=== PATIENT | male | born 1940 | race Caucasian/White ===

== ENCOUNTER 2022-12-20 05:35 | Inpatient (IN) | payer MEDICARE, BC, SELFPAY ==
[2022-12-20] VITALS (117 sets, daily range): BP systolic 78–130; BP diastolic 52–111; PULSE 66–155; RESP 12–35; TEMP 36.4–37.3; O2SAT 89–100; BMI 32.5
--- NOTE | ~2022-12-20 | XR_ITS ---
MODIFIED ESOPHAGRAM HISTORY: Dysphagia. TECHNIQUE: Modified barium esophagram was performed on 12/26/2022. I administered fluoroscopy and per formed the exam with speech pathologist. Patient was seated for lateral fluoroscopic imaging for ing estion of thin liquids, pudding, solids and quantified amounts, followed by thin liquids in uncontrol led amounts. This was recorded on tape. A single fluoroscopic spot image was also recorded. The DAP f or this procedure was 3.083 Gycm2. The amount of fluoroscopy time used during this procedure was 3.0 minutes. FINDINGS: Oral stage: Adequate function. Pharyngeal stage: Reduced laryngeal elevation and tongue base retraction. There is laryngeal penetrat ion with thin and nectar thick liquids without aspiration. This is improved with small sips and head flexion.. Cervical/esophageal stage: Adequate function. IMPRESSION: Pharyngeal dysphagia with laryngeal penetration without aspiration. Please correlate wit h speech pathologist findings and specific feeding recommendations. Reviewed, dictated and finalized at location A. IMPRESSION: Pharyngeal dysphagia with laryngeal penetration without aspiration. Please correlate with speech pathologist findings and specific feeding recomm endations.
--- NOTE | ~2022-12-20 | XR_ITS ---
EXAMINATION: XR barium swallow DATE: 12/25/2022 14:10 INDICATION: Dysphagia TECHNIQUE: The patient drank thick barium, gas-producing crystals, and thin barium. Fluoroscopic spot radiographs of the hypopharynx and esophagus were obtained. Fluoroscopy exposure time was 1.8 minut es. Total DAP was 22.114 Gycm^2 COMPARISON: CT dated 12/23/2022 FINDINGS: The pharynx is symmetric and without evidence of mass lesion or mucosal irregularity. There is small amount of laryngeal penetration without evident aspiration. The left atrium appears to exer t mass effect upon the distal esophagus which is deviated towards the left. There is an oblique band of extrinsic compression with the esophagus passes between the left atrium and the more posterior aor ta. There is a relatively abrupt change in course of the esophagus as it exits the thoracic hiatus. T he esophagus is otherwise normal without mass or stricture. There is interruption of the primary jing staltic wave at the junction of the mid to distal esophagus with subsequent tertiary contractions in the more proximal esophagus. There is no hiatal hernia. There was no gastroesophageal reflux with pro vocative maneuvers. IMPRESSION: 1. Mild likely age-related esophageal dysmotility as well as nonobstructing extrinsic compression of the esophagus were passed from medial collateral between the left atrium and the descending aorta. No evident strictures, mucosal irregularities or abnormal masses. 2. Small amount of laryngeal penetration without evident aspiration. Consider further formal evaluati on with modified swallow study performed in conjunction with the department of speech pathology. Reviewed, dictated and finalized at location A. IMPRESSION: 1. Mild likely age-related esophageal dysmotility as well as nonobstructing ext rinsic compression of the esophagus were passed from medial collateral between the left atrium and the descending aorta. No evident strictures, mucosal irregu larities or abnormal masses. 2. Small amount of laryngeal penetration without evident aspiration. Consider f urther formal evaluation with modified swallow study performed in conjunction w [facility] the department of speech pathology.
--- NOTE | ~2022-12-20 | XR_ITS ---
XR chest 1V portable 12/21/2022 17:41 Indication: Decreased level consciousness. Shortness of breath. Procedure: AP portable chest Comparison: Comparison to multiple prior studies sequentially, with oldest reviewed study dated 05/30. Findings: Heart size normal. Pacemaker leads are stable. Left basilar airspace disease. Small left pl eural effusion. No pneumothorax. No acute osseous abnormality. Impression: 1: Left basilar airspace disease may represent atelectasis or developing pneumonia. Reviewed, dictated and finalized at location A. Impression: 1: Left basilar airspace disease may represent atelectasis or developing pneumo zelalem.
--- NOTE | ~2022-12-20 | XR_ITS ---
Portable chest x-ray Comparison: 05/30/2006 Clinical History: Shortness of breath Findings: Questionable minimal interstitial prominence, nonspecific. No consolidation or definite pl eural effusion. Cardiomediastinal silhouette is stable, with pacemaker device. Bones and soft tissue s are unremarkable. Impression: Questionable minimal interstitial prominence. Correlate for minimal interstitial edema or chronic int erstitial disease. Pacemaker device. Reviewed, dictated and finalized at location . Impression: Questionable minimal interstitial prominence. Correlate for minimal interstitia l edema or chronic interstitial disease. Pacemaker device.
--- NOTE | ~2022-12-20 | CT_ITS ---
EXAMINATION: CT soft tissue neck chest wo DATE: 12/23/2022 16:34 INDICATION: Dysphagia TECHNIQUE: Computed tomography (CT) of the neck and chest was performed with 75 mL Omnipaque-350 intr avenous contrast. Sagittal and coronal reconstructions were performed. Automated exposure control and iterative reconstruction technique were employed. The dose-length product was 1114.91 mGy-cm. COMPARISON: None FINDINGS: NECK: Changes of bilateral intraocular lens replacement. Orbits are otherwise normal. Minimal dependently layering fluid in the left sphenoid sinus. Mastoid air cells are clear. Submandibular and parotid gla nds are symmetric. Thyroid gland is unremarkable. There are scattered normal-sized lymph nodes in the neck, no lymphadenopathy. No masses identified. Atherosclerotic calcification is at the bilateral c arotid bulbs. Airway is unremarkable. Severe cervical spondylosis with anterior and posterior fusion at C3-C5. CHEST: Small to moderate-sized bilateral posterior layering pleural effusions with dependent compressive ate lectasis in the bilateral upper and lower lobes. Aerated portions the lungs appear clear with no pulm onary edema. Heart size is normal. Atherosclerotic coronary artery calcifications. Aortic valve and m itral annular calcifications. Dual-lead cardiac pacemaker with lead tips at the right atrium and righ t ventricle. Thoracic aorta is normal in caliber. No pathologically enlarged thoracic lymphadenopathy . Multiple hepatic cysts the largest measuring 7 cm the left hepatic lobe. Severe thoracic spondylos is with minimal to mild anterior wedging at a few levels in the mid and lower thoracic spine. IMPRESSION: 1. Small to moderate-sized bilateral posterior layering pleural effusions with dependent compressive atelectasis. 2. No etiology for reported dysphagia. No abnormal masses or pathologically enlarged lymphadenopathy identified in the and neck or chest. Reviewed, dictated and finalized at location A. IMPRESSION: 1. Small to moderate-sized bilateral posterior layering pleural effusions with dependent compressive atelectasis. 2. No etiology for reported dysphagia. No abnormal masses or pathologically enl arged lymphadenopathy identified in the and neck or chest.
--- NOTE | ~2022-12-20 | XR_ITS ---
EXAMINATION: XR chest PICC line DATE: 12/23/2022 12:26 INDICATION: Central line placement. TECHNIQUE: A single frontal view of the chest was obtained. COMPARISON: Chest single view 12/21/2022 FINDINGS: There are mild airspace opacities in right mid and lower lung zones and left lower lung zon e. No pleural effusion or pneumothorax. The heart size is normal. There is a left chest wall pacer wi th leads in the right atrium and right ventricle. A right upper extremity peripherally inserted centr al venous catheter (PICC) is seen with tip in the superior vena cava. IMPRESSION: 1. PICC tip in the superior vena cava. 2. Mild airspace opacities in right mid and lower lung zones and left lower lung zone with worsening on the right, consistent with atelectasis versus pneumonia. Reviewed, dictated and finalized at location A. IMPRESSION: 1. PICC tip in the superior vena cava. 2. Mild airspace opacities in right mid and lower lung zones and left lower hattie g zone with worsening on the right, consistent with atelectasis versus pneumoni a.
--- NOTE | 2022-12-20 05:37 | ECG_ITS ---
Measurements Intervals [place] Rate: 142 P: [place]: 0 QRS: -26 QRSD: 134 T: 140 QT: 312 QTc: 481 Interpretive Statements ATRIAL FIBRILLATION WITH RAPID VENTRICULAR RESPONSE LEFT BUNDLE BRANCH BLOCK [120+ ms QRS DURATION, 80+ ms Q/S IN V1/V2, 85+ ms R IN I/aVL/V5/V6] ABNORMAL ECG NO PREVIOUS ECG AVAILABLE FOR COMPARISON Electronically Signed On 12-20-2022 10:32:48 CDT by Stanley Caldwell M.D.
--- NOTE | 2022-12-20 05:47 | ED.ARRPALP ---
HPI - Arrhythmia/Palpitations General Chief Complaint: Arrhythmia/Palpitations <Elizabeth Ellis MD - Last Filed: 12/20/22 05:58> Stated Complaint: SOB, TACHYCARDIC <Elizabeth Ellis MD - Last Filed: 12/20/22 05:58> Time Seen by Provider: 12/20/22 05:43 <Elizabeth Ellis MD - Last Filed: 12/20/22 05:58> Source: patient, family, EMS and RN notes reviewed <Moon Pa MD - Last Filed: 12/20/22 17:52> Mode of arrival: EMS <Moon Pa MD - Last Filed: 12/20/22 17:52> Limitations: no limitations <Moon Pa MD - Last Filed: 12/20/22 17:52> History of Present Illness HPI narrative: Pt presents to the ER with shortness of breath and a sensation of something popping in his neck. He has a history of afib and his HR is 140s. EMS gave him metoprolol en route. He denies chest pain <Elizabeth Ellis MD - Last Filed: 12/20/22 05:58> Pt presents to the ER with shortness of breath and a cough. His family states patient has been cough for 2 days. He has cough with clear phlegm. His family states he has coughing spells that make his face turn red. Patient reports he feels short of breath with severe coughing. He took tessalon perles prior to arrival . He denies fever, chills, leg swelling. His family states patient was in hospital in september for afib. They reporte he was discharged still in afib. EMS gave him metoprolol en route. He denies chest pain <Moon Pa MD - Last Filed: 12/20/22 17:52> Related Data Home Medications: Home Medications Medication Instructions Recorded Confirmed diltiazem HCl 120 mg 120 mg PO DAILY 12/20/22 12/20/22 capsule,extended release 24 hr rosuvastatin 5 mg tablet 5 mg PO HS 12/20/22 12/20/22 tamsulosin 0.4 mg capsule 0.4 mg PO HS 12/20/22 12/20/22 warfarin 5 mg tablet mg 12/20/22 <Elizabeth Ellis MD - Last Filed: 12/20/22 05:58> Allergies/Adverse Reactions: Allergies Allergy/AdvReac Type Severity Reaction Status Date / Time codeine Allergy Unknown Verified 06/24/08 15:37 milk Allergy Unknown LACTOSE Verified 06/24/08 15:37 INTOLERANT <Elizabeth Ellis MD - Last Filed: 12/20/22 05:58> Review of Systems Review of Systems: ros negative except for what is documented in the hpi <Elizabeth Ellis MD - Last Filed: 12/20/22 05:58> Constitutional: Constitutional: Denies weakness <Moon Pa MD - Last Filed: 12/20/22 17:52> ENT: Reports sore throat <Moon Pa MD - Last Filed: 12/20/22 17:52> Cardiovascular: Cardiovascular: Denies syncope, Denies rapid heart rate, Reports irregular heart rhythm, Denies leg edema and Reports dyspnea <Moon Pa MD - Last Filed: 12/20/22 17:52> Respiratory: Respiratory: Reports chest congestion, Reports cough, Denies hemoptysis, Denies excessive phlegm production and Reports dyspnea <Moon Pa MD - Last Filed: 12/20/22 17:52> Gastrointestinal: Gastrointestinal: Denies abdominal pain, Denies hematochezia, Denies diarrhea and Denies vomiting <Moon Pa MD - Last Filed: 12/20/22 17:52> Genitourinary: Genitourinary: Denies hematuria, Denies dysuria, Denies penile discharge and Denies testicular pain <Moon Pa MD - Last Filed: 12/20/22 17:52> Musculoskeletal: Musculoskeletal: Denies joint swelling, Denies loss of height and Denies muscle weakness <Moon Pa MD - Last Filed: 12/20/22 17:52> Neurologic: Denies syncope, Denies focal weakness and Denies weakness <Moon Pa MD - Last Filed: 12/20/22 17:52> [facility] Past Medical History Medical History: Medical History (Updated 12/20/22 @ 17:52 by Moon Pa MD) Atrial fibrillation BPH (benign prostatic hyperplasia) HLD (hyperlipidemia) [place] (hard of hearing) IRIS on CPAP <Elizabeth Ellis MD - Last Filed: 12/20/22 05:58> Surgical History Surgical History: Surgical History (Updated 12/20/22 @ 14:18 by Ute
[2022-12-20 06:04] LABS: Basophils Percent Auto 0.5 % (0.2-1.2); Eosinophils Absolute Auto 0.1 K/mm3 (0-0.3); Eosinophils Percent Auto 0.9 % (0-4.4); Hematocrit 38.3 % (42.0-52.0); Hemoglobin 12.7 g/dL (14.0-18.0); Immature Granulocyte Absolute 0.07 K/mm3 (0.00-0.031); Immature Granulocyte Percent A 0.9 % (0-0.5); Lymphocytes Absolute Auto 0.88 K/mm3 (0.9-3.2); Lymphocytes Percent Auto 11.1 % (18.3-44.2); Mean Corpuscular HGB Conc 33.2 g/dl (32-36); Mean Corpuscular Hemoglobin 31.7 pg (26-34); Mean Corpuscular Volume 95.5 fl (80-100); Mean Platelet Volume 10.9 fl (7.4-10.4); Monocytes Absolute Auto 0.5 K/mm3 (0.1-0.6); Monocytes Percent Auto 5.9 % (2.6-8.5); Neutrophils Absolute Auto 6.4 K/mm3 (1.3-6.7); Neutrophils Percent Auto 80.7 % (45.5-73.1); Platelet Count Result 150 k/mm3 (150-375); Red Blood Count 4.01 M/mm3 (4.6-6.20); Red Cell Distribution Width 13.7 % (11.5-14.5); White Blood Count 7.9 K/mm3 (4.5-10.0)
[2022-12-20 06:15] LABS: INR 2.4; Prothrombin Time 27.7 Seconds (11.1-14.7)
[2022-12-20 06:16] LABS: Partial Thromboplastin Time 41.9 SECONDS (22.3-36.8)
[2022-12-20 06:17] LABS: Alanine Aminotransferase 23 U/L (6-50); Albumin Level 3.7 g/dL (3.5-5.1); Alkaline Phosphatase 75 U/L (38-126); Anion Gap 6 mmol/L (8-16); Aspartate Amino Transferase 27 U/L (17-59); Bilirubin,Total 1.6 mg/dL (0.2-1.3); Blood Urea Nitrogen 25 mg/dL (9-20); Carbon Dioxide 23 mmol/L (22-30); Chloride 105 mmol/L (98-107); Estimated CRCL calculation 48 ml/min; Estimated Glomerular Filt Rate 58; Glucose 113 mg/dL (65-110); Lipase 82 U/L (23-300); Potassium 3.8 mmol/L (3.4-5.0); Sodium 134 mmol/L (137-145)
[2022-12-20 06:28] LABS: Troponin I < 0.012 ng/mL (0.000-0.034)
[2022-12-20] MEDS: dilTIAZem HCl INJ 25 MG/5 ML VIAL 10 MG IV PUSH (06:31)
[2022-12-20 06:41] LABS: D Dimer 0.66 ug/mL (<0.48)
[2022-12-20 06:45] LABS: Influenza A QL RT-PCR Negative (Negative); Influenza B QL RT-PCR Negative (Negative); RSV RNA, RT-PCR Negative (Negative); SARS-CoV-2 RNA PCR Negative (Negative)
[2022-12-20] MEDS: dilTIAZem 100 MG/100 ML 100 MG/100 ML BAG IV CONT (06:52)
[2022-12-20] MEDS: BENZONATATE 100 MG CAPSULE PO (07:25)
--- NOTE | 2022-12-20 09:09 | PC.NURSE ---
0858 IV that Cardizem was administering through assessed to be infiltrated. IV insertion site assessed to have hematoma and redness. IV removed intact and Cardizem is now administering through the L forearm. Pts dosage rate dropped to 5mL/hr due to IV infiltration. aware.
[2022-12-20 09:36] LABS: Troponin I < 0.012 ng/mL (0.000-0.034)
[2022-12-20 12:19] LABS: Troponin I < 0.012 ng/mL (0.000-0.034)
--- NOTE | 2022-12-20 14:11 | PM.IMHP ---
H&P: HPI History of Present Illness Date/Time: 12/20/22 14:11 Chief Complaint: Cough, SOB Narrative: 82-year-old male presents here with worsening shortness of breath for the last 3 days, dry cough, tachycardia with past medical history of atrial fibrillation on Warfarin, pacemaker, [place], HLD, BPH, and IRIS. Patient reports that he has had increasing shortness of breath with activity over the last few months, used to be able to walk approximately a block and is now winded with activity. Over the last 3 days his shortness of breath has worsened. Shortness of breath is accompanied by a dry cough. Patient has spells of coughing where he is unable to catch his breath and experiences facial flushing. Endorses occasional acid reflux symptoms and belching. Also noticed a popping sensation to his left lateral neck whenever he leans forward for the past few months. He denies any current fever, nausea, vomiting, diarrhea. Reports baseline rhinorrhea. Denies any current chest pain. Recent increase in stress due to being on hospice care and not doing well. Review of Systems Review of Systems: All systems reviewed & are unremarkable except as noted in HPI and below PMFSH Past Medical History Medical History (Updated 12/20/22 @ 17:52 by Moon Pa MD) Atrial fibrillation BPH (benign prostatic hyperplasia) HLD (hyperlipidemia) [place] (hard of hearing) IRIS on CPAP Surgical History Surgical History (Updated 12/20/22 @ 14:18 by Keara Stiles APRN) History of pacemaker Social History Social History (Updated 12/21/22 @ 00:23 by Keara Stiles APRN) Social History: Currently lives at home alone. being cared for at a facility. 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 Surrogate decision maker: Ronnie Durand, son. DNR. Smoking status: Never smoker Alcohol intake: never Substance use: never Lack of Transportation: No Lack of Food: Never True Current Housing: I Have Housing Concerned About Future Housing: No Difficulty Paying Gas/Electric Bills: No Difficulty Paying for Meds: No Currently Unemployed: No Education: Don't Know Difficulty w/ Childcare or Family Care: No Spiritual care concerns: No Meds Home Medications and Allergies Home Medications Medication Instructions Recorded Confirmed Type calcium citrate 315 mg-vitamin D3 315 tablet PO BID 12/20/22 12/20/22 History 5 mcg (200 unit) tablet (Calcium Citrate + D) cholecalciferol (vitamin D3) 25 25 mcg PO BID 12/20/22 12/20/22 History mcg (1,000 unit) tablet (Vitamin D3) diltiazem HCl 120 mg 120 mg PO DAILY 12/20/22 12/20/22 History capsule,extended release 24 hr glucosamine sulf dipot 550 cap PO BID 12/20/22 12/20/22 History chlr,msm,chond 550 mg-C 30 mg-jaleel 1 mg capsule (Glucosamine Chondroitin) rosuvastatin 5 mg tablet 5 mg PO HS 12/20/22 12/20/22 History tamsulosin 0.4 mg capsule 0.4 mg PO HS 12/20/22 12/20/22 History warfarin 5 mg tablet See Rx Instructions .Route .COMPLEX 12/20/22 12/20/22 History Allergies Allergy/AdvReac Type Severity Reaction Status Date / Time carvedilol Allergy Unknown Unknown Verified 12/20/22 19:09 codeine Allergy Unknown Hallucinati Verified 12/20/22 19:09 ng milk Allergy Unknown LACTOSE Verified 06/24/08 15:37 INTOLERANT Vital Signs Vital Signs - 24 hr 12/20/22 05:33 12/20/22 05:50 12/20/22 05:53 Temperature 99.1 F Pulse Rate 152 H 136 H 152 H Respiratory Rate 19 15 Blood Pressure 101/90 102/81 Pulse Oximetry 93 93 Oxygen Delivery Room Air 12/20/22 06:49 12/20/22 06:52 12/20/22 07:29 Temperature Pulse Rate 118 H 123 H 137 H Respiratory Rate 15 Blood Pressure 101/74 101/74 102/89 Pulse Oximetry 95 Oxygen Delivery 12/20/22 05:53 12/20/22 06:00 12/20/22 06:01 Temperature Pulse Rate 155 H 150 H 134 H Respiratory Rate 15 21 H 19 Blood Pressure 102/81 109/98 H Pulse Oximetry 92 92 92 Oxyge
[2022-12-20 14:18] LABS: NT Pro B Type Natriuretic Pept 5070 pg/mL (19.9-100)
[2022-12-20] MEDS: DEXTROMETHORPHAN POLISTIREX 60 MG/10 ML SYRINGE PO (14:23)
[2022-12-20] MEDS: BELLADONNA ALK/PHENOB ELIX 10 ML, MAG HYDROX/ALUMINUM HYD/SIMETH 30 ML, LIDOCAINE HCL 2... PO (14:59)
[2022-12-20] MEDS: dilTIAZem 100 MG/100 ML 100 MG/100 ML BAG 15 MG (16:53)
--- NOTE | 2022-12-20 17:05 | ADMGEN ---
This patient, Socrates Durand, was admitted to IMU Room 212-01. Patient/family oriented to hospital policies and general routines including ID bracelet, bed and alarms, visiting hours, pain management, procedures, bathroom and other care routines, personal items, smoking policy, room service/diet, and visiting hours. Information on how to activate the Rapid Response Team has been discussed. Patient/Family are encouraged to report perceived risks to care and to ask questions if they do not understand what they are told or what they should do.
[2022-12-20] MEDS: dilTIAZem 100 MG/100 ML 100 MG/100 ML BAG 15 MG IV CONT (18:49)
[2022-12-20 20:45] LABS: Troponin I < 0.012 ng/mL (0.000-0.034)
[2022-12-20] MEDS: DIGOXIN INJ 250 MCG/ML 2 ML AMP (*BKC) IV PUSH (20:56)
[2022-12-21] VITALS (21 sets, daily range): BP systolic 97–111; BP diastolic 67–82; PULSE 66–130; RESP 16–22; TEMP 36.2–36.5; O2SAT 92–97
--- NOTE | 2022-12-21 | ECG_ITS ---
Measurements Intervals [place] Rate: 73 P: [place]: 0 QRS: -11 QRSD: 131 T: 120 QT: 384 QTc: 424 Interpretive Statements ELECTRONIC VENTRICULAR PACEMAKER Electronically Signed On 12-23-2022 17:05:54 CDT by Bradly Rashid M.D.
--- NOTE | 2022-12-21 | ECHO_ITS ---
Patient Info Name: Socrates Durand Age: 82 years : 1940 Gender: Male Ht: 69 in Wt: 223 lbs BSA: 2.25 m2 HR: 112 bpm BP: 105 / 74 mmHg Heart Rhythm: Tachycardia, Atrial Fibrillation Technical Quality: Poor Exam Date: 12/21/2022 1:01 PM Exam Location: [facility] Pulmonary Exam Room: [facility] Patient Status: Inpatient Admit Date: 12/21/2022 Staff Ordering Physician: Keara Stiles APRN Freezer Worker: Amanda Mccoy RDCS Attending Provider: Lela Robledo MD Referring Physician: Go IVEY; Exam Type: CA echo dop color flow w con Study Info Indications - ELEVATED BNP SOB Complete two-dimensional, color flow and Doppler transthoracic echocardiogram is performed with contrast to opacify the left ventricle and to improve the deliniation of the left ventricle endocardial borders. Contrast/Agitated Saline Contrast/Ag. Saline: Definity Amount: 2.00 ml Administered By: Amanda Mccoy [facility] Existing IV Access: Yes IV Access Condition: patent with no signs of infiltration Reason for Poor Study: patient body habitus Summary 1. Technically difficult study. 2. Left ventricular chamber dimension is normal. 3. Left ventricular systolic function is moderately reduced, estimated at 30-35%. Of note, patient is tachycardic at the time of this study. 4. Left atrial chamber dimension is moderately enlarged. 5. Right atrial chamber dimension is moderately enlarged. 6. There is severe aortic valve calcification. The aortic valve mean gradient on this study is 5mmHg with a normal JAMAR. However, the aortic valve was not well assessed on this study, and given the severe calcifications, recommend a follow-up study or consider WENDY for better assessment of the aortic valve if concern for significant aortic stenosis. 7. There is moderate mitral valve regurgitation. 8. There is moderate to severe tricuspid valve regurgitation. 9. Pulmonary hyperetension. Estimated pulmonary arterial systolic pressure is 50 mmHg. 10. There is trivial pericardial effusion. Left Ventricle Left ventricular chamber dimension is normal. Left ventricular systolic function is moderately reduced, estimated at 30-35%. Of note, patient is tachycardic at the time of this study. There is no increased left ventricular wall thickness. Left ventricular septal wall motion is abnormal with septal motion related to bundle branch block. The left ventricular diastolic function is indeterminate. Right Ventricle Linear artifact in right ventricle suggestive of catheter(s), pacemaker lead(s), or ICD lead(s). Right ventricular chamber dimension is normal. Left Atria Left atrial chamber dimension is moderately enlarged. Right Atria Linear artifact in the right atrium suggestive of catheter(s), pacemaker lead(s), or ICD lead(s). Right atrial chamber dimension is moderately enlarged. Atrial Septum Intact interatrial septum visualized by color flow imaging. Aortic Valve The aortic valve is probable trileaflet. There is no aortic valve regurgitation. There is severe aortic valve calcification. The aortic valve mean gradient on this study is 5mmHg with a normal JAMAR. However, the aortic valve was not well assessed on this study, and given the severe calcifications, recommend a follow-up study or consider WENDY for better assessment of the aortic valve if concern for significant aortic stenosis. Pulmonic Valve The pulmonic valve is not well visualized. Mitral Valve There is moderate mitral valve regurgitation. The mitral valve annulus is severely calcified. Tricuspid Valve
[2022-12-21] MEDS: dilTIAZem 100 MG/100 ML 100 MG/100 ML BAG 15 MG IV CONT ×3 (05:10→12:39)
[2022-12-21 05:22] LABS: Basophils Percent Auto 0.1 % (0.2-1.2); Eosinophils Percent Auto 0.4 % (0-4.4); Hematocrit 36.7 % (42.0-52.0); Hemoglobin 12.4 g/dL (14.0-18.0); Immature Granulocyte Absolute 0.04 K/mm3 (0.00-0.031); Immature Granulocyte Percent A 0.5 % (0-0.5); Immature Platelet Fraction Pct 5.6 % (0.9-11.2); Lymphocytes Absolute Auto 1.05 K/mm3 (0.9-3.2); Lymphocytes Percent Auto 13.3 % (18.3-44.2); Mean Corpuscular HGB Conc 33.8 g/dl (32-36); Mean Corpuscular Volume 94.6 fl (80-100); Mean Platelet Volume 11.1 fl (7.4-10.4); Monocytes Absolute Auto 0.6 K/mm3 (0.1-0.6); Monocytes Percent Auto 7.4 % (2.6-8.5); Neutrophils Absolute Auto 6.2 K/mm3 (1.3-6.7); Neutrophils Percent Auto 78.3 % (45.5-73.1); Platelet Count Result 146 k/mm3 (150-375); Red Blood Count 3.88 M/mm3 (4.6-6.20); Red Cell Distribution Width 13.6 % (11.5-14.5); White Blood Count 7.9 K/mm3 (4.5-10.0)
[2022-12-21 05:34] LABS: Alanine Aminotransferase 21 U/L (6-50); Albumin Level 3.2 g/dL (3.5-5.1); Alkaline Phosphatase 61 U/L (38-126); Anion Gap 7 mmol/L (8-16); Aspartate Amino Transferase 26 U/L (17-59); Bilirubin,Total 1.9 mg/dL (0.2-1.3); Blood Urea Nitrogen 23 mg/dL (9-20); Calcium 8.3 mg/dL (8.4-10.2); Carbon Dioxide 20 mmol/L (22-30); Chloride 105 mmol/L (98-107); Estimated CRCL calculation 48 ml/min; Estimated Glomerular Filt Rate 58; Glucose 94 mg/dL (65-110); Sodium 132 mmol/L (137-145)
[2022-12-21] MEDS: CHOLECALCIFEROL 1,000 UNITS TABLET 1000 UNITS PO (09:43)
--- NOTE | 2022-12-21 10:53 | PM.CNCAR ---
Assessment and Plan Assessment and plan (1) Atrial fibrillation with rapid ventricular response: Code(s): I48.91 - Unspecified atrial fibrillation Status: Acute Assessment and Plan: Continue diltiazem drip for now. Will give him a dose of IV amiodarone to see if this will help in slowing his heart rate. Blood pressure is a bit low but will ideally use of beta-jan. If blood pressure remains stable, will add metoprolol. Continue warfarin for anticoagulation. 2D echocardiogram Doppler will be ordered and reviewed. (2) Chronic anticoagulation: Code(s): Z79.01 - [facility] (current) use of anticoagulants Status: Acute Assessment and Plan: Continue warfarin (3) Nonproductive cough: Code(s): R05.8 - Other specified cough Status: Acute (4) CHF (congestive heart failure): Code(s): I50.9 - Heart failure, unspecified Status: Acute Assessment and Plan: Probably related atrial fibrillation rapid ventricular response and systolic/diastolic heart failure. We will start furosemide 40 mg IV x1 now and daily. Low-salt diet. Intake and output and daily weights. (5) Left bundle branch block: Code(s): I44.7 - Left bundle-branch block, unspecified Status: Acute Assessment and Plan: Echo pending (6) Pacemaker: Code(s): Z95.0 - Presence of cardiac pacemaker Status: Acute Assessment and Plan: Biotronik device. Like to have a download to see how long he has been in atrial fibrillation what his average ventricular response rate has been History of Present Illness History of Present Illness Consult date/time: 12/21/22 10:53 Requesting physician: Moon Pa MD Consult reason: atrial fibrillation Reason For Visit: afib with rvr,chf Narrative: Reason consultation AFib, CHF Date of service 12/21/2022 Requesting provider: Dr. Pa History: Patient 82-year-old male patient Dr. Rain who has a history of a pacemaker, atrial fibrillation on warfarin, hyperlipidemia sleep apnea who presented hospital because of coughing and shortness of breath. Patient feels like he has been more short of breath over the past several weeks. He has also had some swelling. Biggest complaint more worrisome complaints does coughing spells in which she nearly passes out. He will cough so hard his face will turn red. He denies any chest pain except due to coughing. No syncope, presyncope. Does have lower extremity swelling over the past couple of weeks also. He does not feel his palpitations. He usually feels weak whenever he is in AFib in has felt so over the past few weeks. He denies any bleeding issues. Came to the hospital and was found to be in atrial fibrillation with rapid ventricular response. Started on diltiazem drip for which he remains. Heart rate is still mildly elevated. He also had some pulmonary edema. Review of Systems Review of Systems: All systems reviewed & are unremarkable except as noted in HPI and below Constitutional: Constitutional: Denies body ache(s) and Reports weakness Eyes: Eyes: Denies blurry vision ENT: Reports Normal hearing present Cardiovascular: Cardiovascular: Denies chest pain and Reports leg edema Respiratory: Respiratory: Reports dyspnea Gastrointestinal: Gastrointestinal: Denies abdominal pain Genitourinary: Genitourinary: Denies hematuria Musculoskeletal: Musculoskeletal: Denies back pain Integumentary/Breasts: Skin/Breast: Denies dry skin Neurologic: Denies Abnormal speech present Psychiatric: Psychiatric: Denies anxiety Endocrine: Endocrine: Denies excessive sweating Hematologic/Lymphatic: Hematologic/Lymphatic: Denies easy bleeding Allergic/Immunologic: Allergic/Immunologic: Denies GI upset with certain foods PMFSH Past Medical History Medical History Atrial fibrillation BPH (benign prostatic hyperplasia) HLD (hyperli
[2022-12-21] MEDS: FUROSEMIDE INJ 40 MG/4 ML VIAL IV PUSH (12:13)
[2022-12-21] MEDS: PERFLUTREN LIPID MICROSPHERES 1.5 ML VIAL DILUTED TO 10 ML TOTAL VOLUME IV PUSH (13:40)
[2022-12-21] MEDS: METOPROLOL TARTRATE 25 MG TABLET PO (14:03)
--- NOTE | 2022-12-21 14:24 | PM.IMPN ---
Progress Note: A&P Assessment and Plan (1) CHF (congestive heart failure): Code(s): I50.9 - Heart failure, unspecified Status: Acute (2) Chronic anticoagulation: Code(s): Z79.01 - [facility] (current) use of anticoagulants Status: Acute (3) Atrial fibrillation with rapid ventricular response: Code(s): I48.91 - Unspecified atrial fibrillation Status: Acute (4) Pacemaker: Code(s): Z95.0 - Presence of cardiac pacemaker Status: Acute Plan 82M w/ PMH IRIS on CPAP, HLD, BPH, a fib, PPM, on coumadin presents with progressive SOB 1) a fib w/ RVR - on diltiazem. cardiology consulted. they are giving lasix and metoprolol PO. continue to monitor. pt reports some kind of reaction when given amiodarone. we are avoiding that for now - echo pending 2) HF - pending echo - s/p lasix x1 - cont cardiac diet, I/O's daily weights and fluid restrition - cardiology to manage Diet:? Heart healthy, saline lock IV GI Prophylaxis:? Not currently indicated DVT Prophylaxis:? On warfarin, SCDs Lines: pIV Code Status: DNR Subjective Date/time seen: 12/21/22 14:24 Interval history: NAOE. pt feels same as yesterday, no cp no shortness of breath. Review of Systems Cardiovascular: Cardiovascular: Denies chest pain and Denies dyspnea Respiratory: Respiratory: Denies cough and Denies dyspnea Gastrointestinal: Gastrointestinal: Denies abdominal pain and Denies vomiting Exam Const: General: no acute distress, alert and Physically active Resp: Effort & Inspection: normal respiratory effort Auscultation: crackles (mild bibasilar crackles) Cardio: Rate: regular rate Rhythm: regular rhythm Heart sounds: S1 normal heart sound present and S2 normal heart sound present GI: Inspection: non-distended GI Palp: No abdominal tenderness Auscultation: normal bowel sounds Extrem: Right upper extremity: no edema Objective Data Vital Signs Vital Signs: Vital Signs - 24 hr 12/20/22 14:30 12/20/22 14:32 12/20/22 14:45 Temperature Pulse Rate 149 H 130 H Respiratory Rate 27 H 23 H Blood Pressure 126/62 Pulse Oximetry Oxygen Delivery 12/20/22 14:47 12/20/22 15:00 12/20/22 15:01 Temperature Pulse Rate 136 H 140 H 137 H Respiratory Rate 16 27 H 16 Blood Pressure 101/74 93/80 L Pulse Oximetry Oxygen Delivery 12/20/22 15:15 12/20/22 15:16 12/20/22 15:30 Temperature Pulse Rate 124 H 122 H 130 H Respiratory Rate 23 H 23 H 22 H Blood Pressure 106/79 Pulse Oximetry 93 92 Oxygen Delivery 12/20/22 15:31 12/20/22 15:32 12/20/22 15:45 Temperature Pulse Rate 126 H 112 H 133 H Respiratory Rate 24 H 22 H 20 Blood Pressure 100/85 Pulse Oximetry Oxygen Delivery 12/20/22 15:47 12/20/22 16:00 12/20/22 16:01 Temperature Pulse Rate 111 H 131 H 118 H Respiratory Rate 35 H 20 27 H Blood Pressure 116/94 H 126/99 H Pulse Oximetry Oxygen Delivery 12/20/22 16:19 12/20/22 16:53 12/20/22 16:32 Temperature Pulse Rate 139 H 145 H 114 H Respiratory Rate 18 Blood Pressure 110/96 H 102/88 111/74 Pulse Oximetry 98 Oxygen Delivery 12/20/22 17:55 12/20/22 18:49 12/20/22 18:00 Temperature 98.3 F Pulse Rate 66 115 H 94 Respiratory Rate 18 Blood Pressure 130/53 L 130/53 L Pulse Oximetry 97 Oxygen Delivery 12/20/22 17:38 12/20/22 20:00 12/20/22 20:00 Temperature 97.5 F L Pulse Rate 129 H Respiratory Rate 22 H Blood Pressure 130/111 H Pulse Oximetry 97 92 92 Oxygen Delivery Room Air Room Air 12/20/22 20:00 12/21/22 00:00 12/21/22 00:00 Temperature 97.5 F L Pulse Rate 103 H 107 H Respiratory Rate 22 H Blood Pressure 97/71 L Pulse Oximetry 97 97 Oxygen Delivery Room Air 12/21/22 00:00 12/21/22 00:00 12/21/22 00:00 Temperature Pulse Rate 114 H 114 H 114 H Respiratory Rate Blood Pressure Pulse Oximetry Oxygen Delivery 12/21/22 01:40 12/21/22 03:54 10
--- NOTE | 2022-12-21 15:44 | PC.NURSE ---
BP 102/67. HR 120s sustained. Detailed message left with Dr. Caldwell.
[2022-12-21] MEDS: IPRATROPIUM BR 0.02% INH SOLN 0.5 MG/2.5 ML VIAL INHALATION (17:33)
[2022-12-21] MEDS: ALBUTEROL SULFATE NEB 2.5 MG/3 ML INH INHALATION (17:33)
--- NOTE | 2022-12-21 17:36 | PC.NURSE ---
Pt hit call light. Upon entering room pt was sitting in bed stating I don't feel well, I feel like I'm going to pass out. BP 103/57, HR 85, O2 87% RA. Afib on tele. Reports nausea. SOB. Charge nurse JEANNIE Matos and Dr. Robledo made aware. Dr. Caldwell consulted via [employer]. EKG completed. Paced Afib. Diltiazem gtt paused. Placed on 2L via NC.
--- NOTE | 2022-12-21 17:52 | PC.NURSE ---
Sitting up in bed. Alert and oriented x 4. Mild SOB at rest. States I'm feeling better but I don't think I want to eat. Reports feeling fatigued and weak. HR 82. BP 100/53. O293% ON 1L.
[2022-12-21] MEDS: WARFARIN (*PBKC) 2.5 MG TABLET PO (18:04)
[2022-12-21 18:13] LABS: Hemoglobin 13.2 g/dL (14.0-18.0); Mean Corpuscular Hemoglobin 31.9 pg (26-34); Mean Corpuscular Volume 96.6 fl (80-100); Mean Platelet Volume 10.6 fl (7.4-10.4); Platelet Count Result 157 k/mm3 (150-375); Red Blood Count 4.14 M/mm3 (4.6-6.20); Red Cell Distribution Width 14.3 % (11.5-14.5); White Blood Count 8.6 K/mm3 (4.5-10.0)
[2022-12-21 18:23] LABS: Lactic Acid Reflex 1.7 mmol/L (0.7-2.0)
[2022-12-21 18:24] LABS: Alanine Aminotransferase 22 U/L (6-50); Albumin Level 3.5 g/dL (3.5-5.1); Alkaline Phosphatase 70 U/L (38-126); Anion Gap 8 mmol/L (8-16); Aspartate Amino Transferase 29 U/L (17-59); Bilirubin,Total 1.6 mg/dL (0.2-1.3); Blood Urea Nitrogen 28 mg/dL (9-20); Calcium 8.4 mg/dL (8.4-10.2); Carbon Dioxide 21 mmol/L (22-30); Chloride 104 mmol/L (98-107); Estimated CRCL calculation 41 ml/min; Estimated Glomerular Filt Rate 48; Glucose 128 mg/dL (65-110); Potassium 4.3 mmol/L (3.4-5.0); Sodium 133 mmol/L (137-145)
[2022-12-21 18:25] LABS: Phosphorus 3.8 mg/dL (2.5-4.5)
[2022-12-21 18:36] LABS: Troponin I < 0.012 ng/mL (0.000-0.034)
--- NOTE | 2022-12-21 19:21 | PC.NURSE ---
Attempting to collect respiratory pathogen panel. Spoke with main lab, respiratory, and phlebotomy. Unable to locate collection information regarding way to obtain specimen and send for testing. Report given to oncoming shift. Will continue to follow up.
--- NOTE | 2022-12-21 19:57 | PC.NURSE ---
Daughter in law Judy reports patient was seen at [facility] in September where he was prescribed po Amiodarone. Pt began feeling strange 2 days after starting medication. Approximately 4 days after taking medication patient was found in room by Judy lethargic and incoherent. It was decided with pack press operator, Dr. Aguirre with [facility], that patient would stop taking medication as it may have been the culprit. Judy reports that the symptoms pt experienced tonight were similar to the symptoms he had with previous episode.
[2022-12-21] MEDS: DEXTROMETHORPHAN POLISTIREX 60 MG/10 ML SYRINGE PO (20:53)
[2022-12-21] MEDS: ROSUVASTATIN 5 MG TABLET PO (20:53)
[2022-12-21] MEDS: TAMSULOSIN HCL 0.4 MG CAPSULE PO (20:54)
[2022-12-22] VITALS (25 sets, daily range): BP systolic 103–115; BP diastolic 69–94; PULSE 61–141; RESP 16–22; TEMP 36.1–36.6; O2SAT 92–98
[2022-12-22] MEDS: dilTIAZem HCl INJ 25 MG/5 ML VIAL 5 MG IV PUSH (04:01)
[2022-12-22 04:38] LABS: INR 2.9; Prothrombin Time 32.4 Seconds (11.1-14.7)
[2022-12-22 04:54] LABS: Anion Gap 7 mmol/L (8-16); Blood Urea Nitrogen 29 mg/dL (9-20); Calcium 8.2 mg/dL (8.4-10.2); Carbon Dioxide 22 mmol/L (22-30); Chloride 105 mmol/L (98-107); Estimated CRCL calculation 41 ml/min; Estimated Glomerular Filt Rate 48; Glucose 93 mg/dL (65-110); Potassium 3.9 mmol/L (3.4-5.0); Sodium 134 mmol/L (137-145)
--- NOTE | 2022-12-22 09:34 | PM.PNCARD ---
Progress Note: A&P Assessment and Plan (1) Atrial fibrillation with rapid ventricular response: Code(s): I48.91 - Unspecified atrial fibrillation Status: Acute Assessment and Plan: Diltiazem discontinued yesterday by hospitalist because of vasovagal episode with significant coughing. His EF was 30-35% by echo yesterday, so diltiazem not the best choice for him anyhow. I had a very lengthy discussion with the patient and family members at the bedside regarding limited choices of medications for him because of his cardiomyopathy and reported history of allergies to amiodarone and carvedilol. Patient states that he became ?jittery? with amiodarone and also experienced weakness and was instructed by his primary care doctor to discontinue amiodarone. He adamantly denies any significant, life-threatening side effects of amiodarone including difficulty breathing, mouth or facial swelling. Discussed that at this point amiodarone would probably be the best choice to trying control his heart rate. Patient and family agree that side effects experienced with amiodarone very minimal and may be 90 minutes related to amiodarone therefore, benefit of amiodarone outweighs risk. Will start amiodarone bolus and drip per protocol. In terms of documented allergy to carvedilol, patient also denies any type of serious life-threatening reaction to this but does not specifically remember the reaction. Therefore, if need be could probably use metoprolol for rate control as well. He has been on warfarin for anticoagulation for many years but I discussed shifting to Eliquis. He is agreeable to this. Will discontinue warfarin and shift him to Eliquis. 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 Probably related atrial fibrillation rapid ventricular response and systolic/diastolic heart failure. We will start furosemide 40 mg IV x1 now and daily. Low-salt diet. Intake and output and daily weights. Summary 1. Technically difficult study. 2. Left ventricular chamber dimension is normal. 3. Left ventricular systolic function is moderately reduced, estimated at 30-35%. Of note, patient is tachycardic at the time of this study. 4. Left atrial chamber dimension is moderately enlarged. 5. Right atrial chamber dimension is moderately enlarged. 6. There is severe aortic valve calcification. The aortic valve mean gradient on this study is 5mmHg with a normal JAMAR. However, the aortic valve was not well assessed on this study, and given the severe calcifications, recommend a follow-up study or consider WENDY for better assessment of the aortic valve if concern for significant aortic stenosis. 7. There is moderate mitral valve regurgitation. 8. There is moderate to severe tricuspid valve regurgitation. 9. Pulmonary hypertension. Estimated pulmonary arterial systolic pressure is 50 mmHg. 10. There is trivial pericardial effusion. (5) Left bundle branch block: Code(s): I44.7 - Left bundle-branch block, unspecified Status: Acute (6) Pacemaker: Code(s): Z95.0 - Presence of cardiac pacemaker Status: Acute Assessment and Plan: Biotronik device. Interrogation ordered Subjective Date/time seen: 12/22/22 09:34 Interval history: Cardiology follow-up for atrial fibrillation, cardiomyopathy Date of service 12/22/2022: Feeling okay today but complaining of a persistent cough. He denies any chest pain, palpitations, shortness of breath. On telemetry, heart rate remains persistently elevated ge
[2022-12-22] MEDS: FUROSEMIDE INJ 40 MG/4 ML VIAL IV PUSH (09:36)
[2022-12-22] MEDS: CHOLECALCIFEROL 1,000 UNITS TABLET 1000 UNITS PO ×2 (09:37→16:54)
[2022-12-22] MEDS: DIGOXIN TAB 125 MCG TABLET PO (09:37)
[2022-12-22] MEDS: AMIODARONE 150 MG/D5W 100 ML 150 MG/100 ML BAG 600 MG IV CONT ×2 (11:52→18:01)
[2022-12-22] MEDS: AMIODARONE 360 MG/D5W 200 ML 360 MG/200 ML BAG 33.33 MG IV CONT (12:08)
--- NOTE | 2022-12-22 12:50 | PM.IMPN ---
Progress Note: A&P Assessment and Plan (1) CHF (congestive heart failure): Code(s): I50.9 - Heart failure, unspecified Status: Acute (2) Chronic anticoagulation: Code(s): Z79.01 - [facility] (current) use of anticoagulants Status: Acute (3) Atrial fibrillation with rapid ventricular response: Code(s): I48.91 - Unspecified atrial fibrillation Status: Acute (4) Pacemaker: Code(s): Z95.0 - Presence of cardiac pacemaker Status: Acute Plan 82M w/ PMH IRIS on CPAP, HLD, BPH, a fib, PPM, on coumadin presents with progressive SOB 1) a fib w/ RVR - failed diltiazem. cardiology consulted. currently being trialed on amiodarone, was also given digoxin - cont monitoring lytes - cont coumadin 2) HF - pending echo - s/p lasix x1 - cont cardiac diet, I/O's daily weights and fluid restrition - cardiology to manage 3) acute hypoxic respiratory failure - flash pulmonary edema. treat a fib Diet:? Heart healthy, saline lock IV GI Prophylaxis:? Not currently indicated DVT Prophylaxis:? On warfarin, SCDs Lines: pIV Code Status: DNR Subjective Date/time seen: 12/22/22 12:50 Interval history: NAOE. pt feels same as yesterday, no cp no shortness of breath. Review of Systems Cardiovascular: Cardiovascular: Denies chest pain Respiratory: Respiratory: Denies cough Gastrointestinal: Gastrointestinal: Denies abdominal pain and Denies vomiting Exam HENMT: Mouth: Yes moist mucous membranes Cardio: Rate: tachycardic Rhythm: abnormal rhythm GI: Inspection: non-distended Auscultation: normal bowel sounds Extrem: Right upper extremity: no edema Objective Data Vital Signs Vital Signs: Vital Signs - 24 hr 12/21/22 14:03 12/21/22 16:00 12/21/22 17:33 Temperature Pulse Rate 92 84 72 Respiratory Rate 20 20 Blood Pressure 102/67 Pulse Oximetry 92 Oxygen Delivery Oxygen Flow Rate Fraction of Inspired Oxygen 12/21/22 17:48 12/21/22 14:00 12/21/22 16:00 Temperature Pulse Rate 88 128 H 130 H Respiratory Rate 20 Blood Pressure Pulse Oximetry Oxygen Delivery Oxygen Flow Rate Fraction of Inspired Oxygen 12/21/22 18:00 12/21/22 16:00 12/21/22 20:00 Temperature 97.2 F L Pulse Rate 90 124 H Respiratory Rate 20 Blood Pressure 103/82 Pulse Oximetry 92 95 Oxygen Delivery Nasal Cannula Oxygen Flow Rate 1 Fraction of Inspired Oxygen 92 12/21/22 21:27 12/21/22 20:00 12/21/22 20:00 Temperature Pulse Rate 98 117 H Respiratory Rate Blood Pressure Pulse Oximetry 93 94 Oxygen Delivery Nasal Cannula Nasal Cannula Oxygen Flow Rate 1 2 Fraction of Inspired Oxygen 24 12/21/22 22:00 12/21/22 23:44 12/21/22 23:49 Temperature 97.7 F Pulse Rate 96 109 H 94 Respiratory Rate 22 H Blood Pressure 98/78 L Pulse Oximetry 95 94 Oxygen Delivery Nasal Cannula Oxygen Flow Rate 2 Fraction of Inspired Oxygen 12/22/22 00:00 12/22/22 01:47 12/22/22 03:13 Temperature 97.6 F Pulse Rate 101 H 128 H 61 Respiratory Rate 22 H Blood Pressure 106/73 Pulse Oximetry 94 Oxygen Delivery Oxygen Flow Rate Fraction of Inspired Oxygen 12/22/22 03:39 12/22/22 04:00 12/22/22 05:50 Temperature Pulse Rate 122 H 122 H 119 H Respiratory Rate Blood Pressure Pulse Oximetry 94 Oxygen Delivery Nasal Cannula Oxygen Flow Rate 2 Fraction of Inspired Oxygen 12/22/22 08:00 12/22/22 09:37 12/22/22 10:16 Temperature 97.3 F L Pulse Rate 80 124 H Respiratory Rate 16 Blood Pressure 114/94 H Pulse Oximetry 95 95 Oxygen Delivery Nasal Cannula Oxygen Flow Rate 2 Fraction of Inspired Oxygen 12/22/22 11:52 12/22/22 12:08 12/22/22 12:00 Temperature 97.6 F Pulse Rate 141 H 128 H 88 Respiratory Rate 20 Blood Pressure 112/78 109/81 112/78 Pulse Oximetry 97 Oxygen Delivery Oxygen Flow Rate Fraction of Inspired Oxygen Intake/Output In
[2022-12-22] MEDS: IPRATROPIUM BR 0.02% INH SOLN 0.5 MG/2.5 ML VIAL INHALATION ×2 (15:07→19:58)
[2022-12-22] MEDS: WARFARIN (*PBKC) 5 MG TABLET PO (16:54)
[2022-12-22] MEDS: AMIODARONE 360 MG/D5W 200 ML 360 MG/200 ML BAG 16.67 MG IV CONT (18:15)
[2022-12-22] MEDS: TAMSULOSIN HCL 0.4 MG CAPSULE PO (20:25)
[2022-12-22] MEDS: ROSUVASTATIN 5 MG TABLET PO (20:25)
[2022-12-23] VITALS (32 sets, daily range): BP systolic 96–123; BP diastolic 64–97; PULSE 70–141; RESP 14–24; TEMP 36.4–36.7; O2SAT 92–99
[2022-12-23] MEDS: IPRATROPIUM BR 0.02% INH SOLN 0.5 MG/2.5 ML VIAL INHALATION (01:42)
[2022-12-23 05:10] LABS: Basophils Percent Auto 0.5 % (0.2-1.2); Eosinophils Absolute Auto 0.1 K/mm3 (0-0.3); Hemoglobin 12.2 g/dL (14.0-18.0); Immature Granulocyte Absolute 0.03 K/mm3 (0.00-0.031); Immature Granulocyte Percent A 0.5 % (0-0.5); Immature Platelet Fraction Pct 5.1 % (0.9-11.2); Lymphocytes Absolute Auto 0.96 K/mm3 (0.9-3.2); Mean Corpuscular HGB Conc 32.1 g/dl (32-36); Mean Corpuscular Hemoglobin 31.4 pg (26-34); Mean Corpuscular Volume 97.9 fl (80-100); Mean Platelet Volume 10.7 fl (7.4-10.4); Monocytes Absolute Auto 0.6 K/mm3 (0.1-0.6); Monocytes Percent Auto 9.2 % (2.6-8.5); Neutrophils Absolute Auto 4.7 K/mm3 (1.3-6.7); Neutrophils Percent Auto 72.8 % (45.5-73.1); Platelet Count Result 140 k/mm3 (150-375); Red Blood Count 3.88 M/mm3 (4.6-6.20); Red Cell Distribution Width 14.1 % (11.5-14.5); White Blood Count 6.4 K/mm3 (4.5-10.0)
[2022-12-23 05:15] LABS: Anion Gap 3 mmol/L (8-16); Blood Urea Nitrogen 28 mg/dL (9-20); Calcium 7.8 mg/dL (8.4-10.2); Carbon Dioxide 27 mmol/L (22-30); Chloride 104 mmol/L (98-107); Estimated CRCL calculation 39 ml/min; Estimated Glomerular Filt Rate 45; Glucose 92 mg/dL (65-110); Magnesium 1.9 mg/dL (1.6-2.3); Potassium 3.5 mmol/L (3.4-5.0); Sodium 134 mmol/L (137-145)
[2022-12-23 05:18] LABS: INR 2.9; Prothrombin Time 32.9 Seconds (11.1-14.7)
[2022-12-23] MEDS: AMIODARONE 360 MG/D5W 200 ML 360 MG/200 ML BAG 16.67 MG IV CONT ×2 (05:21→14:41)
--- NOTE | 2022-12-23 09:59 | WPDCARDVER ---
Cardioversion Cardioversion Date of procedure: 12/23/22 Description of procedure: DATE OF PROCEDURE: 12/23/2022 INDICATION FOR PROCEDURE: Atrial fibrillation with RVR, difficult to control heart rate, hypotension with rate-controlling agents. Benefits, risks and alternatives discussed with the patient. His family including his son and [id number] were present in the room at the time of consent. Patient has previously been on anticoagulation with warfarin. As per patient, his INR has been therapeutic range and he has taken warfarin on consistent basis for at least last 1 month. In light of this, nenita was not deemed to be necessary prior to cardioversion. PROCEDURES PERFORMED: 1. Synchronized DC cardioversion x3 with failure to restore sinus rhythm 2. Moderate sedation -CPT 35041 SEDATION: Propofol 60 mg IV in 3 divided doses; start time 0935 am, stop time 0953 am; total [id number] time 18 minutes; Lawson RN was trained observer for the moderate sedation. PROCEDURE: Informed consent was taken prior to the procedure. DC cardioversion was performed with conscious sedation with IV propofol. Transcutaneous pads were placed in the right parasternal and axillary positions. DC cardioversion x2 restored sinus rhythm briefly, then patient went back into AFib with RVR. After this, pad position was changed with new pads to right parasternal and left paravertebral positions. DC cardioversion was again performed. Patient went into sinus rhythm briefly, then reverted back to atrial fibrillation with RVR. Patient tolerated procedure well without any immediate procedure related complications. Conclusions: Synchronized DC cardioversionx 3 with failure to restore sinus rhythm. RECOMMENDATIONS: Continue iV amiodarone. Patient will be initiated on esmolol to help control heart rate with close monitoring of blood pressure and heart rate. The patient's heart rates difficult to control, then would recommend electrophysiology evaluation as an outpatient for consideration for AV paige ablation. Patient's warfarin is being switched to apixaban once his INR is less than 2. Continue to monitor on telemetry. The patient's family updated.
--- NOTE | 2022-12-23 10:02 | PC.NURSE ---
Elective cardioversion in ICU-1. See Dr. Dey note for details. Shock x3 all [address] Rashid consulted Dr. Mayer for transfer to ICU for Esmolol gtt.
[2022-12-23] MEDS: PROPOFOL IV EMULSION 200 MG/20 ML VIAL 60 MG IV PUSH (10:04)
--- NOTE | 2022-12-23 10:16 | WPDCNINT ---
Assessment and Plan Assessment and plan (1) Atrial fibrillation with rapid ventricular response: Code(s): I48.91 - Unspecified atrial fibrillation Status: Acute Assessment and Plan: Symptomatic AFib with RVR S/P failed DC cardioversion x 3 Currently on amiodarone infusion. Changed to 1 milligram/minute. Will give additional 150 mg bolus Cardiology is planning to start esmolol infusion Tc-Synephrine drip in case patient's blood pressure drops although currently stable (2) CHF (congestive heart failure): Code(s): I50.9 - Heart failure, unspecified Status: Acute Assessment and Plan: Does not appear to be in significant volume overload Hold Lasix for now and will see how patient tolerates esmolol infusion (3) Chronic anticoagulation: Code(s): Z79.01 - [facility] (current) use of anticoagulants Status: Acute Assessment and Plan: Patient currently on warfarin. Cardiology plans to switch to Eliquis once INR is 2 (4) Dysphagia: Code(s): R13.10 - Dysphagia, unspecified Status: Acute Assessment and Plan: Will check CT neck once patient is hemodynamically stable Plan DVT prophylaxis -warfarin Nutrition -heart healthy diet Code Status - Full Code Case discussed with Cardiology Total Critical Care Time - 30 minutes Due to a high probability of clinically significant, life threatening deterioration, the patient required my highest level of preparedness to intervene emergently and I personally spent this critical care time directly and personally managing the patient. This critical care time included obtaining a history; examining the patient; pulse oximetry; ordering and review of studies; arranging urgent treatment with development of a management plan; evaluation of patient's response to treatment; frequent reassessment; and discussions with other providers. It was exclusive of separately billable procedures and treating other patients and teaching time. Please see Assessment and Plan section and the rest of the note for further information on patient assessment and treatment Autocad Operator Consult Note Consult date: 12/23/22 Reason for consult: AFib with RVR HPI: Socrates Durand is a 82 year old male with past medical history of AFib on anticoagulation, hyperlipidemia BPH IRIS was admitted on 12/20 with chief complaint of shortness of breath worsening over last few months. Patient was found to be in AFib with RVR and was started on diltiazem infusion. Cardiology was consulted. While PCR was negative. His BNP was 5070. In the hospital echocardiogram was done and his EF was 30-35% with severe aortic valve calcification. Patient also had moderate MR and moderate to severe TR pulmonary hypertension. Part it was poorly controlled has patient was started on amiodarone infusion. He was also given digoxin. Today patient was transferred to ICU for DC cardioversion attempt which was unsuccessful. Patient was DC cardioverted x3 without any success. Patient now awake after conscious sedation and denies any complaints. He states that he came to the hospital because atrial fibrillation which makes him weak but not in control. Denies any or shortness of breath at this time. Review of system was positive for intermittent cough is dry. He also states that he feels difficulty with swallowing whenever he turns his head towards left. He denies any trouble swallowing food feels abnormal and feels that there is something in his throat that is making it difficult for him to swallow. All other systems were reviewed and were negative Review of Systems Review of Systems: All systems reviewed & are unremarkable except as noted in HPI and below (HPI) [facility] Past Medical History Medical History Atrial fibrillation BPH (benign prostatic hyperplasia) HLD (hyperlipidemia) [place] (hard of hearing) IRIS on CPAP Surgical History Surg
[2022-12-23] MEDS: AMIODARONE 150 MG/D5W 100 ML 150 MG/100 ML BAG 600 MG IV CONT (11:20)
[2022-12-23] MEDS: LIDOCAINE HCL 1% PF INJ 5 ML VIAL INFILTRATE (11:45)
[2022-12-23] MEDS: ESMOLOL HCL 2,500 MG/250 ML 2,500 MG/250 ML BAG 31.11 MG IV CONT ×2 (13:08→21:05)
[2022-12-23] MEDS: CHOLECALCIFEROL 1,000 UNITS TABLET 1000 UNITS PO ×2 (13:10→16:46)
[2022-12-23] MEDS: CENTRAL LINE FLUSH 10 ML IV PUSH ×2 (13:11→21:05)
--- NOTE | 2022-12-23 13:28 | PM.IMPN ---
Progress Note: A&P Assessment and Plan (1) Dysphagia: Code(s): R13.10 - Dysphagia, unspecified Status: Acute (2) Pacemaker: Code(s): Z95.0 - Presence of cardiac pacemaker Status: Acute (3) CHF (congestive heart failure): Code(s): I50.9 - Heart failure, unspecified Status: Acute (4) Chronic anticoagulation: Code(s): Z79.01 - [facility] (current) use of anticoagulants Status: Acute (5) Atrial fibrillation with rapid ventricular response: Code(s): I48.91 - Unspecified atrial fibrillation Status: Acute Plan 82M w/ PMH IRIS on CPAP, HLD, BPH, a fib, PPM, on coumadin presents with progressive SOB 1) a fib w/ RVR - failed diltiazem w/ metoprolol. 12/23 failed dc cardioversion x3. now on amiodarone and esmolol. will follow with cardiology and critical care - cont monitoring lytes - coumadin dc'ed. to start eliquis when INR below 2 2) HF, unspecified - 12/23 lasix stopped. pt not significantly volue overloaded - cont cardiac diet, I/O's daily weights and fluid restriction - cardiology to manage 3) acute hypoxic respiratory failure - cont weaning o2 as tolerated to go for ct neck for complaints of dysphagia Diet:? Heart healthy, saline lock IV GI Prophylaxis:? Not currently indicated DVT Prophylaxis:? SCDs Lines: pIV Code Status: DNR More than 25 minutes spent on chart review, patient interaction and assessment and plan. Subjective Date/time seen: 12/23/22 13:28 Interval history: pt transferred to ICU this AM with cardiology and critical care for refractory a fib. s/p DC cardioversion x 3 w/o success. pt feels same as usual Review of Systems Review of Systems: All systems reviewed & are unremarkable except as noted in HPI and below (HPI) Cardiovascular: Cardiovascular: Denies chest pain and Denies dyspnea Respiratory: Respiratory: Denies cough and Denies dyspnea Gastrointestinal: Gastrointestinal: Denies abdominal pain and Denies vomiting Exam Narrative: General: Pt is alert awake and in NAD Lungs/Chest: Trachea central Clear BS B/L, No crackles or wheezing. Cardiac: RRR. Normal S1 S2. No murmurs Circulation: Pedal pulses are intact and symmetrical. Abdomen: Normal bowel sounds.. Soft. NT. ND. Extremities: No clubbing, cyanosis Warm. Minimal bilateral pitting edema : Gtz in place Neurologic: Follows commands. Moves all 4 extremities PERRL Skin: No Rash HEENT: No abnormality seen oral exam Const: General: comfortable, no acute distress, alert and Physically active Other: Mild distress with coughing, intermittent. HENMT: Mouth: Yes moist mucous membranes Eyes: General: appearance normal, both eyes and all related structures Sclera: sclerae normal Pupils: Equal, round and reactive pupils present Resp: Effort & Inspection: normal respiratory effort Auscultation: crackles (mild bibasilar crackles) Other: Left lower lung base. No wheezing. Cardio: Rate: regular rate and tachycardic Rhythm: regular rhythm and abnormal rhythm Heart sounds: S1 normal heart sound present and S2 normal heart sound present Other: Irregular rate and rhythm. Difficult to assess S1 and S2 due to tachycardia. GI: Inspection: non-distended Auscultation: normal bowel sounds Other: No hepatomegaly or splenomegaly Skin: General skin exam: normal color and no rashes or lesions noted Wounds: no wounds Neuro: Cranial nerves: Yes Equal, round and reactive pupils present Speech: normal speech Sensory Exam: normal sensation Other: A/Ox4 Extrem: Right upper extremity: no edema Other: Compression stockings in place, no gross peripheral edema Psych: Mental Status: mental status grossly normal Affect: Anxious affect present Other: Good insight and judgment, expressed frustration with cough. Objective Data Vital Signs Vital Signs: Vital Signs - 24 hr 12/22/22 15:07 12/22/22 15:15 12/22/22 16:00 Temper
--- NOTE | 2022-12-23 13:44 | PC.NURSE ---
This patient, Socrates Durand, was transferred to ICU 1 on 12/23/22 at 0915. Personal belongings sent with patient. Report given to Shawna Oquendo RN. Appropriate documentation sent with patient.
--- NOTE | 2022-12-23 14:49 | ECG_ITS ---
Measurements Intervals [place] Rate: 126 P: DE: 0 QRS: -8 QRSD: 145 T: 154 QT: 352 QTc: 511 Interpretive Statements ATRIAL FIBRILLATION WITH RAPID VENTRICULAR RESPONSE LEFT BUNDLE BRANCH BLOCK Electronically Signed On 12-24-2022 12:52:40 CDT by Bradly Rashid M.D.
[2022-12-23] MEDS: TAMSULOSIN HCL 0.4 MG CAPSULE PO (20:30)
[2022-12-23] MEDS: ROSUVASTATIN 5 MG TABLET PO (20:30)
[2022-12-23] MEDS: AMIODARONE 360 MG/D5W 200 ML 360 MG/200 ML BAG 33.33 MG IV CONT (23:30)
[2022-12-24] VITALS (25 sets, daily range): BP systolic 102–126; BP diastolic 67–93; PULSE 63–87; RESP 10–23; TEMP 35.6–36.7; O2SAT 93–100
[2022-12-24] MEDS: ESMOLOL HCL 2,500 MG/250 ML 2,500 MG/250 ML BAG 31.11 MG IV CONT ×3 (04:49→21:08)
[2022-12-24] MEDS: CENTRAL LINE FLUSH 10 ML IV PUSH ×3 (04:49→21:10)
[2022-12-24 04:53] LABS: Hematocrit 36.5 % (42.0-52.0); Hemoglobin 12.3 g/dL (14.0-18.0); Mean Corpuscular HGB Conc 33.7 g/dl (32-36); Mean Corpuscular Hemoglobin 32.2 pg (26-34); Mean Corpuscular Volume 95.5 fl (80-100); Mean Platelet Volume 10.2 fl (7.4-10.4); Platelet Count Result 145 k/mm3 (150-375); Red Blood Count 3.82 M/mm3 (4.6-6.20); Red Cell Distribution Width 13.9 % (11.5-14.5); White Blood Count 7.3 K/mm3 (4.5-10.0)
[2022-12-24 05:04] LABS: INR 3.2
[2022-12-24 05:17] LABS: Alanine Aminotransferase 23 U/L (6-50); Alkaline Phosphatase 64 U/L (38-126); Anion Gap 5 mmol/L (8-16); Aspartate Amino Transferase 31 U/L (17-59); Bilirubin,Total 0.8 mg/dL (0.2-1.3); Blood Urea Nitrogen 21 mg/dL (9-20); Carbon Dioxide 27 mmol/L (22-30); Chloride 105 mmol/L (98-107); Estimated CRCL calculation 49 ml/min; Estimated Glomerular Filt Rate 58; Glucose 91 mg/dL (65-110); Potassium 3.8 mmol/L (3.4-5.0); Sodium 137 mmol/L (137-145)
[2022-12-24] MEDS: AMIODARONE 360 MG/D5W 200 ML 360 MG/200 ML BAG 33.33 MG IV CONT (05:21)
[2022-12-24] MEDS: CHOLECALCIFEROL 1,000 UNITS TABLET 1000 UNITS PO ×2 (08:31→16:56)
[2022-12-24] MEDS: POTASSIUM CHLORIDE 20 MEQ ER TABLET 40 MEQ PO (08:31)
--- NOTE | 2022-12-24 10:40 | PM.PNCARD ---
Progress Note: A&P Assessment and Plan (1) Atrial fibrillation with rapid ventricular response: Code(s): I48.91 - Unspecified atrial fibrillation Status: Acute Assessment and Plan: Patient was transferred to the ICU yesterday due to difficulty to control heart rate and shortness of breath. He underwent DC cardioversion x3 with transient yazidi of sinus rhythm followed by recurrent atrial fibrillation with RVR. He was continued on amiodarone drip and esmolol was added. Overnight, patient converted to sinus rhythm. Today, he reports cough with congestion. Denies chest pain or shortness of breath at rest. No palpitations. On telemetry, he is in sinus rhythm. - continue esmolol at low dose Of 50 micrograms/kg per minute for now. -May decrease amiodarone dose to 0.5 milligrams/minute, staff informed. May switch to p.o. amiodarone tomorrow. - warfarin on hold, apixaban to be initiated when INR less than 2.0. Check INR. 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 Probably related atrial fibrillation rapid ventricular response and systolic/diastolic heart failure. Diuresis as needed. Low-salt diet. Intake and output and daily weights. (5) Left bundle branch block: Code(s): I44.7 - Left bundle-branch block, unspecified Status: Acute (6) Pacemaker: Code(s): Z95.0 - Presence of cardiac pacemaker Status: Acute Assessment and Plan: Biotronik device. Interrogation ordered Subjective Date/time seen: 12/24/22 10:40 Interval history: Date of service: 12/24/2022 Interval history: Patient was transferred to the ICU yesterday due to difficulty to control heart rate and shortness of breath. He underwent DC cardioversion x3 with transient yazidi of sinus rhythm followed by recurrent atrial fibrillation with RVR. He was continued on amiodarone drip and esmolol was added. Overnight, patient converted to sinus rhythm. Today, he reports cough with congestion. Denies chest pain or shortness of breath at rest. No palpitations. On telemetry, he is in sinus rhythm. Exam Narrative: PHYSICAL EXAMINATION: GENERAL: Obese, Alert, oriented, no acute distress MENTAL STATUS: anxious EYES: Extraocular movements intact, no pallor EARS: External ears appear normal, hearing grossly normal NOSE: Normal and patent, no discharge MOUTH: Mucous membranes moist, tongue normal NECK: Supple CHEST: coarse breath sounds HEART: Normal rate, regular rhythm at present ABDOMEN: Soft, nontender NEUROLOGICAL: Alert, oriented, normal speech, no gross motor deficits MUSCULOSKELETAL: No major deformity, no amputation EXTREMITIES: pedal edema, no clubbing, no cyanosis SKIN: no rash on the exposed area, no cyanosis PSYCHIATRIC: anxious Objective Data Vital Signs Vital Signs: Vital Signs - 24 hr 12/23/22 11:00 12/23/22 11:20 12/23/22 12:00 Temperature 36.6 C 36.6 C Pulse Rate 134 H 109 H Pulse Rate [Monitor] 137 H Respiratory Rate 18 19 Blood Pressure 107/82 104/86 Blood Pressure [Right Arm] 101/79 Pulse Oximetry 97 97 Oxygen Delivery Nasal Cannula Oxygen Flow Rate 5 12/23/22 13:08 12/23/22 14:41 12/23/22 12:00 Temperature Pulse Rate 100 81 94 Pulse Rate [Monitor] Respiratory Rate Blood Pressure 118/97 H 120/86 Blood Pressure [Right Arm] Pulse Oximetry Oxygen Delivery Oxygen Flow Rate 12/23/22 14:00 12/23/22 12:00 12/23/22 16:05 Temperature Pulse Rate 84 94 78 Pulse Rate [Monitor] Respiratory Rate 17 Blood Pressure
--- NOTE | 2022-12-24 11:28 | WPDINTPN ---
Progress Note: A&P Assessment and Plan (1) Atrial fibrillation with rapid ventricular response: Code(s): I48.91 - Unspecified atrial fibrillation Status: Acute Assessment and Plan: Symptomatic AFib with RVR, difficult to control. Rate could not be controlled with rate limiting medications, amiodarone. -12/23: S/P failed DC cardioversion x 3 -12/23: Started on esmolol infusion, patient converted to sinus rhythm at 2:00 a.m. on 12/24 -continue amiodarone infusion, Changed to 0.5 mg/min this morning with Cardiology -discussed with Cardiology, will continue esmolol infusion for today. 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 Cardiology plans to switch to Eliquis once INR is < 2.0 (4) Dysphagia: Code(s): R13.10 - Dysphagia, unspecified Status: Acute Assessment and Plan: Patient does complain a cough, states he has bouts of cough. He also complaining of some dysphagia/swallowing difficulty/hears a snap when he turns his head to the left. 12/23 CT soft tissue neck and chest without contrast: IMPRESSION: 1. Small to moderate-sized bilateral posterior layering pleural effusions with dependent compressive atelectasis. 2. No etiology for reported dysphagia. No abnormal masses or pathologically enlarged lymphadenopathy identified in the and neck or chest. -will have GI evaluate the patient on 12/25/2022 Plan DVT prophylaxis -warfarin on hold, INR is therapeutic Nutrition -heart healthy diet Code Status - Full Code Case discussed with Cardiology Total Critical Care Time - 34 minutes Due to a high probability of clinically significant, life threatening deterioration, the patient required my highest level of preparedness to intervene emergently and I personally spent this critical care time directly and personally managing the patient. This critical care time included obtaining a history; examining the patient; pulse oximetry; ordering and review of studies; arranging urgent treatment with development of a management plan; evaluation of patient's response to treatment; frequent reassessment; and discussions with other providers. It was exclusive of separately billable procedures and treating other patients and teaching time. Please see Assessment and Plan section and the rest of the note for further information on patient assessment and treatment Subjective Date/time seen: 12/24/22 11:28 Interval history: Reason for consult: Difficult control AFib RVR with amiodarone, rate controlling medications, failed DC cardioversion x3 on 12/23, 12/24/2022: Patient seen examined the ICU, is awake, alert, oriented, answers to questions appropriately and follows simple commands in all extremities. Was started on esmolol infusion yesterday, converted to sinus rhythm overnight around 2:00 a.m.. Blood pressures have been stable, urine output has been adequate, afebrile. Denies any chest pain, shortness on breath, abdominal pain, nausea vomiting. Patient does complain a cough, states he has bouts of cough. He also complaining of some dysphagia/swallowing difficulty/hears a snap when he turns his head to the left. Review of Systems Review of Systems: All systems reviewed & are unremarkable except as noted in HPI and below (HPI) Exam Narrative: General: Pt is alert awake and in NAD Lungs/Chest: Trachea central Clear BS B/L, No crackles or wheezing. Cardiac: Rate and rhythm, S1-S2 normal, with intermittently paced rhythm. No murmurs Circulation: Pedal pulses are intact and symmetrical. Abdomen: Normal bowel sounds.. Soft. NT. ND. Extremitie
[2022-12-24 11:57] LABS: INR 3.2; Prothrombin Time 35.4 Seconds (11.1-14.7)
[2022-12-24] MEDS: AMIODARONE 360 MG/D5W 200 ML 360 MG/200 ML BAG 16.67 MG IV CONT (13:03)
--- NOTE | 2022-12-24 13:04 | PM.IMPN ---
Progress Note: A&P Assessment and Plan (1) Dysphagia: Code(s): R13.10 - Dysphagia, unspecified Status: Acute (2) Pacemaker: Code(s): Z95.0 - Presence of cardiac pacemaker Status: Acute (3) CHF (congestive heart failure): Code(s): I50.9 - Heart failure, unspecified Status: Acute (4) Atrial fibrillation with rapid ventricular response: Code(s): I48.91 - Unspecified atrial fibrillation Status: Acute Plan Plan 82M w/ PMH IRIS on CPAP, HLD, BPH, a fib, PPM, on coumadin presents with progressive SOB 1) a fib w/ RVR - failed diltiazem w/ metoprolol. 12/23 failed dc cardioversion x3. now on amiodarone and esmolol IV. will follow with cardiology and critical care, plan to transition to PO tomorrow. - cont monitoring lytes - coumadin dc'ed. to start eliquis when INR below 2. INR on 12/24 3.2 2) HFrEF - acute decompensation, now resolved. lasix stopped 12/23, EF 30-35% + flash pulmonary edema likely related to a fib w/ RVR - cont cardiac diet, I/O's daily weights and fluid restriction 3) acute hypoxic respiratory failure - resolved. 2/2 to a fib w/ RVR and flash pulmonary edema 4) dysphagia - complains of snapping sound when he turns his head to the left and swallows. CT neck w/ contrast unrevealing. GI consulted. Diet:? Heart healthy, saline lock IV GI Prophylaxis:? Not currently indicated DVT Prophylaxis:? SCDs, start eliquis when INR below 3.2 Lines: pIV Code Status: DNR Mr. Durand is a pleasant and reasonable man. His on hospice while he was admitted, on 12/21. The is on 12/28. He hopes to be out of the hospital by 12/27 to get ready for the . Seeing his a fib is now controlled, I let him know we would more than likely facilitate that, and I expressed my condolences. Subjective Date/time seen: 12/24/22 13:04 Interval history: NAOE. pt feels better because he wore his CPAP two nights in a row. he denies chest pain or SOB, just that persistent snapping noise when he turns his head to the left and swallow. he is sitting up eating in bed, no n/v/d. Review of Systems Review of Systems: All systems reviewed & are unremarkable except as noted in HPI and below Exam Const: General: comfortable Resp: Effort & Inspection: normal respiratory effort Cardio: Rate: regular rate Rhythm: regular rhythm GI: GI Palp: Yes Soft to palpation Extrem: General: no edema Objective Data Vital Signs Vital Signs: Vital Signs - 24 hr 12/23/22 13:08 12/23/22 14:41 12/23/22 14:00 Temperature Pulse Rate 100 81 84 Respiratory Rate Blood Pressure 118/97 H 120/86 Pulse Oximetry Oxygen Delivery 12/23/22 16:05 12/23/22 16:05 12/23/22 16:00 Temperature 97.8 F Pulse Rate 78 78 71 Respiratory Rate 19 21 H Blood Pressure 123/89 Pulse Oximetry 98 97 Oxygen Delivery Room Air 12/23/22 18:00 12/23/22 18:00 12/23/22 17:00 Temperature Pulse Rate 85 85 81 Respiratory Rate 22 H Blood Pressure 96/66 L 111/80 Pulse Oximetry 93 Oxygen Delivery 12/23/22 19:00 12/23/22 14:00 12/23/22 21:05 Temperature Pulse Rate 77 101 H 74 Respiratory Rate 20 Blood Pressure 99/68 L 123/83 109/75 Pulse Oximetry 99 Oxygen Delivery 12/23/22 20:00 12/23/22 20:00 12/23/22 20:00 Temperature 97.7 F Pulse Rate 75 75 Respiratory Rate 15 Blood Pressure 100/64 Pulse Oximetry 94 Oxygen Delivery Room Air 12/23/22 22:00 12/23/22 22:00 12/23/22 22:17 Temperature Pulse Rate 71 71 71 Respiratory Rate 16 Blood Pressure 114/73 114/73 Pulse Oximetry 95 Oxygen Delivery 12/23/22 19:15 12/23/22 22:19 12/23/22 22:58 Temperature Pulse Rate 77 71 70 Respiratory Rate Blood Pressure 100/73 114/73 112/74 Pulse Oximetry Oxygen Delivery 12/23/22 23:30 12/24/22 00:00 12/24/22 00:00 Temperature Pulse Rate 70 69 Respiratory Rate Blood Pressure 112/74 Pulse Oximetry
[2022-12-24] MEDS: TAMSULOSIN HCL 0.4 MG CAPSULE PO (20:16)
[2022-12-24] MEDS: ROSUVASTATIN 5 MG TABLET PO (20:16)
[2022-12-25] VITALS (19 sets, daily range): BP systolic 109–150; BP diastolic 70–102; PULSE 60–117; RESP 12–97; TEMP 36.4–36.7; O2SAT 93–100
--- NOTE | 2022-12-25 | ECHO_ITS ---
Patient Info Name: Socrates Durand Age: 82 years : 1940 Gender: Male Ht: 69 in Wt: 222 lbs BSA: 2.25 m2 HR: 87 bpm BP: 150 / 76 mmHg Heart Rhythm: Sinus Rhythm Technical Quality: Fair Exam Date: 12/25/2022 2:54 PM Exam Location: [facility] Pulmonary Exam Room: ICU1 Patient Status: Inpatient Admit Date: 12/21/2022 Staff Ordering Physician: Sangita Mistry Balloon Pilot: Amanda Mccoy RDCS Attending Provider: Lela Robledo MD Referring Physician: Fidelia VICTORIA; Exam Type: CA echo limited w contrast Study Info Indications - CHF RHYTHM CHANGE EVAL LV FXN Complete two-dimensional, color flow and Doppler transthoracic echocardiogram is performed with contrast to opacify the left ventricle and to improve the deliniation of the left ventricle endocardial borders. Contrast/Agitated Saline Contrast/Ag. Saline: Definity Amount: 2.00 ml Administered By: Amanda Mccoy [facility] Existing IV Access: Yes IV Access Condition: patent with no signs of infiltration Summary 1. Technically difficult study with limited views. Definity contrast administered. 2. Left ventricular chamber dimension is normal. 3. Left ventricular systolic function is lower limits of normal, estimated at 50-55%. 4. There is mildly increased left ventricular wall thickness. 5. Left ventricular septal wall motion is abnormal. 6. The anterior mitral valve leaflet is severely calcified. 7. There is mild mitral valve regurgitation. 8. Mitral valve is not well visualized. 9. There is no aortic valve stenosis. 10. There is trace aortic valve regurgitation. 11. There is mild aortic valve calcification. Left Ventricle Left ventricular chamber dimension is normal. Left ventricular systolic function is lower limits of normal, estimated at 50-55%. There is mildly increased left ventricular wall thickness. Left ventricular septal wall motion is abnormal. Technically difficult study with limited views. Definity contrast administered. Right Ventricle Right ventricular chamber dimension is not well visualized. Left Atria Left atrial chamber dimension is not well visualized. Right Atria Right atrial chamber dimension is not well visualized. Aortic Valve The aortic valve is probable trileaflet. There is no aortic valve stenosis. There is trace aortic valve regurgitation. There is mild aortic valve calcification. Pulmonic Valve The pulmonic valve is not well visualized. Mitral Valve The anterior mitral valve leaflet is severely calcified. There is mild mitral valve regurgitation. Mitral valve is not well visualized. Tricuspid Valve The tricuspid valve leaflets are not well visualized. Pericardium/Pleural The pericardium appears not well visualized. Aorta The aortic root size at the sinus of Valsalva is normal. There is moderate-severe aortic atherosclerosis. Left Ventricular Outflow Tract Name Value Normal LVOT 2D LVOT Diameter 2.1 cm LVOT Doppler LVOT Peak Gradient 7 mmHg LVOT Mean Gradient 4 mmHg LVOT VTI 27 cm LVOT VTI/AV VTI Ratio 1.0
[2022-12-25] MEDS: AMIODARONE 360 MG/D5W 200 ML 360 MG/200 ML BAG 16.67 MG IV CONT (00:59)
[2022-12-25 04:41] LABS: Basophils Percent Auto 0.3 % (0.2-1.2); Eosinophils Absolute Auto 0.2 K/mm3 (0-0.3); Hemoglobin 12.1 g/dL (14.0-18.0); Immature Granulocyte Absolute 0.03 K/mm3 (0.00-0.031); Immature Granulocyte Percent A 0.4 % (0-0.5); Immature Platelet Fraction Pct 4.4 % (0.9-11.2); Lymphocytes Absolute Auto 0.88 K/mm3 (0.9-3.2); Lymphocytes Percent Auto 13.2 % (18.3-44.2); Mean Corpuscular HGB Conc 33.6 g/dl (32-36); Mean Corpuscular Hemoglobin 32.3 pg (26-34); Mean Platelet Volume 10.3 fl (7.4-10.4); Monocytes Absolute Auto 0.6 K/mm3 (0.1-0.6); Neutrophils Percent Auto 74.1 % (45.5-73.1); Platelet Count Result 136 k/mm3 (150-375); Red Blood Count 3.75 M/mm3 (4.6-6.20); Red Cell Distribution Width 13.9 % (11.5-14.5); White Blood Count 6.7 K/mm3 (4.5-10.0)
[2022-12-25 04:52] LABS: Alanine Aminotransferase 20 U/L (6-50); Albumin Level 2.8 g/dL (3.5-5.1); Alkaline Phosphatase 68 U/L (38-126); Anion Gap 3 mmol/L (8-16); Aspartate Amino Transferase 26 U/L (17-59); Bilirubin,Total 0.9 mg/dL (0.2-1.3); Blood Urea Nitrogen 20 mg/dL (9-20); Calcium 7.8 mg/dL (8.4-10.2); Carbon Dioxide 27 mmol/L (22-30); Chloride 106 mmol/L (98-107); Estimated CRCL calculation 52 ml/min; Estimated Glomerular Filt Rate > 60; Glucose 87 mg/dL (65-110); Magnesium 1.9 mg/dL (1.6-2.3); Phosphorus 3.4 mg/dL (2.5-4.5); Potassium 3.9 mmol/L (3.4-5.0); Sodium 136 mmol/L (137-145)
[2022-12-25 04:59] LABS: Prothrombin Time 33.5 Seconds (11.1-14.7)
[2022-12-25] MEDS: ESMOLOL HCL 2,500 MG/250 ML 2,500 MG/250 ML BAG 31.11 MG IV CONT (05:28)
[2022-12-25] MEDS: CENTRAL LINE FLUSH 10 ML IV PUSH ×3 (05:29→20:28)
--- NOTE | 2022-12-25 08:16 | PM.IMPN ---
Progress Note: A&P Assessment and Plan (1) Dysphagia: Code(s): R13.10 - Dysphagia, unspecified Status: Acute (2) Left bundle branch block: Code(s): I44.7 - Left bundle-branch block, unspecified Status: Acute (3) Pacemaker: Code(s): Z95.0 - Presence of cardiac pacemaker Status: Acute (4) CHF (congestive heart failure): Code(s): I50.9 - Heart failure, unspecified Status: Acute (5) Chronic anticoagulation: Code(s): Z79.01 - [facility] (current) use of anticoagulants Status: Acute (6) Nonproductive cough: Code(s): R05.8 - Other specified cough Status: Acute (7) Shortness of breath: Code(s): R06.02 - Shortness of breath Status: Acute (8) Atrial fibrillation with rapid ventricular response: Code(s): I48.91 - Unspecified atrial fibrillation Status: Acute Plan 82M w/ PMH IRIS on CPAP, HLD, BPH, a fib, PPM, on coumadin presents with progressive SOB 1) a fib w/ RVR - failed diltiazem w/ metoprolol. 12/23 failed dc cardioversion x3. now on amiodarone and esmolol IV. will follow with cardiology and critical care, plan to transition to PO tomorrow. - cont monitoring lytes - coumadin dc'ed. to start eliquis when INR below 2. INR on 12/24 3.2 - can be switched to oral BB and oral amio when appropriate with cardiology - needs aggressive Ca repletion. did 1 g of ca gluconate. follow on a daily basis. 2) HFrEF - acute decompensation, now resolved. lasix stopped 12/23, EF 30-35% + flash pulmonary edema likely related to a fib w/ RVR - cont cardiac diet, I/O's daily weights and fluid restriction - defer to cardiology consultation but recommend starting pt on oral BB and KOKO/ARB for systolic CHF. he does not need to be on esmolol drip anymore. - of note, pt also has severe pulmonary htn, likely from S-CHF - pt needs to be on lasix atc, recommend taking it off hold. this is both for systolic chf and to prevent impending R heart failure if his systolic chf is not optimally controlled 3) acute hypoxic respiratory failure - resolved. 2/2 to a fib w/ RVR and flash pulmonary edema 4) dysphagia/dry cough - complains of snapping sound when he turns his head to the left and swallows. CT neck w/ contrast unrevealing. GI consulted. - likely cardiac asthma combined with dependent atelectasis from pleural effusions--> added IS and asked RN to show pt how to use it Diet:? Heart healthy, saline lock IV GI Prophylaxis:? Not currently indicated DVT Prophylaxis:? SCDs, start eliquis when INR below 3.2 Lines: pIV Code Status: DNR Mr. Durand is a pleasant and reasonable man. His on hospice while he was admitted, on 12/21. The is on 12/28. He hopes to be out of the hospital by 12/27 to get ready for the . Seeing his a fib is now controlled, I let him know we would more than likely facilitate that, and I expressed my condolences. Subjective Date/time seen: 12/25/22 08:16 Interval history: pt complaining of a dry cough. Review of Systems Review of Systems: n/a reports yes to feeling dehydrated with a dry tongue and not eating or drinking much. however he was eating breakfast when I entered the room. Exam Narrative: Const:?? General: comfortab le Resp:?? Effort & Inspectio n: normal respirat ory effort Cardio:?? Rate: regular rate ? Rhythm: regular rhythm GI:?? GI Palp: Yes Soft to palpation Extrem:?? General: no edema Objective Data Vital Signs Vital Signs: Vital Signs - 24 hr 12/24/22 08:48 12/24/22 10:00 12/24/22 08:30 Temperature Pulse Rate 71 68 65 Respiratory Rate 18 Blood Pressure 124/86 108/72 124/86 Pulse Oximetry 93 Oxygen Delivery Fraction of Inspired Oxygen 12/24/22 10:00 12/24/22 10:00 10
[2022-12-25] MEDS: CHOLECALCIFEROL 1,000 UNITS TABLET 1000 UNITS PO ×2 (09:07→16:28)
[2022-12-25] MEDS: CALCIUM GLUC 1,000 MG/NS 50 ML 1,000 MG/50 ML BAG 100 MG IVPB (09:07)
--- NOTE | 2022-12-25 09:33 | PM.PNCARD ---
Progress Note: A&P Assessment and Plan (1) Atrial fibrillation with rapid ventricular response: Code(s): I48.91 - Unspecified atrial fibrillation <HENRY Paz - Last Filed: 12/25/22 12:27> Status: Acute <HENRY Paz - Last Filed: 12/25/22 12:27> Assessment and Plan: He underwent DC cardioversion x3 over the weekend with transient temple of sinus rhythm followed by recurrent atrial fibrillation with RVR. He was continued on amiodarone drip and esmolol was added. He converted to sinus rhythm and remains in sinusrhythm this morning. -Discontinue esmolol gtt -Discontinue amiodarone gtt and start p.o. amiodarone today 200mg daily. -warfarin on hold, apixaban to be initiated when INR less than 2.0. Check INR. 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 Probably related atrial fibrillation rapid ventricular response and systolic/diastolic heart failure. Diuresis as needed. Low-salt diet. Intake and output and daily weights. Will order a limited echo to be done now that patient is back in sinus rhythm. Need for KOKO/ARB/ARNI and other standard GDMT to be determined after the results of that study are available. <HENRY Paz - Last Filed: 12/25/22 12:27> (5) Left bundle branch block: Code(s): I44.7 - Left bundle-branch block, unspecified <HENRY Paz - Last Filed: 12/25/22 12:27> Status: Acute <HENRY Paz - Last Filed: 12/25/22 12:27> (6) Pacemaker: Code(s): Z95.0 - Presence of cardiac pacemaker <HENRY Paz - Last Filed: 12/25/22 12:27> Status: Acute <HENRY Paz - Last Filed: 12/25/22 12:27> Assessment and Plan: Biotronik device. Interrogated 12/22. <HENRY Paz - Last Filed: 12/25/22 12:27> Assessment and Plan: ATTENDING ADDENDUM: I agree with the above documentation and plan of care as outlined. <Eric Shepard MD - Last Filed: 12/25/22 15:38> Subjective Date/time seen: 12/25/22 09:33 <HENRY Paz - Last Filed: 12/25/22 12:27> Interval history: Cardiology follow up for atrial fibrillation Remains in sinus rhythm this morning. Feeling well and had no complaints aside from persistent cough. <HENRY Paz - Last Filed: 12/25/22 12:27> Review of Systems Review of Systems: All systems reviewed & are unremarkable except as noted in HPI and below <HENRY Paz - Last Filed: 12/25/22 12:27> Constitutional: Constitutional: Denies body ache(s), Denies excessive sweating and Reports weakness <HENRY Paz - Last Filed: 12/25/22 12:27> Eyes: Eyes: Denies blurry vision <HENRY Paz - Last Filed: 12/25/22 12:27> ENT: Reports Normal hearing present <HENRY Paz - Last Filed: 12/25/22 12:27> Cardiovascular: Cardiovascular: Denies chest pain, Reports leg edema and Reports dyspnea <HENRY Paz - Last Filed: 12/25/22 12:27> Respiratory: Respiratory: Reports dyspnea <HENRY Paz - Last Filed: 12/25/22 12:27> Gastrointesti
[2022-12-25] MEDS: AMIODARONE HCL 200 MG TABLET PO (11:11)
--- NOTE | 2022-12-25 11:36 | WPDINTPN ---
Progress Note: A&P Assessment and Plan (1) Atrial fibrillation with rapid ventricular response: Code(s): I48.91 - Unspecified atrial fibrillation Status: Acute Assessment and Plan: Symptomatic AFib with RVR, difficult to control. Rate could not be controlled with rate limiting medications, amiodarone. -12/23: S/P failed DC cardioversion x 3 -12/23: Started on esmolol infusion, patient converted to sinus rhythm at 2:00 a.m. on 12/24 -12/23: on amiodarone infusion -discuss with Cardiology, amiodarone infusion be switched to p.o. amiodarone, -esmolol infusion will be discontinued -hold Coumadin, apixaban will be initiated when INR is < 2.0 (2) CHF (congestive heart failure): Code(s): I50.9 - Heart failure, unspecified Status: Acute Assessment and Plan: Does not appear to be in significant volume overload Will diurese as needed, currently on room air, (3) Chronic anticoagulation: Code(s): Z79.01 - assisted (current) use of anticoagulants Status: Acute Assessment and Plan: Patient currently on warfarin. Cardiology plans to switch to Eliquis once INR is < 2.0 (4) Dysphagia: Code(s): R13.10 - Dysphagia, unspecified Status: Acute Assessment and Plan: Patient does complain a cough, states he has bouts of cough. He also complaining of some dysphagia/swallowing difficulty/hears a snap when he turns his head to the left. 12/23 CT soft tissue neck and chest without contrast: IMPRESSION: 1. Small to moderate-sized bilateral posterior layering pleural effusions with dependent compressive atelectasis. 2. No etiology for reported dysphagia. No abnormal masses or pathologically enlarged lymphadenopathy identified in the and neck or chest. -GI has been consulted this morning Plan DVT prophylaxis -warfarin on hold, INR is therapeutic Nutrition -heart healthy diet Code Status - Full Code Case discussed with Cardiology, okay to move to intermediate Unit Total Critical Care Time - 31 minutes Due to a high probability of clinically significant, life threatening deterioration, the patient required my highest level of preparedness to intervene emergently and I personally spent this critical care time directly and personally managing the patient. This critical care time included obtaining a history; examining the patient; pulse oximetry; ordering and review of studies; arranging urgent treatment with development of a management plan; evaluation of patient's response to treatment; frequent reassessment; and discussions with other providers. It was exclusive of separately billable procedures and treating other patients and teaching time. Please see Assessment and Plan section and the rest of the note for further information on patient assessment and treatment Subjective Date/time seen: 12/25/22 11:36 Interval history: Reason for consult: Difficult control AFib RVR with amiodarone, rate controlling medications, failed DC cardioversion x3 on 12/23, 12/25/2022: Patient seen and examined the ICU. Patient is awake, alert, oriented, answers to questions and follows simple commands. No issues overnight -patient remains on amiodarone infusion and esmolol infusion, in sinus rhythm, rate controlled -denies any chest pain, shortness of breath abdominal pain, nausea, vomiting. He still complains of bouts of cough. Stable complaining of some dysphagia/swallowing difficulty/hears a snap when he turns his head to the left. Review of Systems Review of Systems: All systems reviewed & are unremarkable except as noted in HPI and below (HPI) Exam Narrative: General: Pt is alert awake and in NAD Lungs/Chest: Trachea central Clear BS B/L, No crackles or wheezing. Cardiac: Rate and rhythm, S1-S2 normal, with intermittently paced rhythm. No murmurs Circulation: Pedal pulses are intact and symmetrical. Abdomen: Normal bowel sounds.. Soft. NT. ND. Extremities: No clubbing, cyanosis
--- NOTE | 2022-12-25 13:13 | PCOTNOTE ---
Attempted to see pt twice today. Pt eating lunch the first attempt and second attempt, pt was being taken for a barium swallow study. Will continue to follow.
[2022-12-25] MEDS: PERFLUTREN LIPID MICROSPHERES 1.5 ML VIAL DILUTED TO 10 ML TOTAL VOLUME IV PUSH (15:00)
--- NOTE | 2022-12-25 15:35 | WPDGICN ---
Assessment and Plan Assessment and plan (1) Dysphagia: Code(s): R13.10 - Dysphagia, unspecified Status: Acute Assessment and Plan: Patient denies difficulty swallowing however he does note a clicking sound when he turns his head to the left and swallows. This sounds as though there may be some abnormality in the throat. I will order a barium swallow study. Endoscopy cannot be performed while he is anticoagulated. He may benefit from ENT evaluation to further clarify this if it persists. 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 Patient admitted the hospital with atrial fibrillation with a rapid ventricular response. He is on chronic anticoagulation for this. Patient admitted to the intensive care unit for control of his rapid heart rate. Patient has underlying congestive heart failure. Patient reports that for many years when he turns his head to the left and swallows he will for year a clicking type sound. He denies any coughing. He denies any difficulty swallowing. He wishes to have this investigated. Patient denies any difficulty with oral intake. In fact on visiting the patient today he completed regular diet including chicken, green beans, and mashed potatoes without difficulty. Review of Systems Review of Systems: Review of systems noncontributory. [facility] Past Medical History Medical History Atrial fibrillation BPH (benign prostatic hyperplasia) HLD (hyperlipidemia) STEBBINS (hard of hearing) IRIS on CPAP Surgical History Surgical History History of pacemaker Family History Family History Father Abdominal aneurysm Social History Social History Social History: Currently lives at home alone. being cared for at a facility. 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 Surrogate decision maker: Ronnie Durand, son. DNR. Smoking status: Never smoker Alcohol intake: never Substance use: never Lack of Transportation: No Lack of Food: Never True Current Housing: I Have Housing Concerned About Future Housing: No Difficulty Paying Gas/Electric Bills: No Difficulty Paying for Meds: No Currently Unemployed: No Education: Don't Know Difficulty w/ Childcare or Family Care: No Spiritual care concerns: No Meds Home Medications and Allergies Home Medications Medication Instructions Recorded Confirmed Type calcium citrate 315 mg-vitamin D3 315 tablet PO BID 12/20/22 12/20/22 History 5 mcg (200 unit) tablet (Calcium Citrate + D) cholecalciferol (vitamin D3) 25 25 mcg PO BID 12/20/22 12/20/22 History mcg (1,000 unit) tablet (Vitamin D3) diltiazem HCl 120 mg 120 mg PO DAILY 12/20/22 12/20/22 History capsule,extended release 24 hr glucosamine sulf dipot 550 cap PO BID 12/20/22 12/20/22 History chlr,msm,chond 550 mg-C 30 mg-jaleel 1 mg capsule (Glucosamine Chondroitin) rosuvastatin 5 mg tablet 5 mg PO HS 12/20/22 12/20/22 History tamsulosin 0.4 mg capsule 0.4 mg PO HS 12/20/22 12/20/22 History warfarin 5 mg tablet See Rx Instructions .Route .COMPLEX 12/20/22 12/20/22 History Allergies Allergy/AdvReac Type Severity Reaction Status Date / Time carvedilol Allergy Unknown Unknown Verified 12/20/22 19:09 codeine Allergy Unk
[2022-12-25] MEDS: METOPROLOL TARTRATE INJ 5 MG/5 ML VIAL IV PUSH (16:31)
--- NOTE | 2022-12-25 16:40 | IVDEFINITY ---
Prior to administration of IV Definity the patient was educated on the risks and benefits of the imaging enhancing agent including potential adverse side effects. The patient verbalized understanding. Allergies were verified. No exclusion criteria were identified and at least one of the following inclusion criteria were met: 1) physician request, 2) patient technically difficult to image (per the [place] [employer] guidelines of two or more segments not discernable within the apical view), or 3) questionable left ventricular function. ?
[2022-12-25 19:26] LABS: Adenovirus DNA Not Detected (Not Detected); Chlamydophila pneumoniae Not Detected (Not Detected); Coronavirus 229E Not Detected (Not Detected); Coronavirus HKU1 Not Detected (Not Detected); Coronavirus NL63 Not Detected (Not Detected); Coronavirus OC43 Not Detected (Not Detected); Human Metapneumovirus Not Detected (Not Detected); Human Parainfluenza Virus 1 Not Detected (Not Detected); Human Parainfluenza Virus 2 Not Detected (Not Detected); Human Parainfluenza Virus 3 Not Detected (Not Detected); Human Parainfluenza Virus 4 Not Detected (Not Detected); Human RSV B Not Detected (Not Detected); Influenza A Not Detected (Not Detected); Influenza B Not Detected (Not Detected); Mycoplasma pneumoniae Not Detected (Not Detected); Rhinovirus/Enterovirus Not Detected (Not Detected)
[2022-12-25] MEDS: METOPROLOL TARTRATE 25 MG TABLET PO (20:27)
[2022-12-25] MEDS: ROSUVASTATIN 5 MG TABLET PO (20:27)
[2022-12-25] MEDS: TAMSULOSIN HCL 0.4 MG CAPSULE PO (20:28)
[2022-12-26] VITALS (16 sets, daily range): BP systolic 107–136; BP diastolic 65–89; PULSE 60–86; RESP 13–20; TEMP 36–36.7; O2SAT 94–98
[2022-12-26 04:54] LABS: Hematocrit 38.7 % (42.0-52.0); Hemoglobin 12.8 g/dL (14.0-18.0); Mean Corpuscular HGB Conc 33.1 g/dl (32-36); Mean Corpuscular Volume 96.8 fl (80-100); Mean Platelet Volume 10.8 fl (7.4-10.4); Platelet Count Result 147 k/mm3 (150-375); Red Cell Distribution Width 14.1 % (11.5-14.5); White Blood Count 7.8 K/mm3 (4.5-10.0)
[2022-12-26 05:05] LABS: Alanine Aminotransferase 21 U/L (6-50); Alkaline Phosphatase 71 U/L (38-126); Anion Gap 6 mmol/L (8-16); Aspartate Amino Transferase 27 U/L (17-59); Bilirubin,Total 1.7 mg/dL (0.2-1.3); Blood Urea Nitrogen 18 mg/dL (9-20); Calcium 8.2 mg/dL (8.4-10.2); Carbon Dioxide 26 mmol/L (22-30); Chloride 105 mmol/L (98-107); Estimated CRCL calculation 48 ml/min; Estimated Glomerular Filt Rate 58; Glucose 77 mg/dL (65-110); INR 2.2; Potassium 3.9 mmol/L (3.4-5.0); Prothrombin Time 25.9 Seconds (11.1-14.7); Sodium 137 mmol/L (137-145)
[2022-12-26] MEDS: CENTRAL LINE FLUSH 10 ML IV PUSH ×3 (05:23→21:09)
--- NOTE | 2022-12-26 07:45 | PM.IMPN ---
Progress Note: A&P Assessment and Plan (1) Dysphagia: Code(s): R13.10 - Dysphagia, unspecified Status: Acute (2) Pacemaker: Code(s): Z95.0 - Presence of cardiac pacemaker Status: Acute (3) Left bundle branch block: Code(s): I44.7 - Left bundle-branch block, unspecified Status: Acute (4) CHF (congestive heart failure): Code(s): I50.9 - Heart failure, unspecified Status: Acute (5) Chronic anticoagulation: Code(s): Z79.01 - [facility] (current) use of anticoagulants Status: Acute (6) Nonproductive cough: Code(s): R05.8 - Other specified cough Status: Acute (7) Shortness of breath: Code(s): R06.02 - Shortness of breath Status: Acute (8) Atrial fibrillation with rapid ventricular response: Code(s): I48.91 - Unspecified atrial fibrillation Status: Acute Plan 82M w/ PMH IRIS on CPAP, HLD, BPH, a fib, PPM, on coumadin presents with progressive SOB 1) a fib w/ RVR - failed diltiazem w/ metoprolol. 12/23 failed dc cardioversion x3. now on amiodarone and esmolol IV. will follow with cardiology and critical care, plan to transition to PO tomorrow. - cont monitoring lytes - coumadin dc'ed. to start eliquis when INR below 2. INR on 12/24 3.2 - can be switched to oral BB and oral amio when appropriate with cardiology- started 25 mg metop tartrate and increased amiodarone to 200 mg bid. he still occasionally goes to the 90's in afib. - needs aggressive Ca repletion. did another 1 g of ca gluconate. follow on a daily basis. 2) HFrEF - acute decompensation, now resolved. lasix stopped 12/23, EF 30-35% + flash pulmonary edema likely related to a fib w/ RVR - cont cardiac diet, I/O's daily weights and fluid restriction - defer to cardiology consultation but recommend starting pt on oral BB and KOKO/ARB for systolic CHF. he does not need to be on esmolol drip anymore. - improved echo. now just ef 50-55% with mild LV wall thickness. RV not visualized. - pt needs to be on lasix atc, recommend taking it off hold. this is both for systolic chf and to prevent impending R heart failure if his systolic chf is not optimally controlled. Recommend 40 mg po daily as his last echo was greatly improved. 3) acute hypoxic respiratory failure - resolved. 2/2 to a fib w/ RVR and flash pulmonary edema 4) dysphagia/dry cough - complains of snapping sound when he turns his head to the left and swallows. CT neck w/ contrast unrevealing. GI consulted. - likely cardiac asthma combined with dependent atelectasis from pleural effusions--> added IS and asked RN to show pt how to use it From Barium swallow 12/25 There is small amount of laryngeal penetration without evident aspiration. The left atrium appears to exert mass effect upon the distal esophagus which is deviated towards the left. There is an oblique band of extrinsic compression with the esophagus passes between the left atrium and the more posterior aorta. There is a relatively abrupt change in course of the esophagus as it exits the thoracic hiatus. ENT consult placed. Most likely ok for dc after barium swallow and or Diet:? Heart healthy, saline lock IV GI Prophylaxis:? Not currently indicated DVT Prophylaxis:? SCDs, start eliquis when INR below 2.0 Lines: pIV Code Status: DNR Subjective Date/time seen: 12/26/22 07:45 Interval history: still has neck complaints. Review of Systems Review of Systems: n/a Exam Narrative: Const:? General: comfortab ? le Resp:? Effort & Inspectio ? n: normal respirat ? ory effort Cardio:? irregular rhythm, regular rate GI:? GI Palp: Yes Soft ? to palpation Extrem:? General: no edema Objective Data Vital Signs Vital Signs: Vital Signs - 24 hr 12/25/22 08:00 12/25/22 08:00 12/25/22 10:00 Temperature Pulse Rate 72 72 68 R
--- NOTE | 2022-12-26 07:53 | P.CDI_ITS ---
CDI Query Clarification Request Elevated BNP on 12/20/22 lab work, CHF noted in the assessment and plan. Patient receiving Lasix. Please specify type and acuity of heart failure if known. * Acute * Chronic * Acute on Chronic * Unknown * Systolic * Diastolic * Combined Systolic and Diastolic * Unknown
--- NOTE | 2022-12-26 07:53 | WPDCDIQUERY2 ---
CDI Query Clarification Request Elevated BNP on 12/20/22 lab work, CHF noted in the assessment and plan. Patient receiving Lasix. Please specify type and acuity of heart failure if known. Acute Chronic Acute on Chronic Unknown Systolic Diastolic Combined Systolic and Diastolic Unknown
[2022-12-26] MEDS: CHOLECALCIFEROL 1,000 UNITS TABLET 1000 UNITS PO ×2 (08:41→17:10)
[2022-12-26] MEDS: AMIODARONE HCL 200 MG TABLET PO ×2 (08:41→17:10)
[2022-12-26] MEDS: METOPROLOL TARTRATE 25 MG TABLET PO ×2 (08:41→21:09)
[2022-12-26] MEDS: CALCIUM GLUC 1,000 MG/NS 50 ML 1,000 MG/50 ML BAG 100 MG IVPB (08:42)
--- NOTE | 2022-12-26 13:19 | WPDGIPROGNO ---
Progress Note: A&P Assessment and Plan (1) Dysphagia: Code(s): R13.10 - Dysphagia, unspecified Status: Acute Assessment and Plan: Barium swallow today reveals distortion of the esophagus. It appears there is extrinsic compression in the area of the aorta and heart. Laryngeal penetration noted but no aspiration. Modified barium swallow was suggested in will be ordered. These abnormalities are of unclear origin but may be related to enlargement of the heart. 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 Had barium swallow today which reveals some distortion of the esophagus appears to be impinged upon by the heart shadow. Laryngeal penetration noted. No distinct aspiration identified. Review of Systems Review of Systems: Review of systems noncontributory. Exam Narrative: Physical exam reveals patient comfortable sitting at rest. Denies any pain on swallowing. Lungs reveal a few rhonchi. Heart without murmur. Abdomen bowel sounds present soft nontender. Objective Data Vital Signs Vital Signs: Vital Signs - 24 hr 12/25/22 14:00 12/25/22 14:00 12/25/22 16:00 Temperature Pulse Rate 81 74 Respiratory Rate 20 Blood Pressure 150/76 H Pulse Oximetry 94 98 Oxygen Delivery Room Air Fraction of Inspired Oxygen 12/25/22 16:31 12/25/22 16:00 12/25/22 16:00 Temperature 98.1 F Pulse Rate 117 H 78 78 Respiratory Rate 97 H Blood Pressure 130/101 H Pulse Oximetry 97 Oxygen Delivery Fraction of Inspired Oxygen 12/25/22 16:28 12/25/22 18:00 12/25/22 20:00 Temperature 98 F Pulse Rate 113 H 82 77 Respiratory Rate 20 19 Blood Pressure 131/102 H 136/95 H Pulse Oximetry 96 98 Oxygen Delivery Fraction of Inspired Oxygen 12/25/22 20:27 12/25/22 20:00 12/25/22 20:00 Temperature Pulse Rate 79 85 Respiratory Rate Blood Pressure Pulse Oximetry 98 Oxygen Delivery Room Air Fraction of Inspired Oxygen 12/25/22 22:00 12/26/22 00:00 12/26/22 00:00 Temperature 96.8 F L Pulse Rate 61 60 60 Respiratory Rate 15 Blood Pressure 107/73 Pulse Oximetry 97 Oxygen Delivery Fraction of Inspired Oxygen 12/26/22 00:00 12/26/22 02:00 12/26/22 01:30 Temperature Pulse Rate 66 60 Respiratory Rate 13 Blood Pressure Pulse Oximetry 98 94 Oxygen Delivery CPAP Autopap Fraction of Inspired Oxygen 12/26/22 04:00 12/26/22 04:00 12/26/22 04:00 Temperature 97.5 F L Pulse Rate 79 80 Respiratory Rate 20 Blood Pressure 136/86 Pulse Oximetry 98 97 Oxygen Delivery CPAP Fraction of Inspired Oxygen 12/26/22 06:00 12/26/22 08:00 12/26/22 08:00 Temperature 97.4 F L Pulse Rate 64 86 86 Respiratory Rate 16 Blood Pressure 115/71 Pulse Oximetry 98 Oxygen Delivery Fraction of Inspired Oxygen 12/26/22 08:00 12/26/22 09:34 12/26/22 10:00 Temperature Pulse Rate 86 70 Respiratory Rate 16 Blood Pressure Pulse Oximetry 98 Oxygen Delivery CPAP Room Air Fraction of Inspired Oxygen 21 12/26/22 12:00 12/26/22 12:00 Temperature 97.9 F Pulse Rate 75 75 Respiratory Rate 20 Blood Pressure 112/65 Pulse Oximetry 94 Oxygen Delivery Fraction of Inspired Oxygen Intake/Output Intake/Output: Intake & Output 12/23/22 12/24/22 12/25/22 12/26/22 23:59 23:59 23:59 23:59 Intake Total 1560 2346 1344 600 Output Total 6130 456 8067 1000 Balance 485 1471 44 -400 Meds/Results Medications: Active Medicat
--- NOTE | 2022-12-26 13:21 | PM.PNCARD ---
Progress Note: A&P Assessment and Plan (1) Atrial fibrillation with rapid ventricular response: Code(s): I48.91 - Unspecified atrial fibrillation Status: Acute Assessment and Plan: He underwent DC cardioversion x3 over the weekend with transient mandaeism of sinus rhythm followed by recurrent atrial fibrillation with RVR. He was continued on amiodarone drip and esmolol was added. He converted to sinus rhythm and remains in sinus rhythm this morning. -Continue maintenance dose of amiodarone 200mg daily -warfarin on hold, apixaban to be initiated when INR less than 2.0. Check INR daily. 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 Probably related atrial fibrillation rapid ventricular response and systolic/diastolic heart failure. Repeat echo shows LV function improved, EF 50-55%. -Diuresis as needed. He looks essentially euvolemic at this point. (5) Left bundle branch block: Code(s): I44.7 - Left bundle-branch block, unspecified Status: Acute (6) Pacemaker: Code(s): Z95.0 - Presence of cardiac pacemaker Status: Acute Assessment and Plan: Biotronik device. Interrogated 12/22. Subjective Date/time seen: 12/26/22 13:21 Interval history: Cardiology follow up for atrial fibrillation Remains in sinus rhythm this morning. Feeling well and had no complaints aside from persistent cough. Date of service 12/26/2022: Feeling better today. Sitting up in the chair and feels good being out of bed. He remains in sinus rhythm. Review of Systems Review of Systems: All systems reviewed & are unremarkable except as noted in HPI and below Constitutional: Constitutional: Denies body ache(s), Denies excessive sweating and Reports weakness Eyes: Eyes: Denies blurry vision ENT: Reports Normal hearing present Cardiovascular: Cardiovascular: Denies chest pain, Reports leg edema and Reports dyspnea Respiratory: Respiratory: Reports dyspnea Gastrointestinal: Gastrointestinal: Denies abdominal pain Genitourinary: Genitourinary: Denies hematuria Musculoskeletal: Musculoskeletal: Denies back pain Integumentary/Breasts: Skin/Breast: Denies dry skin Neurologic: Reports Normal hearing present, Denies Abnormal speech present and Reports weakness Psychiatric: Psychiatric: Denies anxiety Endocrine: Endocrine: Denies excessive sweating Hematologic/Lymphatic: Hematologic/Lymphatic: Denies easy bleeding Allergic/Immunologic: Allergic/Immunologic: Denies GI upset with certain foods Exam Const: General: comfortable and no acute distress HENMT: Face/Nose/Sinus: Normal nares present Mouth: Yes moist mucous membranes Eyes: General: appearance normal, both eyes and all related structures Sclera: sclerae normal Neck: Neck: supple and no JVD Carotids: no bruits Chest: Other: No reproducible chest wall pain to palpation Resp: Effort & Inspection: normal respiratory effort Auscultation: clear to auscultation bilaterally Cardio: Rate: regular rate Rhythm: regular rhythm Heart sounds: Murmur heart sound present GI: Inspection: non-distended Auscultation: normal bowel sounds Skin: General skin exam: normal color Neuro: Cranial nerves: Yes Normal hearing present Speech: normal speech and No Abnormal speech present Sensory Exam: normal sensation Extrem: General: edema Other: mild bilateral lower extremity edema Psych: Mental Status: mental status grossly normal Objective Data Vital Signs Vital Signs: Vital Signs - 24 hr 12/25/22 14:00 12/25/22 14:00
--- NOTE | 2022-12-26 14:57 | IVDEFINITY ---
Prior to administration of IV Definity the patient was educated on the risks and benefits of the imaging enhancing agent including potential adverse side effects. The patient verbalized understanding. Allergies were verified. No exclusion criteria were identified and at least one of the following inclusion criteria were met: 1) physician request, 2) patient technically difficult to image (per the [place] [employer] guidelines of two or more segments not discernable within the apical view), or 3) questionable left ventricular function. ?
--- NOTE | 2022-12-26 15:14 | PCSTNOTE ---
Please refer to the Modified Barium Swallow Evaluation in the EMR.
--- NOTE | 2022-12-26 16:02 | PCSTNOTE ---
Therapist called Dr. Clark to request Moderately Thick Liquids however physician was gone for the day. Therapist contacted JEANNIE Jewell, concerning requesting ICU physician/hospitalist ordering liquid consistency change. Therapist will follow-up tomorrow.
--- NOTE | 2022-12-26 17:40 | WPDCN ---
Assessment and Plan Assessment and plan (1) Paresis of left vocal cord: Code(s): J38.01 - Paralysis of vocal cords and larynx, unilateral Status: Acute Assessment and Plan: Endoscopy demonstrates a slightly paretic left vocal cord and bilateral paradoxical movements. The vocal cords are not acting normally. For the time being and have the patient see speech therapy at rehab and follow their instructions closely. He should be very careful with swallowing. He should see me when he leaves rehab I would like to repeat endoscopy in with any persistent issues we can refer him to a dedicated java user interface developer. (2) Vocal cord dysfunction: Code(s): J38.3 - Other diseases of vocal cords Status: Acute HPI Data of Consult Date/Time: 12/26/22 17:40 Requesting Physician: Lela Robledo MD Primary Care Provider: Joseph Martin, Consult Narrative Narrative: Socrates Durand is a 82 year old male with some dysphagia and a worsening cough patient points to left-sided neck consists of feels like something is in there. CT personally reviewed I agree with the read I do not see any head or neck pathology which would correspond to the endoscopy that I will describe later. Review of Systems Review of Systems: All systems reviewed & are unremarkable except as noted in HPI and below PMFSH Past Medical History Medical History Atrial fibrillation BPH (benign prostatic hyperplasia) HLD (hyperlipidemia) [place] (hard of hearing) IRIS on CPAP Surgical History Surgical History History of pacemaker Family History Family History Father Abdominal aneurysm Social History Social History Social History: Currently lives at home alone. being cared for at a facility. 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 Surrogate decision maker: Ronnie Durand, son. DNR. Smoking status: Never smoker Alcohol intake: never Substance use: never Lack of Transportation: No Lack of Food: Never True Current Housing: I Have Housing Concerned About Future Housing: No Difficulty Paying Gas/Electric Bills: No Difficulty Paying for Meds: No Currently Unemployed: No Education: Don't Know Difficulty w/ Childcare or Family Care: No Spiritual care concerns: No Meds Home Medications and Allergies Home Medications Medication Instructions Recorded Confirmed Type calcium citrate 315 mg-vitamin D3 315 tablet PO BID 12/20/22 12/20/22 History 5 mcg (200 unit) tablet (Calcium Citrate + D) cholecalciferol (vitamin D3) 25 25 mcg PO BID 12/20/22 12/20/22 History mcg (1,000 unit) tablet (Vitamin D3) diltiazem HCl 120 mg 120 mg PO DAILY 12/20/22 12/20/22 History capsule,extended release 24 hr glucosamine sulf dipot 550 cap PO BID 12/20/22 12/20/22 History chlr,msm,chond 550 mg-C 30 mg-jaleel 1 mg capsule (Glucosamine Chondroitin) rosuvastatin 5 mg tablet 5 mg PO HS 12/20/22 12/20/22 History tamsulosin 0.4 mg capsule 0.4 mg PO HS 12/20/22 12/20/22 History warfarin 5 mg tablet See Rx Instructions .Route .COMPLEX 12/20/22 12/20/22 History Allergies Allergy/AdvReac Type Severity Reaction Status Date / Time carvedilol Allergy Unknown Unknown Verified 12/20/22 19:09 codeine Allergy Unknown Hallucinati Verified 12/20/22 19:09 ng Vital Signs Vital Signs - 24 hr 12/25/22 18:00 12/25/22 20:00 12/25/22 20:27 Temperature 36.6 C Pulse Rate 82 77 79 Respiratory Rate 19 Blood Pressure 136/95 H Pulse Oximetry 98 Oxygen Delivery 12/25/22 20:00 12/25/22 20:00 12/25/22 22:00 Temperature Pulse Rate 85 61 Respiratory Rate Blood Pressure Pulse Oximetry 98 Oxygen Delivery Room Air 12/26/22 00:00 12/26/22 00:00 12/26/22 00
--- NOTE | 2022-12-26 17:43 | WPDPROCEDUR ---
Procedures Laryngoscopy Laryngoscopy Comments: Consents obtained verbally. Nose anesthetized with 4% lidocaine mixed with Afrin. Scope placed on the right-sided nasal mucosa is very boggy. Nasopharynx slightly erythematous. Pharynx is normal all the anatomic side sites were visualized no masses no lesions no ulcerations. The larynx was very very interesting. The left cord moves but not fully more posteriorly slightly paretic. The right cord seems to move fully it is slightly atrophied in the vocal process over compensate. Almost like a vocal cord dysfunction type picture. Patient tolerated the procedure well.
[2022-12-26] MEDS: ROSUVASTATIN 5 MG TABLET PO (21:09)
[2022-12-26] MEDS: TAMSULOSIN HCL 0.4 MG CAPSULE PO (21:09)
[2022-12-27] VITALS (12 sets, daily range): BP systolic 98–129; BP diastolic 57–72; PULSE 52–82; RESP 18–22; TEMP 36.2–37.1; O2SAT 95–98
[2022-12-27] MEDS: CENTRAL LINE FLUSH 10 ML IV PUSH (04:42)
[2022-12-27 05:01] LABS: Hematocrit 38.6 % (42.0-52.0); Hemoglobin 12.8 g/dL (14.0-18.0); Immature Platelet Fraction Pct 6.1 % (0.9-11.2); Mean Corpuscular HGB Conc 33.2 g/dl (32-36); Mean Corpuscular Hemoglobin 31.8 pg (26-34); Mean Platelet Volume 10.5 fl (7.4-10.4); Platelet Count Result 137 k/mm3 (150-375); Red Blood Count 4.02 M/mm3 (4.6-6.20); Red Cell Distribution Width 13.9 % (11.5-14.5); White Blood Count 8.1 K/mm3 (4.5-10.0)
[2022-12-27 05:09] LABS: INR 1.7; Prothrombin Time 21.4 Seconds (11.1-14.7)
[2022-12-27 05:11] LABS: Alanine Aminotransferase 25 U/L (6-50); Alkaline Phosphatase 67 U/L (38-126); Anion Gap 2 mmol/L (8-16); Aspartate Amino Transferase 34 U/L (17-59); Bilirubin,Total 2.1 mg/dL (0.2-1.3); Blood Urea Nitrogen 19 mg/dL (9-20); Calcium 8.1 mg/dL (8.4-10.2); Carbon Dioxide 27 mmol/L (22-30); Chloride 105 mmol/L (98-107); Estimated CRCL calculation 52 ml/min; Estimated Glomerular Filt Rate > 60; Glucose 79 mg/dL (65-110); Magnesium 1.9 mg/dL (1.6-2.3); Potassium 3.8 mmol/L (3.4-5.0); Sodium 134 mmol/L (137-145)
--- NOTE | 2022-12-27 08:10 | WPDGIPROGNO ---
Progress Note: A&P Assessment and Plan (1) Dysphagia: Code(s): R13.10 - Dysphagia, unspecified Status: Acute Assessment and Plan: Patient with dysphagia. ENT evaluation suggest paresis of 1 of the vocal cords. Speech therapy evaluation in progress. They may suggest some dietary modifications. Will defer to their evaluation. patient anxious to go home. His is soon. Outpatient follow-up with speech therapy in ENT may be of benefit. (2) Paresis of left vocal cord: Code(s): J38.01 - Paralysis of vocal cords and larynx, unilateral Status: Acute (3) Vocal cord dysfunction: Code(s): J38.3 - Other diseases of vocal cords Status: Acute (4) Pacemaker: Code(s): Z95.0 - Presence of cardiac pacemaker Status: Acute (5) Chronic anticoagulation: Code(s): Z79.01 - custodial (current) use of anticoagulants Status: Acute (6) Atrial fibrillation with rapid ventricular response: Code(s): I48.91 - Unspecified atrial fibrillation Status: Acute Subjective Date/time seen: 12/27/22 08:10 Interval history: Patient alert this morning. Anxious to go home. Appreciative of ENT and speech therapy evaluation. Patient denies significant difficulties at present. Review of Systems Review of Systems: Review of systems noncontributory. Exam Narrative: Physical exam reveals patient be alert comfortable at rest. Vital signs stable. Lungs are clear. Heart without murmur. Objective Data Vital Signs Vital Signs: Vital Signs - 24 hr 12/26/22 09:34 12/26/22 10:00 12/26/22 12:00 Temperature Pulse Rate 70 75 Respiratory Rate Blood Pressure Pulse Oximetry Oxygen Delivery Room Air Fraction of Inspired Oxygen 12/26/22 12:00 12/26/22 12:00 12/26/22 14:00 Temperature 97.9 F Pulse Rate 75 75 67 Respiratory Rate 20 20 Blood Pressure 112/65 Pulse Oximetry 94 94 Oxygen Delivery Room Air Fraction of Inspired Oxygen 12/26/22 16:00 12/26/22 16:00 12/26/22 16:00 Temperature 98.1 F Pulse Rate 84 71 71 Respiratory Rate 15 15 Blood Pressure 117/80 Pulse Oximetry 95 95 Oxygen Delivery Room Air Fraction of Inspired Oxygen 21 12/26/22 18:00 12/26/22 21:09 12/26/22 23:00 Temperature 97.7 F Pulse Rate 68 74 70 Respiratory Rate 18 Blood Pressure 132/89 Pulse Oximetry 98 Oxygen Delivery Fraction of Inspired Oxygen 12/26/22 20:00 12/26/22 20:00 12/26/22 22:00 Temperature Pulse Rate 71 71 64 Respiratory Rate 18 Blood Pressure Pulse Oximetry 98 Oxygen Delivery Room Air Fraction of Inspired Oxygen 21 12/26/22 22:30 12/27/22 02:03 12/27/22 00:00 Temperature Pulse Rate 68 62 60 Respiratory Rate 16 18 Blood Pressure Pulse Oximetry 97 98 Oxygen Delivery Autopap Autopap Fraction of Inspired Oxygen 12/27/22 00:00 12/27/22 02:00 12/27/22 03:22 Temperature 97.8 F Pulse Rate 60 66 62 Respiratory Rate 18 22 H Blood Pressure 129/72 Pulse Oximetry 98 98 Oxygen Delivery Autopap Fraction of Inspired Oxygen 21 12/27/22 03:32 12/27/22 03:32 12/27/22 05:30 Temperature Pulse Rate 64 64 68 Respiratory Rate 22 H Blood Pressure Pulse Oximetry 98 Oxygen Delivery Autopap Fraction of Inspired Oxygen 12/27/22 07:59 Temperature 98.7 F Pulse Rate 76 Respiratory Rate 18 Blood Pressure Pulse Oximetry 95 Oxygen Delivery Fraction of Inspired Oxygen Intake/Output Intake/Output: Intake & Output 12/24/22 12/25/22 12/26/22 12/27/22 23:59 23:59 23:59 23:59 Intake Total 2346 1344 1100 500 Output Total 875 1300 1775 1200 Balance 1470 71 -333 -283 Meds/Results Medications: Active Medications Generic Name Dose Route Start Last Admin Trade Name Freq PRN Reason Stop Dose Admin Acetaminophen 650 mg 12/20/22 14:07 Acetaminophen 325 Mg Tablet PO Q4H PRN Mild Pain (1-3) or Fever
[2022-12-27] MEDS: METOPROLOL TARTRATE 25 MG TABLET PO (08:15)
[2022-12-27] MEDS: AMIODARONE HCL 200 MG TABLET PO (08:16)
[2022-12-27] MEDS: CHOLECALCIFEROL 1,000 UNITS TABLET 1000 UNITS PO (08:16)
--- NOTE | 2022-12-27 11:41 | PM.DS ---
DS: Admitting Diagnosis Discharge Date December 27, 2022 Admitting Diagnosis AFib RVR DS: Discharge Diagnosis Discharge Diagnosis (1) Dysphagia: Code(s): R13.10 - Dysphagia, unspecified Status: Acute (2) Pacemaker: Code(s): Z95.0 - Presence of cardiac pacemaker Status: Acute (3) Left bundle branch block: Code(s): I44.7 - Left bundle-branch block, unspecified Status: Acute (4) CHF (congestive heart failure): Code(s): I50.9 - Heart failure, unspecified Status: Acute (5) Chronic anticoagulation: Code(s): Z79.01 - clinic director (current) use of anticoagulants Status: Acute (6) Nonproductive cough: Code(s): R05.8 - Other specified cough Status: Acute (7) Shortness of breath: Code(s): R06.02 - Shortness of breath Status: Acute (8) Atrial fibrillation with rapid ventricular response: Code(s): I48.91 - Unspecified atrial fibrillation Status: Acute Plan 82M w/ PMH IRIS on CPAP, HLD, BPH, a fib, PPM, on coumadin presents with progressive SOB 1) a fib w/ RVR - failed diltiazem w/ metoprolol. 12/23 failed dc cardioversion x3. now on amiodarone and esmolol IV. will follow with cardiology and critical care, plan to transition to PO tomorrow. - cont monitoring lytes - coumadin dc'ed. to start eliquis when INR below 2. INR on 12/24 3.2 - can be switched to oral BB and oral amio when appropriate with cardiology- started 25 mg metop tartrate and increased amiodarone to 200 mg bid. he still occasionally goes to the 90's in afib. - needs aggressive Ca repletion. did another 1 g of ca gluconate. follow on a daily basis. 2) HFrEF - acute decompensation, now resolved. lasix stopped 12/23, EF 30-35% + flash pulmonary edema likely related to a fib w/ RVR - cont cardiac diet, I/O's daily weights and fluid restriction - defer to cardiology consultation but recommend starting pt on oral BB and KOKO/ARB for systolic CHF. he does not need to be on esmolol drip anymore. - improved echo. now just ef 50-55% with mild LV wall thickness. RV not visualized. - pt needs to be on lasix atc, recommend taking it off hold. this is both for systolic chf and to prevent impending R heart failure if his systolic chf is not optimally controlled. Recommend 40 mg po daily as his last echo was greatly improved. 3) acute hypoxic respiratory failure - resolved. 2/2 to a fib w/ RVR and flash pulmonary edema 4) dysphagia/dry cough - complains of snapping sound when he turns his head to the left and swallows. CT neck w/ contrast unrevealing. GI consulted. - likely cardiac asthma combined with dependent atelectasis from pleural effusions--> added IS and asked RN to show pt how to use it From Barium swallow 12/25 There is small amount of laryngeal penetration without evident aspiration. The left atrium appears to exert mass effect upon the distal esophagus which is deviated towards the left. There is an oblique band of extrinsic compression with the esophagus passes between the left atrium and the more posterior aorta. There is a relatively abrupt change in course of the esophagus as it exits the thoracic hiatus. ENT consult placed. Most likely ok for dc after barium swallow and or Diet:? Heart healthy, saline lock IV GI Prophylaxis:? Not currently indicated DVT Prophylaxis:? SCDs, start eliquis when INR below 2.0 Lines: pIV Code Status: DNR DS: Summary Hospital Course Hospital Course: Patient is an elderly gentleman who is 82 years old came in numerous complaints. He was found to be in AFib with RVR. Cardiology was consulted medications were adjusted. He will be discharged on a new cardiac regimen for rate control on also on anticoagulation. Otherwise his rate is currently controlled. He also has some underlying heart failure and was on diuretics in hospital he will be discharged on Lasix 20mg which being new medication. Otherwise he recently lost his and is going to be discha
[2022-12-27 14:13] LABS: EDCOVIDSCREEN Negative (Negative)
--- NOTE | 2022-12-27 14:54 | PC.NURSE ---
home- discharged to [facility] for rehab- family transporting pt via private vehicle
== END 2022-12-27 14:49 | DRG 308 ==
LOC: ANHED 07:50 → ANHIMU 11:01 → ANHICU 12-28 08:58 → ANHIMU 12-28 08:58
PROVIDERS: Emergency Medicine; Internal Medicine; Internal Medicine Cardiovascular Disease; Student in an Organized Health Care Education/Training Program; Admitting Provider General Practice; Emergency Provider General Practice; PCP Internal Medicine Geriatric Medicine; Visit Provider Chiropractor
DX: I48.20 Chronic atrial fibrillation, unspecified (principal); I50.41 Acute combined systolic (congestive) and diastolic (congestive) heart failure; J96.00 Acute respiratory failure, unspecified whether with hypoxia or hypercapnia; I42.9 Cardiomyopathy, unspecified; I44.7 Left bundle-branch block, unspecified; I27.20 Pulmonary hypertension, unspecified; J38.01 Paralysis of vocal cords and larynx, unilateral; J38.3 Other diseases of vocal cords; E78.5 Hyperlipidemia, unspecified; N40.0 Benign prostatic hyperplasia without lower urinary tract symptoms; R55 Syncope and collapse; R13.10 Dysphagia, unspecified; G47.33 Obstructive sleep apnea (adult) (pediatric); Z20.822 Contact with and (suspected) exposure to COVID-19; Z79.01 Long term (current) use of anticoagulants; Z95.0 Presence of cardiac pacemaker
CPT/HCPCS: 36415; 36569; 70490; 71045; 71250; 74220; 80048; 80053; 83605; 83690; 83735; 83880; 84100; 84443; 84484; 85025; 85027; 85055; 85380; 85610; 85730; 87426; 87633; 87637; 92526; 92611; 93005; 93306; 93308; 94640; 96365; 96366; 97110; 97161; 97165; 97530; 99285; A9270; C8924; C8929; C9803; G0378; J0282; J0612; J1160; J1940; J2704; Q9957

== ENCOUNTER 2023-01-10 21:08 | Inpatient (IN) | payer MEDICARE, BC, SELFPAY ==
[2023-01-10] VITALS (17 sets, daily range): BP systolic 90–129; BP diastolic 60–74; PULSE 60–76; RESP 8–27; TEMP 36.7; O2SAT 92–98
--- NOTE | 2023-01-10 | ECG_ITS ---
Measurements Intervals [place] Rate: 59 P: 94 DE: 194 QRS: -6 QRSD: 136 T: 69 QT: 442 QTc: 441 Interpretive Statements ELECTRONIC ATRIAL PACEMAKER LEFT BUNDLE BRANCH BLOCK BASELINE ARTIFACT- I, II, III, AVR, AVL, AVF, V1-V6 ABNORMAL ECG COMPARED TO ECG 12/23/2022 14:57:32 ATRIAL PACEMAKER NOW PRESENT Electronically Signed On 01-11-2023 8:18:50 CDT by Henry Jerez D.O.
--- NOTE | ~2023-01-10 | CT_ITS ---
EXAMINATION: CT abdomen pelvis wo con DATE: 01/11/2023 01:46 INDICATION: Urinary tract infection in male. Acute kidney injury. TECHNIQUE: Computed tomography (CT) of the abdomen and pelvis was performed without intravenous contr ast. Automated exposure control and iterative reconstruction technique were employed. The dose-length product was 966.29 mGy-cm. COMPARISON: None. FINDINGS: The visualized portions of the lung bases demonstrate mild atelectasis and mild chronic hattie g disease. There is mild bronchiectasis bilaterally. No pleural effusion. The heart size is normal. T here are coronary artery calcifications. No pericardial effusion. There are pacer wires in right atri um and right ventricle. There are cysts in the liver measuring up to 7.2 cm. There are changes of cho lecystectomy. The spleen, pancreas, and adrenal glands are normal. There are cysts in the kidneys isabel suring up to 4.4 cm on the right. There is no urolithiasis. The prostate is mildly enlarged. There is a left inguinal hernia containing fat. There is diverticulosis of the colon without evidence of dive rticulitis. There are no dilated loops of bowel. The appendix is normal. Aortic atherosclerosis is no teto. There are no pathologically enlarged lymph nodes. There is no free intraperitoneal fluid. There is severe thoracic and lumbar spondylosis. IMPRESSION: 1. No urolithiasis. Reviewed, dictated and finalized at location E. IMPRESSION: 1. No urolithiasis.
--- NOTE | ~2023-01-10 | XR_ITS ---
EXAM: XR elbow RT 2V DATE: 01/10/2023 22:58 HISTORY: right elbow injury, skin tear . COMPARISON: None available. FINDINGS: Normal mineralization. No fracture or dislocation. No lytic or blastic lesion. Mild degene rative change at the elbow joint. No erosion or periosteal change. Soft tissues within normal limits. IMPRESSION: No acute osseous finding in the right elbow. Reviewed, dictated and finalized at location K.
--- NOTE | ~2023-01-10 | XR_ITS ---
EXAMINATION: XR chest 2V Exam Date/Time: 01/10/2023 21:33 CDT HISTORY: generalized weakness; Afib, non smoker Comparison: 12/23/2022. RESULT: Lines, tubes, and devices: Left chest pacer with intact leads. Lungs and pleura: Mild senescent change. Streaky bibasilar scar/atelectasis, otherwise clear. Cardiomediastinal silhouette: Stable. Other: No acute osseous or upper abdominal finding. IMPRESSION: No acute cardiopulmonary process. Reviewed, dictated and finalized at location K.
[2023-01-10 21:42] LABS: Basophils Absolute Auto 0.1 K/mm3 (0.0-0.1); Basophils Percent Auto 0.6 % (0.2-1.2); Eosinophils Absolute Auto 0.1 K/mm3 (0-0.3); Eosinophils Percent Auto 1.1 % (0-4.4); Hematocrit 38.5 % (42.0-52.0); Hemoglobin 12.9 g/dL (14.0-18.0); Immature Granulocyte Absolute 0.14 K/mm3 (0.00-0.031); Immature Granulocyte Percent A 1.6 % (0-0.5); Lymphocytes Absolute Auto 1.36 K/mm3 (0.9-3.2); Lymphocytes Percent Auto 15.1 % (18.3-44.2); Mean Corpuscular HGB Conc 33.5 g/dl (32-36); Mean Corpuscular Hemoglobin 31.3 pg (26-34); Mean Corpuscular Volume 93.4 fl (80-100); Mean Platelet Volume 10.1 fl (7.4-10.4); Monocytes Absolute Auto 0.7 K/mm3 (0.1-0.6); Monocytes Percent Auto 8.2 % (2.6-8.5); Neutrophils Absolute Auto 6.6 K/mm3 (1.3-6.7); Neutrophils Percent Auto 73.4 % (45.5-73.1); Platelet Count Result 220 k/mm3 (150-375); Red Blood Count 4.12 M/mm3 (4.6-6.20); Red Cell Distribution Width 13.2 % (11.5-14.5)
[2023-01-10 21:54] LABS: Alanine Aminotransferase 25 U/L (6-50); Albumin Level 3.7 g/dL (3.5-5.1); Alkaline Phosphatase 88 U/L (38-126); Anion Gap 9 mmol/L (8-16); Aspartate Amino Transferase 32 U/L (17-59); Blood Urea Nitrogen 24 mg/dL (9-20); Calcium 8.7 mg/dL (8.4-10.2); Carbon Dioxide 25 mmol/L (22-30); Chloride 100 mmol/L (98-107); Estimated CRCL calculation 35 ml/min; Estimated Glomerular Filt Rate 48; Glucose 101 mg/dL (65-110); Potassium 3.9 mmol/L (3.4-5.0); Sodium 134 mmol/L (137-145)
--- NOTE | 2023-01-10 22:07 | ED.GENADULT ---
HPI - General Adult General Chief complaint: Weakness <Be Melchor PA-C - Last Filed: 01/11/23 02:30> Stated complaint: gen. weak, glf <Be Melchor PA-C - Last Filed: 01/11/23 02:30> Time Seen by Provider: 01/10/23 21:32 <Be Melchor PA-C - Last Filed: 01/11/23 02:30> Source: patient <CODY Duckworth Last Filed: 01/11/23 02:30> Mode of arrival: ambulatory <CODY Duckworth Last Filed: 01/11/23 02:30> Limitations: no limitations <CODY Duckworth Last Filed: 01/11/23 02:30> History of Present Illness HPI narrative: This is a 82-year-old male who presents to the ED via EMS from home with complaint of generalized weakness starting approximately 1900 tonight. Patient's family is here. Patient reports that every night before bed he starts to feel a little weak. He feels generalized weakness in the legs whenever he is standing up. He states sometimes it is hard to get his balance and he cannot stop himself from stumbling backwards. He states this is what happened tonight and he hit his elbow on the door and fell backwards into a vacuum. He did not make it all the way to the ground. Denies head injury or LOC. Denies any preceding chest pain, shortness of breath. He has additional complaints of recent urinary burning but denies flank pain, abdominal pain, fevers, chills, nausea, vomiting or diarrhea. Per chart review patient was recently admitted to the hospital for acute A-fib with RVR and had to be admitted to the ICU after difficulty with achieving rate control. He was discharged recently to [facility] for rehab. He was cleared from a rehab perspective and has been home for the past week. He has been having urinary burning and was just started on Bactrim today by primary care. <Be Melchor PA-C - Last Filed: 01/11/23 02:30> Related Data Home medications: Home Medications Medication Instructions Recorded Confirmed calcium citrate 315 mg-vitamin D3 315 tablet PO BID 12/20/22 01/11/23 5 mcg (200 unit) tablet (Calcium Citrate + D) cholecalciferol (vitamin D3) 25 25 mcg PO BID 12/20/22 01/11/23 mcg (1,000 unit) tablet (Vitamin D3) glucosamine sulf dipot 550 cap PO BID 12/20/22 01/11/23 chlr,msm,chond 550 mg-C 30 mg-jaleel 1 mg capsule (Glucosamine Chondroitin) tamsulosin 0.4 mg capsule 0.4 mg PO HS 12/20/22 01/11/23 atorvastatin 20 mg tablet 20 mg PO HS 01/11/23 01/11/23 <Be Melchor PA-C - Last Filed: 01/11/23 02:30> Allergies/adverse reactions: Allergies Allergy/AdvReac Type Severity Reaction Status Date / Time carvedilol Allergy Unknown Unknown Verified 12/20/22 19:09 codeine AdvReac Unknown Hallucinati Verified 01/13/23 09:49 ng <Be Melchor PA-C - Last Filed: 01/11/23 02:30> [facility] Past Medical History Medical History: Medical History (Updated 01/13/23 @ 15:36 by Lela Robledo MD) Atrial fibrillation BPH (benign prostatic hyperplasia) CHF (congestive heart failure) CKD (chronic kidney disease) HLD (hyperlipidemia) [place] (hard of hearing) IRIS on CPAP Pacemaker Paresis of left vocal cord <Be Melchor PA-C - Last Filed: 01/11/23 02:30> Surgical History Surgical History: Surgical History History of pacemaker <Be Melchor PA-C - Last Filed: 01/11/23 02:30> Family History Family History: Family History (Updated 01/11/23 @ 03:19 by Keya Jimenez RN) Father Abdominal aneurysm Son Kidney carcinoma Mother Hypertension <Be Melchor PA-C - Last Filed: 01/11/23 02:30> Social History Social History: Social History Social History: Currently lives at home alone. being cared for at a facility. 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 Surrogate decision maker: Ronnie Durand, son. DNR. Smoking status: Never smoker Alcohol intake: never Subst
[2023-01-10 23:13] LABS: Appearance Urine Clear (Clear); Bacteria Urine None Seen /hpf; Bilirubin Urine Negative (Negative); Blood Urine Negative (Negative); Color Urine Yellow (Yellow); Glucose Urine UA Negative (Negative); Ketones Urine Negative (Negative); Leukocyte Esterase Ur 2+ LEU/UL (Negative); Nitrate Urine Negative (Negative); Non Pathogenic Casts 0-2; Protein Urine Negative (Negative); RBC Urine 0-2 /hpf (0-2); Specific Grav Ur 1.011 (1.001-1.035); Squamous Epithelial Cell Urine None seen /hpf (Few); Urobilinogen Urine 0.2 mg/dL (<2.0); WBC Urine 21-50 /hpf
[2023-01-10 23:15] LABS: INR 1.2; Magnesium 2.1 mg/dL (1.6-2.3); Phosphorus 2.7 mg/dL (2.5-4.5); Prothrombin Time 15.5 Seconds (11.1-14.7)
[2023-01-10 23:16] LABS: Add Urine Microscopic? YES
[2023-01-10 23:16] LABS: Partial Thromboplastin Time 34.3 SECONDS (22.3-36.8)
[2023-01-10 23:41] LABS: NT Pro B Type Natriuretic Pept 365 pg/mL (19.9-100)
[2023-01-11] VITALS (25 sets, daily range): BP systolic 108–128; BP diastolic 58–85; PULSE 60–114; RESP 12–21; TEMP 36.1–36.3; O2SAT 92–98; BMI 28.2
--- NOTE | 2023-01-11 00:37 | PM.IMHP ---
H&P: HPI History of Present Illness Date/Time: 01/11/23 00:37 Chief Complaint: Generalized weakness Narrative: 82-year-old male who presents to the ED via EMS from home with complaint of generalized weakness starting approximately 1900 tonight.? Patient reports that every night before bed he starts to feel a little weak.? He feels generalized weakness in the legs whenever he is standing up.? He states sometimes it is hard to get his balance and he cannot stop himself from stumbling backwards.? He states this is what happened tonight and he hit his elbow on the door and fell backwards into a vacuum.? He did not make it all the way to the ground.? Denies head injury or LOC.? Denies any preceding chest pain, shortness of breath.? He has additional complaints of recent urinary burning but denies flank pain, abdominal pain, fevers, chills, nausea, vomiting or diarrhea. he was recently discharged after being managed for AFIB, has been to short term rehab. Review of Systems Review of Systems: All systems reviewed & are unremarkable except as noted in HPI and below PMFSH Past Medical History Medical History Atrial fibrillation BPH (benign prostatic hyperplasia) HLD (hyperlipidemia) [place] (hard of hearing) IRIS on CPAP Surgical History Surgical History History of pacemaker Family History Family History Father Abdominal aneurysm Social History Social History Social History: Currently lives at home alone. being cared for at a facility. 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 Surrogate decision maker: Ronnie Durand, son. DNR. Smoking status: Never smoker Alcohol intake: never Substance use: never Lack of Transportation: No Lack of Food: Never True Current Housing: I Have Housing Concerned About Future Housing: No Difficulty Paying Gas/Electric Bills: No Difficulty Paying for Meds: No Currently Unemployed: No Education: Don't Know Difficulty w/ Childcare or Family Care: No Spiritual care concerns: No Meds Home Medications and Allergies Home Medications Medication Instructions Recorded Confirmed Type calcium citrate 315 mg-vitamin D3 315 tablet PO BID 12/20/22 12/20/22 History 5 mcg (200 unit) tablet (Calcium Citrate + D) cholecalciferol (vitamin D3) 25 25 mcg PO BID 12/20/22 12/20/22 History mcg (1,000 unit) tablet (Vitamin D3) glucosamine sulf dipot 550 cap PO BID 12/20/22 12/20/22 History chlr,msm,chond 550 mg-C 30 mg-jaleel 1 mg capsule (Glucosamine Chondroitin) rosuvastatin 5 mg tablet 5 mg PO HS 12/20/22 12/20/22 History tamsulosin 0.4 mg capsule 0.4 mg PO HS 12/20/22 12/20/22 History amiodarone 200 mg tablet (Pacerone) 200 mg PO BID 30 days #60 tabs 12/27/22 Rx apixaban 2.5 mg tablet (Eliquis) 2.5 mg PO BID #60 tabs 12/27/22 Rx metoprolol tartrate 25 mg tablet 25 mg PO Q12HR 30 days #60 tabs 12/27/22 Rx furosemide 20 mg tablet 20 mg PO DAILY #30 tabs 01/07/23 Rx Allergies Allergy/AdvReac Type Severity Reaction Status Date / Time carvedilol Allergy Unknown Unknown Verified 12/20/22 19:09 codeine Allergy Unknown Hallucinati Verified 12/20/22 19:09 ng Vital Signs Vital Signs - 24 hr 01/10/23 21:11 01/10/23 21:30 01/10/23 21:31 Temperature 98.0 F Pulse Rate 76 61 60 Respiratory Rate 22 H 21 H 25 H Blood Pressure 129/69 115/63 Pulse Oximetry 92 94 95 01/10/23 21:41 01/10/23 21:45 01/10/23 22:18 Temperature Pulse Rate 61 65 Respiratory Rate 27 H 20 Blood Pressure 127/74 Pulse Oximetry 95 98 98 01/10/23 22:30 01/10/23 22:45 01/10/23 23:11 Temperature Pulse Rate Respiratory Rate Blood Pressure Pulse Oximetry 95 96 97 01/10/23 23:13 Temperature Pulse Rate 61 Respiratory Rate 12 Blood Pr
[2023-01-11] MEDS: SODIUM CHLORIDE 0.9% IV 1,000 ML 75 ML IV CONT ×2 (02:56→16:10)
--- NOTE | 2023-01-11 03:14 | ADMGEN ---
This patient, Socrates Durand, was admitted to Medical Room 251-01. Patient/family oriented to hospital policies and general routines including ID bracelet, bed and alarms, visiting hours, pain management, procedures, bathroom and other care routines, personal items, smoking policy, room service/diet, and visiting hours. Information on how to activate the Rapid Response Team has been discussed. Patient/Family are encouraged to report perceived risks to care and to ask questions if they do not understand what they are told or what they should do.
[2023-01-11 03:52] LABS: Influenza A QL RT-PCR Negative (Negative); Influenza B QL RT-PCR Negative (Negative); SARS-CoV-2 RNA PCR Negative (Negative)
[2023-01-11 06:11] LABS: Basophils Absolute Auto 0.1 K/mm3 (0.0-0.1); Basophils Percent Auto 0.5 % (0.2-1.2); Eosinophils Absolute Auto 0.1 K/mm3 (0-0.3); Eosinophils Percent Auto 1.3 % (0-4.4); Hematocrit 39.4 % (42.0-52.0); Immature Granulocyte Absolute 0.14 K/mm3 (0.00-0.031); Immature Granulocyte Percent A 1.5 % (0-0.5); Lymphocytes Absolute Auto 1.55 K/mm3 (0.9-3.2); Lymphocytes Percent Auto 16.5 % (18.3-44.2); Mean Corpuscular Hemoglobin 31.2 pg (26-34); Mean Corpuscular Volume 94.5 fl (80-100); Mean Platelet Volume 10.1 fl (7.4-10.4); Monocytes Absolute Auto 0.8 K/mm3 (0.1-0.6); Monocytes Percent Auto 8.1 % (2.6-8.5); Neutrophils Absolute Auto 6.8 K/mm3 (1.3-6.7); Neutrophils Percent Auto 72.1 % (45.5-73.1); Platelet Count Result 211 k/mm3 (150-375); Red Blood Count 4.17 M/mm3 (4.6-6.20); White Blood Count 9.4 K/mm3 (4.5-10.0)
[2023-01-11 06:17] LABS: Anion Gap 6 mmol/L (8-16); Blood Urea Nitrogen 20 mg/dL (9-20); Calcium 8.4 mg/dL (8.4-10.2); Carbon Dioxide 25 mmol/L (22-30); Chloride 104 mmol/L (98-107); Estimated CRCL calculation 38 ml/min; Estimated Glomerular Filt Rate 53; Glucose 88 mg/dL (65-110); Potassium 3.9 mmol/L (3.4-5.0); Sodium 135 mmol/L (137-145)
[2023-01-11] MEDS: METOPROLOL TARTRATE 25 MG TABLET PO ×2 (08:28→21:33)
[2023-01-11] MEDS: AMIODARONE HCL 200 MG TABLET PO ×2 (08:30→17:22)
[2023-01-11] MEDS: CHOLECALCIFEROL 1,000 UNITS TABLET 1000 UNITS PO ×2 (08:30→17:22)
[2023-01-11] MEDS: APIXABAN 2.5 MG TABLET PO ×2 (08:31→21:32)
--- NOTE | 2023-01-11 10:33 | PC.NURSE ---
On 01/11/23, the student, [Betsy Mcmillan], provided care and completed [facility] documentation on this patient. I have reviewed the student's documentation and agree with the findings.
--- NOTE | 2023-01-11 18:22 | PM.IMPN ---
Progress Note: A&P Assessment and Plan (1) Generalized muscle weakness: Code(s): M62.81 - Muscle weakness (generalized) Status: Acute (2) Acute UTI: Code(s): N39.0 - Urinary tract infection, site not specified Status: Acute (3) Physical deconditioning: Code(s): R53.81 - Other malaise Status: Acute (4) Dehydration: Code(s): E86.0 - Dehydration Status: Acute (5) UTI (urinary tract infection): Code(s): N39.0 - Urinary tract infection, site not specified Status: Acute (6) KARLA (acute kidney injury): Code(s): N17.9 - Acute kidney failure, unspecified Status: Acute Plan improving KARLA, continue to trend. f/u urine cultures and continue ceftriaxone . PT OT evals being conducted for placement for rehab full code Subjective Date/time seen: 01/11/23 18:22 Interval history: NAOE. pt only complains of burning on urination. otherwise he feels ok Review of Systems Review of Systems: All systems reviewed & are unremarkable except as noted in HPI and below Exam Const: General: comfortable Eyes: Pupils: Equal, round and reactive pupils present Resp: Effort & Inspection: normal respiratory effort Auscultation: clear to auscultation bilaterally Cardio: Rate: regular rate Rhythm: regular rhythm Extrem: General: no edema Objective Data Vital Signs Vital Signs: Vital Signs - 24 hr 01/10/23 21:11 01/10/23 21:30 01/10/23 21:31 Temperature 98.0 F Pulse Rate 76 61 60 Respiratory Rate 22 H 21 H 25 H Blood Pressure 129/69 115/63 Pulse Oximetry 92 94 95 Oxygen Delivery 01/10/23 21:41 01/10/23 21:45 01/10/23 22:18 Temperature Pulse Rate 61 65 Respiratory Rate 27 H 20 Blood Pressure 127/74 Pulse Oximetry 95 98 98 Oxygen Delivery 01/10/23 22:30 01/10/23 22:45 01/10/23 23:11 Temperature Pulse Rate Respiratory Rate Blood Pressure Pulse Oximetry 95 96 97 Oxygen Delivery 01/10/23 23:13 01/10/23 23:14 01/10/23 23:15 Temperature Pulse Rate 61 61 60 Respiratory Rate 12 8 L 11 L Blood Pressure 109/65 107/67 Pulse Oximetry 94 96 95 Oxygen Delivery 01/10/23 23:16 01/10/23 23:30 01/10/23 23:31 Temperature Pulse Rate 60 60 60 Respiratory Rate 20 15 19 Blood Pressure 96/62 L Pulse Oximetry 96 95 95 Oxygen Delivery 01/10/23 23:45 01/10/23 23:46 01/11/23 00:00 Temperature Pulse Rate 61 60 62 Respiratory Rate 18 17 17 Blood Pressure 90/60 L 110/63 Pulse Oximetry 93 96 93 Oxygen Delivery 01/11/23 00:01 01/11/23 00:15 01/11/23 00:16 Temperature Pulse Rate 60 60 60 Respiratory Rate 17 14 16 Blood Pressure 108/63 Pulse Oximetry 94 93 92 Oxygen Delivery 01/11/23 00:30 01/11/23 00:31 01/11/23 00:45 Temperature Pulse Rate 61 62 63 Respiratory Rate 16 16 15 Blood Pressure 110/69 112/66 Pulse Oximetry 95 95 93 Oxygen Delivery 01/11/23 00:46 01/11/23 01:00 01/11/23 01:01 Temperature Pulse Rate 62 65 68 Respiratory Rate 12 16 21 H Blood Pressure 116/69 Pulse Oximetry 97 97 96 Oxygen Delivery 01/11/23 01:15 01/11/23 01:16 01/11/23 01:30 Temperature Pulse Rate 77 72 Respiratory Rate 20 16 Blood Pressure 119/85 122/63 Pulse Oximetry 95 Oxygen Delivery 01/11/23 01:31 01/11/23 02:54 01/11/23 03:46 Temperature 97.0 F L Pulse Rate 82 75 75 Respiratory Rate 12 20 20 Blood Pressure 128/78 Pulse Oximetry 96 96 Oxygen Delivery Room Air 01/11/23 05:23 01/11/23 08:28 01/11/23 08:30 Temperature 97.4 F L Pulse Rate 114 H 68 68 Respiratory Rate 20 Blood Pressure 116/65 Pulse Oximetry 98 Oxygen Delivery 01/11/23 08:00 01/11/23 08:00 01/11/23 14:10 Temperature 97.4 F L Pulse Rate 68 87 Respiratory Rate 16 Blood Pressure 119/74 109/60 Pulse Oximetry 96 Oxygen Delivery Room Air 01/11/23 17:22 Temperature Pulse Rate 61 Respiratory Rate Blood Pressure Pulse Oximet
[2023-01-11] MEDS: TAMSULOSIN HCL 0.4 MG CAPSULE PO (21:32)
[2023-01-11] MEDS: ATORVASTATIN 20 MG TABLET PO (21:33)
[2023-01-12] VITALS (12 sets, daily range): BP systolic 108–118; BP diastolic 61–68; PULSE 60–70; RESP 14–20; TEMP 36.4–36.9; O2SAT 96–99
[2023-01-12] MEDS: SODIUM CHLORIDE 0.9% IV 1,000 ML 75 ML IV CONT ×2 (06:40→19:26)
[2023-01-12] MEDS: APIXABAN 2.5 MG TABLET PO ×2 (08:31→21:13)
[2023-01-12] MEDS: AMIODARONE HCL 200 MG TABLET PO ×2 (08:31→16:44)
[2023-01-12] MEDS: CHOLECALCIFEROL 1,000 UNITS TABLET 1000 UNITS PO ×2 (08:31→16:44)
[2023-01-12] MEDS: METOPROLOL TARTRATE 25 MG TABLET PO ×2 (08:32→21:13)
[2023-01-12 08:56] LABS: Hematocrit 40.4 % (42.0-52.0); Hemoglobin 13.2 g/dL (14.0-18.0); Mean Corpuscular HGB Conc 32.7 g/dl (32-36); Mean Corpuscular Hemoglobin 31.4 pg (26-34); Mean Platelet Volume 10.1 fl (7.4-10.4); Platelet Count Result 201 k/mm3 (150-375); Red Blood Count 4.21 M/mm3 (4.6-6.20); Red Cell Distribution Width 13.5 % (11.5-14.5)
[2023-01-12 09:08] LABS: Anion Gap 4 mmol/L (8-16); Blood Urea Nitrogen 17 mg/dL (9-20); Calcium 8.5 mg/dL (8.4-10.2); Carbon Dioxide 24 mmol/L (22-30); Chloride 106 mmol/L (98-107); Estimated CRCL calculation 41 ml/min; Estimated Glomerular Filt Rate 58; Glucose 81 mg/dL (65-110); Potassium 4.2 mmol/L (3.4-5.0); Sodium 134 mmol/L (137-145)
--- NOTE | 2023-01-12 13:38 | PM.IMPN ---
Progress Note: A&P Assessment and Plan (1) Acute UTI: Code(s): N39.0 - Urinary tract infection, site not specified Status: Acute (2) Generalized muscle weakness: Code(s): M62.81 - Muscle weakness (generalized) Status: Acute (3) Physical deconditioning: Code(s): R53.81 - Other malaise Status: Acute Plan regarding UTI, he is improving, cont ceftraixone then de escalate tomorrow. f/u urine cultures. we are waiting on insurance auth for patient to be dc'ed to rehab. pt had recent admission with hard to treat a fib w/ RVR. he was finally sent home on an acceptable regimen. today he reports he thinks his meds are working too well and pushing his heart rate down causing his pacer to work too much. will place him on tele to assess whether this is the case and we can start to decrease the rate control meds. DNR Subjective Date/time seen: 01/12/23 13:38 Interval history: NAOE. pt is without complaints except he thinks his heart rate is too low . denies SOB or chest pain Review of Systems Review of Systems: All systems reviewed & are unremarkable except as noted in HPI and below Exam Const: General: comfortable and no acute distress Eyes: Pupils: Equal, round and reactive pupils present Neck: Neck: supple Resp: Effort & Inspection: normal respiratory effort Auscultation: clear to auscultation bilaterally Cardio: Rate: regular rate Rhythm: regular rhythm Heart sounds: no gallops, no murmurs and no rubs GI: Inspection: non-distended GI Palp: Yes Soft to palpation and No Tenderness to palpation present (GI) Auscultation: normal bowel sounds Extrem: General: no edema Objective Data Vital Signs Vital Signs: Vital Signs - 24 hr 01/11/23 14:10 01/11/23 17:22 01/11/23 20:03 Temperature 97.4 F L 97.3 F L Pulse Rate 87 61 60 Respiratory Rate 16 20 Blood Pressure 109/60 113/58 L Pulse Oximetry 96 95 Oxygen Delivery 01/11/23 21:33 01/11/23 20:00 01/12/23 05:31 Temperature 97.6 F Pulse Rate 60 60 63 Respiratory Rate 20 20 Blood Pressure 117/68 Pulse Oximetry 95 96 Oxygen Delivery Room Air 01/12/23 08:30 01/12/23 08:31 01/12/23 08:32 Temperature Pulse Rate 68 70 70 Respiratory Rate 17 Blood Pressure 118/62 Pulse Oximetry 96 Oxygen Delivery 01/12/23 08:44 01/12/23 10:07 01/12/23 08:30 Temperature Pulse Rate Respiratory Rate Blood Pressure Pulse Oximetry Oxygen Delivery Room Air Room Air Room Air Intake/Output Intake/Output: Intake & Output 01/09/23 01/10/23 01/11/23 01/12/23 23:59 23:59 23:59 23:59 Intake Total 1820 1610 Output Total 700 600 Balance 1120 1010 Meds/Results Medications: Active Medications Generic Name Dose Route Start Last Admin Trade Name Freq PRN Reason Stop Dose Admin Amiodarone HCl 200 mg 01/11/23 08:00 01/12/23 08:31 Amiodarone Hcl 200 Mg Tablet PO 200 mg BIDWM GRACE Administration Apixaban 2.5 mg 01/11/23 09:00 01/12/23 08:31 Apixaban 2.5 Mg Tablet PO 2.5 mg Q12HR GRACE Administration Atorvastatin Calcium 20 mg 01/11/23 21:00 01/11/23 21:33 Atorvastatin 20 Mg Tablet PO 20 mg HS GRACE Administration Calcium Citrate 1 tablet 01/11/23 09:00 01/12/23 08:32 Calcium Citrate 315 Mg/Vitamin D 250 Units Tab PO 1 tablet BID GRACE Administration Sodium Chloride 1,000 mls @ 75 mls/hr 01/11/23 00:15 01/12/23 06:40 Normal Saline Iv IV CONT 75 mls/hr .[id number] GRACE Administration Ceftriaxone Sodium 1 gm in 50 mls @ 100 mls/hr 01/11/23 22:00 01/11/23 22:02 Rocephin 1 Gm/Ns 50 Ml IVPB Infused Q24H GRACE Infusion Metoprolol Tartrate 25 mg 01/11/23 09:00 01/12/23 08:32 Metoprolol Tartrate 25 Mg Tablet PO 25 mg Q12HR GRACE Administration Glucos Sul 2kcl-Msm- 1 each 01/11/23 09:00 01/12/23 08:32 Chond-C-Mn [ XX 02/10/23 08:59 Not Given Glucosamine BID [facility] Chondroitin] 550-30- 1 Mg Ca Tamsulosin
[2023-01-12] MEDS: TAMSULOSIN HCL 0.4 MG CAPSULE PO (21:13)
[2023-01-12] MEDS: ATORVASTATIN 20 MG TABLET PO (21:13)
[2023-01-13] VITALS (16 sets, daily range): BP systolic 104–129; BP diastolic 55–66; PULSE 60–74; RESP 16–18; TEMP 36.4–36.7; O2SAT 95–99
[2023-01-13 04:58] LABS: Hematocrit 37.7 % (42.0-52.0); Hemoglobin 12.2 g/dL (14.0-18.0); Mean Corpuscular HGB Conc 32.4 g/dl (32-36); Mean Corpuscular Hemoglobin 31.3 pg (26-34); Mean Corpuscular Volume 96.7 fl (80-100); Mean Platelet Volume 10.5 fl (7.4-10.4); Platelet Count Result 202 k/mm3 (150-375); Red Cell Distribution Width 13.6 % (11.5-14.5); White Blood Count 6.7 K/mm3 (4.5-10.0)
[2023-01-13 05:09] LABS: Anion Gap 2 mmol/L (8-16); Blood Urea Nitrogen 22 mg/dL (9-20); Calcium 8.5 mg/dL (8.4-10.2); Carbon Dioxide 26 mmol/L (22-30); Chloride 106 mmol/L (98-107); Estimated CRCL calculation 33 ml/min; Estimated Glomerular Filt Rate 45; Glucose 97 mg/dL (65-110); Potassium 4.3 mmol/L (3.4-5.0); Sodium 134 mmol/L (137-145)
[2023-01-13] MEDS: SODIUM CHLORIDE 0.9% IV 1,000 ML 75 ML IV CONT (09:23)
[2023-01-13] MEDS: APIXABAN 2.5 MG TABLET PO ×2 (09:27→21:20)
[2023-01-13] MEDS: CHOLECALCIFEROL 1,000 UNITS TABLET 1000 UNITS PO ×2 (09:27→18:28)
[2023-01-13] MEDS: METOPROLOL TARTRATE 25 MG TABLET PO ×2 (09:33→21:20)
[2023-01-13] MEDS: AMIODARONE HCL 200 MG TABLET PO ×2 (09:33→18:28)
--- NOTE | 2023-01-13 15:34 | PM.IMPN ---
Progress Note: A&P Assessment and Plan (1) Acute UTI: Code(s): N39.0 - Urinary tract infection, site not specified Status: Acute (2) Generalized muscle weakness: Code(s): M62.81 - Muscle weakness (generalized) Status: Acute (3) Physical deconditioning: Code(s): R53.81 - Other malaise Status: Acute (4) KARLA (acute kidney injury): Code(s): N17.9 - Acute kidney failure, unspecified Status: Acute (5) CKD (chronic kidney disease): Code(s): N18.9 - Chronic kidney disease, unspecified Status: Acute (6) Paresis of left vocal cord: Code(s): J38.01 - Paralysis of vocal cords and larynx, unilateral Status: Acute (7) CHF (congestive heart failure): Code(s): I50.9 - Heart failure, unspecified Status: Acute (8) Pacemaker: Code(s): Z95.0 - Presence of cardiac pacemaker Status: Acute Plan 82M w/ PMH IRIS on CPAP, HLD, BPH, a fib on eliquis, PPM, obesity, paresis of left vocal cord, HFrEF, CKD stage 3a presented on 01/11 with wekaness and admitted for UTI and KARLA 1) weakness 2/2 UTI and KARLA - weakness improved. PT OT recommending rehab. pending clearance - UTI. urine culture no helpful. ceftriaxone stopped, treat with bactrim for another 3 days. 2) KARLA on CKD3a - sCR again elevated on 01/13. giving NS @ 100ml/hr but to stop early in AM, if he has any respiratory distress or no improvement in KARLA will have to forgo aggressive correction and accept a new baseline here. 3) IRIS - cont cpap 4) BPH - he will follow with urology outpatient 5) a fib - rate controlled. cont telemetry - cont eliquis, amiodarone and metoprolol 6) HFrEF - mild crackles at lungs. monitor closely while giving fluids. compensated otherwise. FEN: fluids, cardiac diet GI prophylaxis: not indicated DVT prophylaxis: eliquis Lines: pIV Code Status: DNR Dispo: stable. pending auth to rehab More than 35 minutes spent on chart review, patient interaction and assessment and plan. Subjective Date/time seen: 01/13/23 15:34 Interval history: NAOE. patient denies bladder issues, denies sob. no complaints Review of Systems Review of Systems: All systems reviewed & are unremarkable except as noted in HPI and below Exam Const: General: comfortable and no acute distress Eyes: Pupils: Equal, round and reactive pupils present Neck: Neck: supple Resp: Effort & Inspection: normal respiratory effort Auscultation: crackles (bibasilar) Cardio: Rate: regular rate Rhythm: regular rhythm Heart sounds: no gallops, no murmurs and no rubs GI: Inspection: non-distended GI Palp: Yes Soft to palpation Extrem: General: no edema Objective Data Vital Signs Vital Signs: Vital Signs - 24 hr 01/12/23 16:00 01/12/23 16:42 01/12/23 16:44 Temperature Pulse Rate 63 64 64 Respiratory Rate 18 Blood Pressure 118/64 Pulse Oximetry Oxygen Delivery 01/12/23 20:07 01/12/23 21:13 01/12/23 20:00 Temperature 98.5 F Pulse Rate 60 62 62 Respiratory Rate 14 Blood Pressure 108/61 Pulse Oximetry 99 Oxygen Delivery 01/13/23 00:00 01/13/23 04:00 01/13/23 04:55 Temperature 97.6 F Pulse Rate 60 60 61 Respiratory Rate 18 Blood Pressure 129/66 Pulse Oximetry 99 Oxygen Delivery 01/12/23 22:00 01/13/23 09:20 01/13/23 09:33 Temperature Pulse Rate 64 64 Respiratory Rate 16 Blood Pressure 104/64 Pulse Oximetry 97 Oxygen Delivery CPAP 01/13/23 09:33 01/13/23 08:00 01/13/23 09:30 Temperature Pulse Rate 64 60 Respiratory Rate Blood Pressure Pulse Oximetry 97 Oxygen Delivery Room Air 01/13/23 12:00 01/13/23 14:00 Temperature 98.0 F Pulse Rate 68 62 Respiratory Rate 16 Blood Pressure 106/55 L Pulse Oximetry 98 Oxygen Delivery Intake/Output Intake/Output: Intake & Output 01/10/23 01/11/23 01/12/23 01/13/23 23:59 23:59 23:59 23:59 Intake Total 1820 3420 1530 Output
[2023-01-13] MEDS: SODIUM CHLORIDE 0.9% IV 1,000 ML 100 ML IV CONT (18:28)
[2023-01-13] MEDS: ATORVASTATIN 20 MG TABLET PO (21:20)
[2023-01-13] MEDS: TAMSULOSIN HCL 0.4 MG CAPSULE PO (21:20)
[2023-01-13] MEDS: SULFAMETHOXAZOLE/TRIMETHOPRIM 800/160 MG DS TABLET 1 TAB PO (21:20)
[2023-01-14] VITALS (7 sets, daily range): BP systolic 112–126; BP diastolic 62–67; PULSE 60–67; RESP 16–18; TEMP 36.3–36.4; O2SAT 97–100
[2023-01-14] MEDS: SODIUM CHLORIDE 0.9% IV 1,000 ML 100 ML IV CONT (02:46)
[2023-01-14] MEDS: ACETAMINOPHEN 500 MG TABLET 1000 MG PO (05:24)
[2023-01-14 05:33] LABS: Hematocrit 38.2 % (42.0-52.0); Hemoglobin 12.5 g/dL (14.0-18.0); Mean Corpuscular HGB Conc 32.7 g/dl (32-36); Mean Corpuscular Hemoglobin 31.2 pg (26-34); Mean Corpuscular Volume 95.3 fl (80-100); Mean Platelet Volume 10.4 fl (7.4-10.4); Platelet Count Result 194 k/mm3 (150-375); Red Blood Count 4.01 M/mm3 (4.6-6.20); Red Cell Distribution Width 13.3 % (11.5-14.5); White Blood Count 9.7 K/mm3 (4.5-10.0)
[2023-01-14 05:46] LABS: Anion Gap 4 mmol/L (8-16); Blood Urea Nitrogen 17 mg/dL (9-20); Calcium 8.5 mg/dL (8.4-10.2); Carbon Dioxide 22 mmol/L (22-30); Chloride 107 mmol/L (98-107); Estimated CRCL calculation 49 ml/min; Estimated Glomerular Filt Rate > 60; Glucose 100 mg/dL (65-110); Potassium 4.3 mmol/L (3.4-5.0); Sodium 133 mmol/L (137-145)
[2023-01-14] MEDS: CHOLECALCIFEROL 1,000 UNITS TABLET 1000 UNITS PO (08:44)
[2023-01-14] MEDS: SULFAMETHOXAZOLE/TRIMETHOPRIM 800/160 MG DS TABLET 1 TAB PO (08:44)
[2023-01-14] MEDS: APIXABAN 2.5 MG TABLET PO (08:44)
[2023-01-14] MEDS: METOPROLOL TARTRATE 25 MG TABLET PO (08:44)
[2023-01-14] MEDS: AMIODARONE HCL 200 MG TABLET PO (08:44)
--- NOTE | 2023-01-14 12:48 | PC.NURSE ---
1200 telemetry, HR-60, [place]- 0.16, QRS- 0.10, Rhythm- Sinus Rhythm/ Paced- Implanted
--- NOTE | 2023-01-14 13:22 | PM.DS ---
DS: Admitting Diagnosis Discharge Date 01/14/23 Admitting Diagnosis UTi and weakness DS: Discharge Diagnosis Discharge Diagnosis (1) CHF (congestive heart failure): Code(s): I50.9 - Heart failure, unspecified Status: Acute (2) Pacemaker: Code(s): Z95.0 - Presence of cardiac pacemaker Status: Acute (3) Paresis of left vocal cord: Code(s): J38.01 - Paralysis of vocal cords and larynx, unilateral Status: Acute (4) CKD (chronic kidney disease): Code(s): N18.9 - Chronic kidney disease, unspecified Status: Acute (5) Generalized muscle weakness: Code(s): M62.81 - Muscle weakness (generalized) Status: Acute (6) Acute UTI: Code(s): N39.0 - Urinary tract infection, site not specified Status: Acute (7) Physical deconditioning: Code(s): R53.81 - Other malaise Status: Acute (8) Dehydration: Code(s): E86.0 - Dehydration Status: Acute DS: Summary Hospital Course Hospital Course: 82M w/ PMH IRIS on CPAP, HLD, BPH, a fib on eliquis, PPM, obesity, paresis of left vocal cord, HFrEF, CKD stage 3a presented on 01/11 with weakness and admitted for UTI and KARLA. weakness improved and he will be dc'ed today 01/14 to [facility] for rehab. he was treated with ceftriaxone for UTI and will be dc'ed on another 3 days of bactrim. His KARLA improved after fluid resuscitation. He will be discharged on his small home dosing lasix as he is tolerating PO intake now with the CHF recommendations of fluid restriction and low salt diet. he knows to report any symptoms of fluid overload to a nurse or doctor immediately. he is to track his daily weights and bring them to PCP or sample collector. no other issues while inpatient and he remained DNR while admitted. More than 30 minutes spent on discharge planning and documentation. Time Spent with Patient Time attestation: Total time spent providing and/or coordinating discharge services: Exam Const: General: cooperative and no acute distress Resp: Effort & Inspection: normal respiratory effort Auscultation: clear to auscultation bilaterally Cardio: Rate: regular rate Rhythm: regular rhythm Heart sounds: S1 normal heart sound present and S2 normal heart sound present GI: GI Palp: No abdominal tenderness Auscultation: normal bowel sounds DS: Data Data Completed and Pending Labs on day of discharge: Labs from last 24 hours 01/14/23 05:20 WBC 9.7 RBC 4.01 L Hgb 12.5 L Hct 38.2 L MCV 95.3 MCH 31.2 MCHC 32.7 RDW 13.3 Plt Count 194 MPV 10.4 Sodium 133 L Potassium 4.3 Chloride 107 Carbon Dioxide 22 Anion Gap 4 L BUN 17 Creatinine 1.00 Estim Creat Clear Calc 49 Estimated GFR > 60 Glucose 100 Calcium 8.5 Discharge Plan Discharge Attending physician on discharge: Lela Robledo Consulting providers: Be Melchor Discharging Clinician: Lela Robledo Patient Disposition: SNF Activity: july shower Diet: heart healthy Discharge Instructions: track daily weights, low sodium (2G) diet per day, 1800ml fluid restriction per day. report daily weights to primary care physician and sample collector Patient Instructions: Apixaban (By mouth) Stand Alone Forms: General Discharge Information Follow-up/Referrals: Mario,Joseph Campbell MD [Primary Care Provider] - 2 Weeks Discharge Medications: New sulfamethoxazole-trimethoprim 800-160 mg Tablet 1 tablet PO Q12HR 3 Days Qty: 6 0RF Continued tamsulosin 0.4 mg capsule 0.4 mg PO HS calcium citrate-vitamin D3 [Calcium Citrate + D] 315 mg-5 mcg (200 unit) Tablet 315 tablet PO BID cholecalciferol (vitamin D3) [Vitamin D3] 25 mcg (1,000 unit) Tablet 25 mcg PO BID Glucosamine Chondroitin 550-30-1 mg Capsule 550 cap PO BID amiodarone [Pacerone] 200 mg Tablet 200 mg PO BID 30 Days Qty: 60 0RF metoprolol tartrate 25 mg Tablet 25 mg PO Q12HR 30 Days Qty: 60 0RF E
[2023-01-14 15:30] LABS: SARS-CoV-2 RNA PCR Negative (Negative)
== END 2023-01-14 16:45 | DRG 683 ==
LOC: ANHED 21:41 → ANH2MED 01-11 02:30
PROVIDERS: Emergency Medicine; Admitting Provider Student in an Organized Health Care Education/Training Program; Emergency Provider Physician Assistant; PCP Internal Medicine Geriatric Medicine; Visit Provider General Practice
DX: N17.9 Acute kidney failure, unspecified (principal); N39.0 Urinary tract infection, site not specified; N18.31 Chronic kidney disease, stage 3a; E86.0 Dehydration; R53.81 Other malaise; N40.0 Benign prostatic hyperplasia without lower urinary tract symptoms; I48.91 Unspecified atrial fibrillation; Z66 Do not resuscitate; E78.5 Hyperlipidemia, unspecified; G47.33 Obstructive sleep apnea (adult) (pediatric); J38.01 Paralysis of vocal cords and larynx, unilateral; Z20.822 Contact with and (suspected) exposure to COVID-19; Z95.0 Presence of cardiac pacemaker; Z79.01 Long term (current) use of anticoagulants
CPT/HCPCS: 36415; 71046; 73070; 74176; 80048; 80053; 81001; 83735; 83880; 84100; 85025; 85027; 85610; 85730; 87086; 87635; 87636; 93005; 96365; 97161; 97165; 99285; A9270; G0378; J0696; J7030

== ENCOUNTER 2023-01-30 07:48 | Emergency (ER) | payer MEDICARE, BC, SELFPAY ==
[2023-01-30] VITALS (34 sets, daily range): BP systolic 109–153; BP diastolic 57–90; PULSE 60–75; RESP 12–22; TEMP 36.7; O2SAT 93–99
--- NOTE | ~2023-01-30 | CT_ITS ---
EXAMINATION: CT brain wo con DATE: 01/30/2023 08:46 INDICATION: Head injury. TECHNIQUE: Computed tomography (CT) of the head was performed without intravenous contrast. The mA wa s adjusted according to patient size. Iterative reconstruction technique was employed. The dose-lengt h product was 681.00 mGy-cm. COMPARISON: None FINDINGS: There are scattered areas of low attenuation in the cerebral white matter, which is within normal limits for the patient's age. There is no intracranial hemorrhage, acute infarction, or abnorm al intracranial mass lesion. The ventricles are normal in size. There is mucosal thickening in the pa ranasal sinuses. The mastoid air cells are normal. IMPRESSION: 1. Normal aging brain. Reviewed, dictated and finalized at location E. RHOUSE TENDER IMPRESSION: 1. Normal aging brain.
--- NOTE | ~2023-01-30 | XR_ITS ---
XR knee LT 3V 01/30/2023 08:55 Indication: Left knee pain after fall Procedure: 3 views left knee Comparison: No prior studies for comparison. 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 There is chondrocalcinosis. No significant joint effusion. There is an unfused tibial apophysis. There is atherosclerosis. No acute fracture or traumatic malalignment. No significant joint effusion. Impression: 1: No acute fracture. Reviewed, dictated and finalized at location L. THERAPIST Impression: 1: No acute fracture.
--- NOTE | 2023-01-30 07:53 | ECG_ITS ---
Measurements Intervals [place] Rate: 68 P: 55 [place]: 172 QRS: 15 QRSD: 154 T: 75 QT: 467 QTc: 498 Interpretive Statements SINUS RHYTHM LEFT BUNDLE BRANCH BLOCK BASELINE ARTIFACT- I, II, AVR, AVL, AVF, V1, V6 ABNORMAL ECG COMPARED TO ECG 01/10/2023 21:28:28 SINUS RHYTHM NOW PRESENT Electronically Signed On 01-30-2023 8:03:27 DUPLICATOR PUNCH SET UP OPERATOR by Henry Jerez D.O.
--- NOTE | 2023-01-30 07:55 | ED.FALL ---
HPI - Fall General Chief Complaint: Fall Stated Complaint: fall this AM, lightheaded x days History of Present Illness HPI Narrative: 82-year-old male presenting to the ED from local shelter for evaluation of intermittent lightheadedness. Patient reports over the last 4 days he has had increase lightheadedness. Patient reports he does have some baseline balance issues but feels they are worsening. Patient states he did have follow-up with physical therapy and this did not help his balance issues. Patient was standing to walk to the bathroom this morning when he had a ground level fall landing on his knees. Patient did strike his head on the wall but denies any loss of consciousness. Patient does complain of some left knee pain Related Data Home Medications Medication Instructions Recorded Confirmed calcium citrate 315 mg-vitamin D3 315 tablet PO BID 12/20/22 01/11/23 5 mcg (200 unit) tablet (Calcium Citrate + D) cholecalciferol (vitamin D3) 25 25 mcg PO BID 12/20/22 01/11/23 mcg (1,000 unit) tablet (Vitamin D3) glucosamine sulf dipot 550 cap PO BID 12/20/22 01/11/23 chlr,msm,chond 550 mg-C 30 mg-jaleel 1 mg capsule (Glucosamine Chondroitin) tamsulosin 0.4 mg capsule 0.4 mg PO HS 12/20/22 01/11/23 atorvastatin 20 mg tablet 20 mg PO HS 01/11/23 01/11/23 Allergies Allergy/AdvReac Type Severity Reaction Status Date / Time carvedilol Allergy Unknown Unknown Verified 01/30/23 08:18 codeine AdvReac Unknown Hallucinati Verified 01/30/23 08:18 ng Review of Systems Review of Systems: All systems reviewed & are unremarkable except as noted in HPI and below [facility] Past Medical History Medical History (Updated 01/30/23 @ 12:25 by Jhonathan Silva MD) Atrial fibrillation BPH (benign prostatic hyperplasia) CHF (congestive heart failure) CKD (chronic kidney disease) HLD (hyperlipidemia) [place] (hard of hearing) IRIS on CPAP Pacemaker Paresis of left vocal cord Surgical History Surgical History History of pacemaker Family History Family History (Updated 01/11/23 @ 03:19 by Keya Jimenez RN) Father Abdominal aneurysm Son Kidney carcinoma Mother Hypertension Social History Social History Social History: Currently lives at home alone. being cared for at a facility. 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 Surrogate decision maker: Ronnie Durand, jay. DNR. Smoking status: Never smoker Alcohol intake: never Substance use: never Lack of Transportation: YES Lack of Food: Never True Current Housing: I Have Housing Concerned About Future Housing: No Difficulty Paying Gas/Electric Bills: No Difficulty Paying for Meds: No Currently Unemployed: No Education: High School Diploma/GED Difficulty w/ Childcare or Family Care: No Spiritual care concerns: No Exam Narrative: APPEARANCE: Well appearing, no pain, no distress, well-nourished. HEAD: normocephalic, atraumatic. EYES: PERRLA/EOMI, conjunctivae clear. NOSE: Normal no drainage EARS:TMS clear with good light reflex. THROAT: Pharynx clear, no exudate. NECK: Supple. No adenopathy, no masses. RESPIRATORY: Airway patent, respirations nonlabored. Clear to auscultation bilaterally, no rales, rhonchi, wheezing. CARDIOVASCULAR: Regular rate and rhythm without murmurs rubs or gallops. ABDOMINAL: Soft, nontender, nondistended, normal bowel sounds MUSCULOSKELETAL: Moves all extremities. Strength/ROM intact, No edema, No calf tenderness. NEURO: Alert. Cranial nerves II through XII intact. grossly intact SKIN: Warm, dry. Normal Color Course Course Emergency Course: 82-year-old male presenting to the ED for evaluation of intermittent lightheadedness. Patient did test positive for COVID. Head CT was negative. Knee x-ray was negative. The patient does feel improved with treatment. Patient was
[2023-01-30 08:13] LABS: Basophils Percent Auto 0.1 % (0.2-1.2); Hematocrit 38.2 % (42.0-52.0); Hemoglobin 12.6 g/dL (14.0-18.0); Immature Granulocyte Absolute 0.14 K/mm3 (0.00-0.031); Immature Granulocyte Percent A 1.7 % (0-0.5); Immature Platelet Fraction Pct 6.6 % (0.9-11.2); Lymphocytes Absolute Auto 1.34 K/mm3 (0.9-3.2); Lymphocytes Percent Auto 15.9 % (18.3-44.2); Mean Corpuscular Hemoglobin 31.3 pg (26-34); Mean Corpuscular Volume 94.8 fl (80-100); Mean Platelet Volume 10.9 fl (7.4-10.4); Monocytes Absolute Auto 0.9 K/mm3 (0.1-0.6); Monocytes Percent Auto 11.1 % (2.6-8.5); Neutrophils Percent Auto 71.2 % (45.5-73.1); Platelet Count Result 122 k/mm3 (150-375); Red Blood Count 4.03 M/mm3 (4.6-6.20); Red Cell Distribution Width 13.7 % (11.5-14.5); White Blood Count 8.4 K/mm3 (4.5-10.0)
[2023-01-30 08:19] LABS: Alanine Aminotransferase 26 U/L (6-50); Albumin Level 3.7 g/dL (3.5-5.1); Alkaline Phosphatase 66 U/L (38-126); Anion Gap 10 mmol/L (8-16); Aspartate Amino Transferase 29 U/L (17-59); Bilirubin,Total 1.2 mg/dL (0.2-1.3); Blood Urea Nitrogen 13 mg/dL (9-20); Calcium 8.4 mg/dL (8.4-10.2); Carbon Dioxide 24 mmol/L (22-30); Chloride 99 mmol/L (98-107); Estimated CRCL calculation 61 ml/min; Estimated Glomerular Filt Rate > 60; Glucose 115 mg/dL (65-110); Sodium 133 mmol/L (137-145)
[2023-01-30 08:28] LABS: Appearance Urine Cloudy (Clear); Bacteria Urine None Seen /hpf; Bilirubin Urine Negative (Negative); Blood Urine Negative (Negative); Color Urine Yellow (Yellow); Glucose Urine UA Negative (Negative); Ketones Urine Negative (Negative); Leukocyte Esterase Ur Negative LEU/UL (Negative); Nitrate Urine Negative (Negative); Non Pathogenic Casts 0-2; Protein Urine Trace mg/dL (Negative); RBC Urine 0-2 /hpf (0-2); Specific Grav Ur 1.016 (1.001-1.035); Squamous Epithelial Cell Urine None seen /hpf (Few); WBC Urine 0-5 /hpf; pH Urine 7.5 (5.0-9.0)
[2023-01-30 08:29] LABS: Add Urine Microscopic? YES
--- NOTE | 2023-01-30 10:51 | PC.NURSE ---
attempted to walk pt at this time. pt sat on side of bed and felt lightheaded then stood up and felt lightheaded and dizzy. pt stated I'm afraid to walk
[2023-01-30] MEDS: MECLIZINE HCL 25 MG TABLET PO (11:02)
[2023-01-30 11:12] LABS: Influenza A QL RT-PCR Negative (Negative); Influenza B QL RT-PCR Negative (Negative); RSV RNA, RT-PCR Negative (Negative); SARS-CoV-2 RNA PCR Positive (Negative)
== END 2023-01-30 13:32 ==
PROVIDERS: Emergency Provider Emergency Medicine; PCP Internal Medicine Geriatric Medicine
DX: U07.1 COVID-19 (principal); I48.91 Unspecified atrial fibrillation; N40.0 Benign prostatic hyperplasia without lower urinary tract symptoms; I50.9 Heart failure, unspecified; G47.30 Sleep apnea, unspecified; Z95.0 Presence of cardiac pacemaker
CPT/HCPCS: 36415; 70450; 73562; 80053; 81001; 85025; 85055; 87637; 93005; 99284; A9270

== ENCOUNTER 2023-02-27 09:01 | Inpatient (IN) | payer MEDICARE, BC, SELFPAY ==
[2023-02-27] VITALS (13 sets, daily range): BP systolic 105–153; BP diastolic 60–93; PULSE 64–98; RESP 14–20; TEMP 36.4–36.8; O2SAT 96–100; BMI 28.5
--- NOTE | ~2023-02-27 | CT_ITS ---
Non-contrast Head CT History: Dizziness, headache COMPARISON: 01/30/2023 Technique: Axial non-contrast imaging of the brain was performed. Dose reduction technique was used on this scan by utilizing automated exposure control and iterative reconstruction technique. The dose -length product (DLP) was 681.00 mGy-cm. Findings: There is no evidence of intracranial hemorrhage, mass lesion, or acute infarct. Brain par enchyma appears normal. The ventricles and subarachnoid spaces are normal in size. The calvarium ap pears normal. The visualized paranasal sinuses and mastoid air cells are clear. Impression: No significant abnormality seen. Reviewed, dictated and finalized at location . [employer] Impression: No significant abnormality seen.
--- NOTE | ~2023-02-27 | CT_ITS ---
EXAMINATION: CTA brain carotid DATE: 02/27/2023 15:43 INDICATION: Dizziness. Headache. TECHNIQUE: Computed tomographic angiography (CTA) of the head was performed with 100 mL Omnipaque-350 intravenous contrast. CTA of the neck was performed with intravenous contrast. Automated exposure co ntrol and iterative reconstruction technique were employed. The dose-length product was 1138.73 mGy-c m. Maximum intensity projection and volume rendered 3D-reconstructions were created by the [employer] on a separate workstation. COMPARISON: Head CT 02/27/2023 FINDINGS: HEAD CTA: There is no intracranial hemorrhage, acute infarction, or abnormal intracranial mass lesion . The ventricles are normal in size. There are likely changes of ocular lens replacement surgeries. T here is mucosal thickening in the paranasal sinuses. The mastoid air cells are normal. The vertebral arteries are codominant. There is no significant stenosis of basilar artery or the posterior cerebral arteries. There is no significant stenosis of the intracranial internal carotid arteries or anterior or middle cerebral arteries. Anterior communicating artery is normal. The posterior communicating ar teries are normal. There is no aneurysm. NECK CTA: The lungs demonstrate mild emphysema. There are no pathologically enlarged lymph nodes. The re is a left chest pacer. There is no significant stenosis of the vertebral arteries. There is plaque in the proximal internal carotid arteries. There is 0% stenosis of the proximal right internal carot id artery relative to normal distal artery lumen diameter (NASCET criteria). There is 14% stenosis of the proximal left internal carotid artery relative to normal distal artery lumen diameter. There is severe cervical spondylosis. IMPRESSION: 1. Normal brain. 2. No aneurysm or significant intracranial arterial stenosis. 3. 0% stenosis of the proximal right internal carotid artery relative to normal distal artery lumen d iameter (NASCET criteria). 4. 14% stenosis of the proximal left internal carotid artery relative to normal distal artery lumen d iameter. 5. Mild emphysema. Reviewed, dictated and finalized at location [facility] IMPRESSION: 1. Normal brain. 2. No aneurysm or significant intracranial arterial stenosis. 3. 0% stenosis of the proximal right internal carotid artery relative to normal distal artery lumen diameter (NASCET criteria). 4. 14% stenosis of the proximal left internal carotid artery relative to normal distal artery lumen diameter. 5. Mild emphysema.
--- NOTE | 2023-02-27 09:09 | ECG_ITS ---
Measurements Intervals [place] Rate: 78 P: 31 MT: 143 QRS: -24 QRSD: 154 T: 104 QT: 442 QTc: 505 Interpretive Statements SINUS RHYTHM LEFT BUNDLE BRANCH BLOCK [120+ ms QRS DURATION, 80+ ms Q/S IN V1/V2, 85+ ms R IN I/aVL/V5/V6] COMPARED TO ECG 01/30/2023 07:58:54 NO SIGNIFICANT CHANGES Electronically Signed On 02-27-2023 13:53:52 PURCHASING DEPARTMENT CLERK by Anna Fierro M.D.
--- NOTE | 2023-02-27 09:25 | ED.DIZZY ---
HPI - Dizziness General Chief Complaint: Dizziness <Frederick Her APRN - Last Filed: 02/27/23 14:28> Stated Complaint: DIZZY <Frederick Her APRN - Last Filed: 02/27/23 14:28> Time Seen by Provider: 02/27/23 09:21 <Frederick Her APRN - Last Filed: 02/27/23 14:28> Source: patient <Frederick Her APRN - Last Filed: 02/27/23 14:28> Mode of arrival: ambulatory <Frederick Her APRN - Last Filed: 02/27/23 14:28> Limitations: no limitations <Frederick Her APRN - Last Filed: 02/27/23 14:28> History of Present Illness HPI Narrative: Socrates is an 82-year-old male patient presenting to the ER today-brought in by EMS for complaints of dizziness. He reports he was trying to get out of bed this morning and felt as the room was spinning and felt as though he was going to slip out of bed. He states he then put his feet back up and gotten to the middle of it and call for help. States he has had some dizziness ongoing since December 10. Has seen water treatment plant supervisor and did not get any answers at that time as to why he was dizzy. States he is also having an occipital headache-rates the pain 7/10. Denies any chest pain, shortness of breath, bloody stools, belly pain, or hematuria. <Frederick Her APRN - Last Filed: 02/27/23 14:28> Related Data Home Medications: Home Medications Medication Instructions Recorded Confirmed calcium citrate 315 mg-vitamin D3 315 tablet PO BID 12/20/22 02/27/23 5 mcg (200 unit) tablet (Calcium Citrate + D) cholecalciferol (vitamin D3) 25 25 mcg PO BID 12/20/22 02/27/23 mcg (1,000 unit) tablet (Vitamin D3) glucosamine sulf dipot 550 cap PO BID 12/20/22 02/27/23 chlr,msm,chond 550 mg-C 30 mg-jaleel 1 mg capsule (Glucosamine Chondroitin) tamsulosin 0.4 mg capsule 0.4 mg PO HS 12/20/22 02/27/23 atorvastatin 20 mg tablet 20 mg PO HS 01/11/23 02/27/23 acetaminophen 500 mg tablet 1,000 mg PO Q6H PRN Pain 02/27/23 02/27/23 <Frederick Her APRN - Last Filed: 02/27/23 14:28> Allergies/Adverse Reactions: Allergies Allergy/AdvReac Type Severity Reaction Status Date / Time carvedilol Allergy Unknown Unknown Verified 02/27/23 17:34 codeine AdvReac Unknown Hallucinati Verified 02/27/23 17:34 ng <Frederick Her APRN - Last Filed: 02/27/23 14:28> Review of Systems Review of Systems: Pertinent positives per HPI. Patient denies any fever, chills, rash, visual changes, cough, runny nose, sore throat, shortness of breath, chest pain, palpitations, nausea, vomiting, diarrhea, constipation, abdominal pain. <Frederick Her APRN - Last Filed: 02/27/23 14:28> FOR[facility]LY [facility], [facility] Past Medical History Medical History: Medical History Atrial fibrillation BPH (benign prostatic hyperplasia) CHF (congestive heart failure) CKD (chronic kidney disease) HLD (hyperlipidemia) [place] (hard of hearing) IRIS on CPAP Pacemaker Paresis of left vocal cord <Frederick Her APRN - Last Filed: 02/27/23 14:28> Surgical History Surgical History: Surgical History History of pacemaker <Frederick Her APRN - Last Filed: 02/27/23 14:28> Family History Family History: Family History Father Abdominal aneurysm Son Kidney carcinoma Mother Hypertension <Frederick Her APRN - Last Filed: 02/27/23 14:28> Social History Social History: Social History Social History: Currently lives at home alone. being cared for at a facility. 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 Surrogate decision maker: Ronnie Durand, son. DNR. Smoking status: Former smoker Alcohol intake: former Substance use: never Do You Feel Safe in your Home?: Yes Lack of Transportation: No [place]
[2023-02-27 09:45] LABS: Basophils Percent Auto 0.5 % (0.2-1.2); Eosinophils Absolute Auto 0.2 K/mm3 (0-0.3); Eosinophils Percent Auto 2.4 % (0-4.4); Hematocrit 40.3 % (42.0-52.0); Hemoglobin 13.2 g/dL (14.0-18.0); Immature Granulocyte Absolute 0.13 K/mm3 (0.00-0.031); Immature Granulocyte Percent A 2.1 % (0-0.5); Lymphocytes Absolute Auto 1.42 K/mm3 (0.9-3.2); Lymphocytes Percent Auto 22.6 % (18.3-44.2); Mean Corpuscular HGB Conc 32.8 g/dl (32-36); Mean Corpuscular Hemoglobin 31.1 pg (26-34); Mean Platelet Volume 10.7 fl (7.4-10.4); Monocytes Absolute Auto 0.6 K/mm3 (0.1-0.6); Monocytes Percent Auto 9.9 % (2.6-8.5); Neutrophils Absolute Auto 3.9 K/mm3 (1.3-6.7); Neutrophils Percent Auto 62.5 % (45.5-73.1); Platelet Count Result 141 k/mm3 (150-375); Red Blood Count 4.24 M/mm3 (4.6-6.20); Red Cell Distribution Width 14.6 % (11.5-14.5); White Blood Count 6.3 K/mm3 (4.5-10.0)
[2023-02-27 09:51] LABS: Appearance Urine Clear (Clear); Bacteria Urine None Seen /hpf; Bilirubin Urine Negative (Negative); Blood Urine Negative (Negative); Color Urine Yellow (Yellow); Glucose Urine UA Negative (Negative); Ketones Urine Negative (Negative); Leukocyte Esterase Ur Trace LEU/UL (Negative); Nitrate Urine Negative (Negative); Non Pathogenic Casts 0-2; Protein Urine Negative (Negative); RBC Urine 0-2 /hpf (0-2); Specific Grav Ur 1.005 (1.001-1.035); Squamous Epithelial Cell Urine None seen /hpf (Few); Urobilinogen Urine 0.2 mg/dL (<2.0); WBC Urine 0-5 /hpf; pH Urine 7.5 (5.0-9.0)
[2023-02-27 09:55] LABS: INR 1.1
[2023-02-27 09:56] LABS: Partial Thromboplastin Time 33.3 SECONDS (22.3-36.8)
[2023-02-27 10:00] LABS: Add Urine Microscopic? YES
[2023-02-27 10:07] LABS: Alanine Aminotransferase 36 U/L (6-50); Albumin Level 3.6 g/dL (3.5-5.1); Alkaline Phosphatase 125 U/L (38-126); Anion Gap 1 mmol/L (8-16); Aspartate Amino Transferase 32 U/L (17-59); Bilirubin,Total 1.2 mg/dL (0.2-1.3); Blood Urea Nitrogen 15 mg/dL (9-20); Carbon Dioxide 23 mmol/L (22-30); Chloride 109 mmol/L (98-107); Estimated CRCL calculation 55 ml/min; Estimated Glomerular Filt Rate > 60; Glucose 95 mg/dL (65-110); Potassium 3.9 mmol/L (3.4-5.0); Sodium 133 mmol/L (137-145)
[2023-02-27 10:17] LABS: NT Pro B Type Natriuretic Pept 366 pg/mL (19.9-100); Troponin I < 0.012 ng/mL (0.000-0.034)
[2023-02-27] MEDS: SODIUM CHLORIDE 0.9% IV 1,000 ML 150 ML IV CONT (10:27)
[2023-02-27] MEDS: MECLIZINE HCL 25 MG TABLET PO (10:55)
--- NOTE | 2023-02-27 13:34 | PM.IMHP ---
H&P: HPI History of Present Illness Date/Time: 02/27/23 13:34 Chief Complaint: Dizziness Narrative: 82 y/o M presents here with dizziness with PMH of AFib, BPH, CHF, CKD, HLD, [place], IRIS on CPAP, pacemaker, and paresis of vocal cord. Patient has been seen here 3 times since Dec. Initially admitted between 12/20-12/27 for new AFib RVR with failed cardioversion x3 but was ultimately controlled with medication changes, EF of 30-35% and treated with improvement to 50-55% and d/c'd on daily lasix, and dysphagia likely secondary to paresis of 1 of the vocal cords with recommendations to implement dietary modifications. Then returned on 01/10 and was admitted for generalized weakness with almost fall, family voiced concerns that patient is not drinking much and found to have KARLA - Lasix changed to PRN and found to have a UTI. Returned on 01/30 for continued intermittent lightheadedness that had been present since Dec with underlying baseline balance issues. ED workup revealed patient to be COVID+ with a negative head CT, he was discharged home. Today, he returns with complaints of dizziness that has been intermittent over the last few days but worse today. Has been using a wheelchair for mobility but was attempting to transition to a walker but was unable to consistently due to balance issues/dizziness. States the dizziness primarily occurs in the AM and with position changes, -orthostatic VS here, and no accompanying N/V/D, speech changes, facial droop, focal weakness or numbness, or ataxia. +occipital tenderness/RIVERA. No chest pain, syncope, or palpitations does state he occasional palpates his radial pulse and can feel a skipped beat . Has been unable to walk today due to the dizziness. No other complaints. Review of Systems Review of Systems: All systems reviewed & are unremarkable except as noted in HPI and below [facility] Past Medical History Medical History Atrial fibrillation BPH (benign prostatic hyperplasia) CHF (congestive heart failure) CKD (chronic kidney disease) HLD (hyperlipidemia) [place] (hard of hearing) IIRS on CPAP Pacemaker Paresis of left vocal cord Surgical History Surgical History History of pacemaker Family History Family History Father Abdominal aneurysm Son Kidney carcinoma Mother Hypertension Social History Social History Social History: Currently lives at home alone. being cared for at a facility. 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 Surrogate decision maker: Ronnie Durand, son. DNR. Smoking status: Former smoker Alcohol intake: former Substance use: never Do You Feel Safe in your Home?: Yes Lack of Transportation: No Lack of Food: Never True Current Housing: I Have Housing Concerned About Future Housing: No Difficulty Paying Gas/Electric Bills: No Difficulty Paying for Meds: No Currently Unemployed: No Education: High School Diploma/GED Difficulty w/ Childcare or Family Care: No Spiritual care concerns: No Meds Home Medications and Allergies Home Medications Medication Instructions Recorded Confirmed Type calcium citrate 315 mg-vitamin D3 315 tablet PO BID 12/20/22 02/27/23 History 5 mcg (200 unit) tablet (Calcium Citrate + D) cholecalciferol (vitamin D3) 25 25 mcg PO BID 12/20/22 02/27/23 History mcg (1,000 unit) tablet (Vitamin D3) glucosamine sulf dipot 550 cap PO BID 12/20/22 02/27/23 History chlr,msm,chond 550 mg-C 30 mg-jaleel 1 mg capsule (Glucosamine Chondroitin) tamsulosin 0.4 mg capsule 0.4 mg PO HS 12/20/22 02/27/23 History amiodarone 200 mg tablet (Pacerone) 200 mg PO BID 30 days #60 tabs 12/27/22 02/27/23 Rx apixaban 2.5 mg tablet (Eliquis) 2.5 mg PO BID #60 tabs 12/27/22 02/27/23 Rx met
--- NOTE | 2023-02-27 16:05 | ADMGEN ---
This patient, Socrates Durand, was admitted to Medical Room 246-01. Patient/family oriented to hospital policies and general routines including ID bracelet, bed and alarms, visiting hours, pain management, procedures, bathroom and other care routines, personal items, smoking policy, room service/diet, and visiting hours. Information on how to activate the Rapid Response Team has been discussed. Patient/Family are encouraged to report perceived risks to care and to ask questions if they do not understand what they are told or what they should do.
[2023-02-27] MEDS: SODIUM CHLORIDE 0.9% IV 1,000 ML 125 ML IV CONT (17:01)
[2023-02-27] MEDS: AMIODARONE HCL 200 MG TABLET PO (20:04)
[2023-02-27] MEDS: APIXABAN 2.5 MG TABLET PO (20:05)
[2023-02-27] MEDS: ATORVASTATIN 20 MG TABLET PO (20:12)
[2023-02-27] MEDS: METOPROLOL TARTRATE 25 MG TABLET PO (20:12)
[2023-02-27] MEDS: TAMSULOSIN HCL 0.4 MG CAPSULE PO (20:13)
[2023-02-28] VITALS (11 sets, daily range): BP systolic 119–143; BP diastolic 68–84; PULSE 60–71; RESP 18; TEMP 36.5–36.8; O2SAT 95–100
[2023-02-28] MEDS: SODIUM CHLORIDE 0.9% IV 1,000 ML 125 ML IV CONT (03:14)
[2023-02-28 04:53] LABS: Hematocrit 37.5 % (42.0-52.0); Hemoglobin 12.1 g/dL (14.0-18.0); Mean Corpuscular HGB Conc 32.3 g/dl (32-36); Mean Corpuscular Hemoglobin 31.5 pg (26-34); Mean Corpuscular Volume 97.7 fl (80-100); Mean Platelet Volume 10.9 fl (7.4-10.4); Platelet Count Result 144 k/mm3 (150-375); Red Blood Count 3.84 M/mm3 (4.6-6.20); Red Cell Distribution Width 14.8 % (11.5-14.5)
[2023-02-28 05:04] LABS: Anion Gap 4 mmol/L (8-16); Blood Urea Nitrogen 14 mg/dL (9-20); Calcium 8.2 mg/dL (8.4-10.2); Carbon Dioxide 25 mmol/L (22-30); Chloride 109 mmol/L (98-107); Estimated CRCL calculation 44 ml/min; Estimated Glomerular Filt Rate > 60; Glucose 86 mg/dL (65-110); Magnesium 1.8 mg/dL (1.6-2.3); Sodium 138 mmol/L (137-145)
[2023-02-28] MEDS: METOPROLOL TARTRATE 25 MG TABLET PO ×2 (09:45→21:05)
[2023-02-28] MEDS: CHOLECALCIFEROL 1,000 UNITS TABLET 1000 UNITS PO ×2 (09:45→18:00)
[2023-02-28] MEDS: APIXABAN 2.5 MG TABLET PO ×2 (09:45→18:00)
[2023-02-28] MEDS: AMIODARONE HCL 200 MG TABLET PO ×2 (09:45→18:01)
--- NOTE | 2023-02-28 12:34 | WPDNEURCNPN ---
Assessment and Plan Assessment and plan (1) COVID: Code(s): U07.1 - COVID-19 Status: Acute (2) Dizziness: Code(s): R42 - Dizziness and giddiness Status: Acute Plan 1. Orthostatic dizziness all the pros and cons of this particular problem were explained to him in addition to the dizziness related vestibular system and cardiac etiology in front of his son the he was mainly concerned about the dizziness while he was turning in the bed from side to side which could be related to the been signed dysfunction also he was concerned about the orthostatic dizziness that he is unable to cooperate any upright posture when he get out of the bed for that he was being started on orthostatic monitoring with intention to start him on Florinef or other medication. 2. Was concerned about not having the MRI and with a pacemaker in it was explained to him initial CT scan is negative and the kind of dizziness he is experiencing is not related to central causes but we will repeat the another CT scan in 3 to 5 days to make sure that he does not have any stroke with early CT scan based but he does not need to have the image 8 MRI both him and his son were satisfied he will stay here and the nurse was told to check blood pressure 3 times supine and upright for that we can make the decision to further. He can always take Antivert 12.5mg 3 times a day for the dizziness related to the inner tubules 12.5mg 3 times a day. They were both satisfied Consult date: 02/28/23 HPI: Socrates Durand is a 82 year old male[facility] where he was brought by EMS for complaints of dizziness and with information that while he was trying to get out of bed in the morning he felt as though the room was spinning and as if he was going to slip out of bed he then put his feet back up and gotten to the middle of it and call for help patient has had same dizziness ongoing since December 10 he has seen the trust operations assistant and also he complained of occipital headache at the severity of 7/10 seth did not complain of any chest pain . Patient medication included tamsulosin 0.4mg at night, atorvastatin 20mg at night, also is allergic to carvedilol and codeine in addition he has ongoing history of 1. Atrial fibrillation 2. Congestive heart failure 3. Hyperlipidemia 4. Obstructive sleep apnea 5. History of pacemaker in and 6. Chronic renal disease. He is a former smoker, former alcohol intake or initial exam in the emergency room was grossly nonfocal his vital signs were normal he was afebrile with temp of 97.5? blood pressure 143/93 CBC was normal so as the electrolytes and the routine lab studies. Since admission to the ER he has had the CTA of the brain and neck which revealed no aneurysm no intracranial arterial stenosis except 14% of the proximal left internal carotid artery and no bleed on CT scan Review of Systems Review of Systems: All systems reviewed & are unremarkable except as noted in HPI and below [facility] Past Medical History Medical History Atrial fibrillation BPH (benign prostatic hyperplasia) CHF (congestive heart failure) CKD (chronic kidney disease) HLD (hyperlipidemia) [place] (hard of hearing) IRIS on CPAP Pacemaker Paresis of left vocal cord Surgical History Surgical History History of pacemaker Family History Family History Father Abdominal aneurysm Son Kidney carcinoma Mother Hypertension Social History Social History Social History: Currently lives at home alone. being cared for at a facility. 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 Surrogate decision maker: Ronnie Durand, son. DNR. Smoking status: Former smoker Alcohol intake: former Substance use: n
--- NOTE | 2023-02-28 13:25 | PM.IMPN ---
Progress Note: A&P Assessment and Plan (1) Dizziness: Code(s): R42 - Dizziness and giddiness Status: Acute Assessment and Plan: Patient has presented to the ED due to falls 3 separate times in the last 2 months due to ongoing dizziness. CT Head: no significant abnormality seen. CTA brain and carotids negative for CVA, 14% stenosis of the left internal carotid. Meclizine and IVF with partial resolution of his dizziness. PT/OT eval and treat. negative orthostatics Unable to assess MRI due pacemaker presence. Neurology has been consulted and recommending meclizine (2) Pacemaker: Code(s): Z95.0 - Presence of cardiac pacemaker Status: Acute Assessment and Plan: Recently evaluated on 12/28 during admission for AFib, showed AFib with appropriate device function. Reports occasional PVCs. EKG today showed sinus rhythm with LBBB without significant changes compared to EKG on 01/30/23. (3) CHF (congestive heart failure): Code(s): I50.9 - Heart failure, unspecified Status: Acute Assessment and Plan: Recent adjustments to Lasix, was placed on 40 daily PO during admission mid Dec. admission during early Nov it was changed to PRN due to patient's poor PO intake and KARLA. Will monitor I&Os and daily weights. 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 GFR >60 and ECC 55. monitor. Subjective Date/time seen: 02/28/23 13:25 Interval history: Patient states he is still getting some intermittent dizziness When he gets up to stand. Discussed in detail with both patient and his son the likelihood him having benign positional vertigo. Started patient on scheduled meclizine. Neurology discussed with the family that an MRI is not necessary at this time. He denies any nausea, vomiting, visual changes, chest pain, shortness a breath. After discussing with the nurse patient has been stating that he has been a bit shaky and feeling like his heart is racing. Started crying when discussing his recently passed . A component of hospital stay could be due to anxiety and will give patient p.r.n. Ativan. Exam Narrative: GENERAL: Comfortable, no acute distress HENMT: moist mucous membranes EYES: EOM intact b/l NECK: no lymphadenopathy RESPIRATORY: clear to auscultation CARDIO: RRR GI: soft, nontender, bowel sounds present SKIN: no rashes EXTREMITIES: no edema, redness or tenderness Objective Data Vital Signs Vital Signs: Vital Signs - 24 hr 02/27/23 13:28 02/27/23 15:24 02/27/23 16:16 Temperature 98.2 F Pulse Rate 80 82 72 Respiratory Rate 18 16 20 Blood Pressure 153/93 H 105/86 150/67 H Pulse Oximetry 96 97 100 Oxygen Delivery 02/27/23 17:19 02/27/23 17:21 02/27/23 17:24 Temperature Pulse Rate 74 86 98 Respiratory Rate Blood Pressure 121/60 133/71 123/74 Pulse Oximetry 97 97 97 Oxygen Delivery 02/27/23 19:41 02/27/23 20:19 02/28/23 05:16 Temperature 97.7 F 98.0 F Pulse Rate 98 66 60 Respiratory Rate 20 18 18 Blood Pressure 142/71 H 119/68 Pulse Oximetry 97 99 100 Oxygen Delivery Room Air 02/28/23 08:43 02/28/23 09:45 02/28/23 09:45 Temperature Pulse Rate 62 62 Respiratory Rate Blood Pressure Pulse Oximetry Oxygen Delivery Room Air 02/28/23 11:29 Temperature Pulse Rate Respiratory Rate Blood Pressure Pulse Oximetry Oxygen Delivery Room Air Intake/Output Intake/Output: Intake & Output 02/25/23 02/26/23 02/27/23 02/28/23 23:59 23:59 23:59 23:59 Intake Total 240 1120 Output Total 1400 300 Balance -1160 820 Meds/Results Medications: Active Medications Generic Name Dose Route Start Last Admin Trade Name Freq PRN Reason Stop Dose Admin Acetaminophen 1,000 mg 02/27/23 18:19 Acetaminophen 500 Mg
[2023-02-28] MEDS: MECLIZINE HCL 25 MG TABLET PO ×2 (14:19→18:00)
[2023-02-28] MEDS: TAMSULOSIN HCL 0.4 MG CAPSULE PO (21:05)
[2023-02-28] MEDS: ATORVASTATIN 20 MG TABLET PO (21:06)
[2023-03-01] VITALS (7 sets, daily range): BP systolic 110–125; BP diastolic 58–84; PULSE 60–87; RESP 18; TEMP 36.4–36.8; O2SAT 98–100
[2023-03-01 05:11] LABS: Alanine Aminotransferase 26 U/L (6-50); Albumin Level 2.9 g/dL (3.5-5.1); Alkaline Phosphatase 85 U/L (38-126); Anion Gap 4 mmol/L (8-16); Aspartate Amino Transferase 24 U/L (17-59); Bilirubin,Total 1.3 mg/dL (0.2-1.3); Blood Urea Nitrogen 16 mg/dL (9-20); Calcium 8.7 mg/dL (8.4-10.2); Carbon Dioxide 25 mmol/L (22-30); Chloride 106 mmol/L (98-107); Estimated CRCL calculation 41 ml/min; Estimated Glomerular Filt Rate 58; Glucose 79 mg/dL (65-110); Potassium 3.9 mmol/L (3.4-5.0); Sodium 135 mmol/L (137-145)
[2023-03-01] MEDS: CHOLECALCIFEROL 1,000 UNITS TABLET 1000 UNITS PO (09:08)
[2023-03-01] MEDS: MECLIZINE HCL 25 MG TABLET PO ×2 (09:08→12:33)
[2023-03-01] MEDS: AMIODARONE HCL 200 MG TABLET PO (09:08)
[2023-03-01] MEDS: METOPROLOL TARTRATE 25 MG TABLET PO (09:08)
[2023-03-01] MEDS: APIXABAN 2.5 MG TABLET PO (09:08)
--- NOTE | 2023-03-01 13:09 | PM.DS ---
DS: Admitting Diagnosis Discharge Date 03/01/23 Admitting Diagnosis dizziness, fall DS: Discharge Diagnosis Discharge Diagnosis (1) Dizziness: Code(s): R42 - Dizziness and giddiness Status: Acute (2) Pacemaker: Code(s): Z95.0 - Presence of cardiac pacemaker Status: Acute (3) CHF (congestive heart failure): Code(s): I50.9 - Heart failure, unspecified Status: Acute (4) CKD (chronic kidney disease): Code(s): N18.9 - Chronic kidney disease, unspecified Status: Acute DS: Summary Hospital Course Hospital Course: This is a 82-year-old male with a past medical history of AFib, BPH, CHF, CKD, hyperlipidemia, IRIS on CPAP, has a pacemaker and creases of vocal cord. Patient has been seen here 3 times since Dec. Initially admitted between 12/20-12/27 for new AFib RVR with failed cardioversion x3 but was ultimately controlled with medication changes, EF of 30-35% and treated with improvement to 50-55% and d/c'd on daily lasix, and dysphagia likely secondary to paresis of 1 of the vocal cords with recommendations to implement dietary modifications. Then returned on 01/10 and was admitted for generalized weakness with almost fall, family voiced concerns that patient is not drinking much and found to have KARLA - Lasix changed to PRN and found to have a UTI. Returned on 01/30 for continued intermittent lightheadedness that had been present since Dec with underlying baseline balance issues. He presents to the ED bring this admission due to a fall that was associated with dizziness. Patient states that the dizziness is worse with changes of position. His orthostatics remained negative with no accompanying nausea vomiting, speech changes, facial droop, weakness, numbness or ataxia. He did not have any syncope or hit his head when he fell. CT of the head with no significant abnormality, CTA of the brain and carotids with out evidence of a stroke. Patient was started on meclizine and IV fluids with some improvement. He was started on meclizine 25 mg t.i.d. and patient states that with slow movements and with the medication he felt better. Neurology was consulted and did not believe patient needs an MRI. MRI cannot be done here Luis F due to pacemaker being present. Patient likely experiencing BPPV and this was thoroughly explained to both the patient and his family members. Patient was given exercises to help with his vertigo. PT and OT evaluated patient patient will receive home health at discharge. Labs and vital signs are stable and he is medically clear for discharge just fine. Time Spent with Patient Time attestation: Total time spent providing and/or coordinating discharge services: Exam Narrative: GENERAL: Comfortable, no acute distress HENMT: moist mucous membranes EYES: EOM intact b/l NECK: no lymphadenopathy RESPIRATORY: clear to auscultation CARDIO: RRR GI: soft, nontender, bowel sounds present SKIN: no rashes EXTREMITIES: no edema, redness or tenderness DS: Data Data Completed and Pending Labs on day of discharge: Labs from last 24 hours 03/01/23 04:17 Sodium 135 L Potassium 3.9 Chloride 106 Carbon Dioxide 25 Anion Gap 4 L BUN 16 Creatinine 1.20 Estim Creat Clear Calc 41 Estimated GFR 58 L Glucose 79 Calcium 8.7 Total Bilirubin 1.3 AST 24 ALT 26 Alkaline Phosphatase 85 Total Protein 6.0 L Albumin 2.9 L Discharge Plan Discharge Attending physician on discharge: Nathanael Scott Consulting providers: Lenin Santiago; Frederick Her Discharging Clinician: Leta Sue Patient Disposition: ND Alf/Asst Living Activity: other - see discharge instructions Diet: heart healthy Discharge Instructions: Per Care Coordination Patient has been accepted to have [facility] for RN, PT, OT [phone] Medications: Meclizine 25 mg t.i.d. When to seek care: You sudden chest pain You have trouble br
== END 2023-03-01 14:15 | disposition home health service (06) | DRG 149 ==
LOC: ANHED 12:45 → ANH2MED 15:18
PROVIDERS: Student in an Organized Health Care Education/Training Program; Admitting Provider Hospitalist; Emergency Provider Nurse Practitioner Family; PCP Family Medicine; Visit Provider Internal Medicine Critical Care Medicine
DX: H81.10 Benign paroxysmal vertigo, unspecified ear (principal); I48.20 Chronic atrial fibrillation, unspecified; I50.9 Heart failure, unspecified; N40.0 Benign prostatic hyperplasia without lower urinary tract symptoms; J38.01 Paralysis of vocal cords and larynx, unilateral; E78.5 Hyperlipidemia, unspecified; Z95.0 Presence of cardiac pacemaker; Z87.891 Personal history of nicotine dependence
CPT/HCPCS: 36415; 70450; 70496; 70498; 80048; 80053; 81001; 83735; 83880; 84484; 85025; 85027; 85610; 85730; 93005; 96360; 96361; 97110; 97161; 97166; 97530; 97535; 99285; A9270; G0378; J7030; Q9967

== ENCOUNTER 2023-03-30 12:58 | Emergency (ER) | payer MEDICARE, BC, SELFPAY ==
--- NOTE | ~2023-03-30 | CT_ITS ---
EXAMINATION: CT cervical spine wo con DATE: 03/30/2023 18:15 INDICATION: Neck pain TECHNIQUE: Computed tomography (CT) of the cervical spine was performed without intravenous contrast. The dose-length product (DLP) was 464.70 mGy-cm. Automated exposure control and iterative reconstruc tion technique were employed. COMPARISON: 02/27/2023 FINDINGS: There is a transverse type II odontoid fracture with nonunion but no significant change sin ce the recent comparison examination. There are 2 mm of anterolisthesis of C3 on C4 and C6 on C7. The re is severe loss of intervertebral disc space height from C3-4 through C6-7. The vertebral body heig hts are maintained. There is multilevel severe facet and uncovertebral joint osteoarthritis. IMPRESSION: 1. Healing subacute type II odontoid fracture with nonunion. Consider follow-up surgical evaluation. 2. Severe cervical spondylosis. Reviewed, dictated and finalized at location F. RAFT AVIONICS TECHNICIAN
--- NOTE | ~2023-03-30 | XR_ITS ---
EXAMINATION: XR humerus RT INDICATION: Right arm pain TECHNIQUE: Two views of the right humerus are obtained. COMPARISON: None available FINDINGS: Bone alignment is normal. There is no fracture of the humerus. There is a possible fracture of the right eighth rib. The soft tissues are unremarkable. IMPRESSION: 1. No humerus fracture. 2. Possible lateral fracture of the right eighth rib. Reviewed, dictated and finalized at location F. GER CLINICAL APPLICATIONS
--- NOTE | ~2023-03-30 | XR_ITS ---
EXAMINATION: XR shoulder RT min 2V INDICATION: Right shoulder pain TECHNIQUE: Three views of the right shoulder are submitted. COMPARISON: None FINDINGS: Somewhat nonstandard views of the right shoulder are submitted. There appears to be an obli que fracture in the distal body of the scapula. There is moderate osteoarthritis of the glenohumeral and acromioclavicular joints. There are acute lateral fractures of the right eighth and ninth ribs an d possibly the sixth and seventh ribs. Soft tissues are unremarkable. IMPRESSION: 1. Possible oblique fracture in the distal body of the scapula. 2. Lateral fractures of the right eighth and ninth ribs and possible sixth and seventh rib fractures. Reviewed, dictated and finalized at location F. ET OPERATOR
--- NOTE | ~2023-03-30 | CT_ITS ---
EXAMINATION: CT chst ab ralph castelan w DATE: 03/30/2023 18:17 INDICATION: Back and right-sided pain after fall TECHNIQUE: Transaxial computed tomographic images of the chest, abdomen, pelvis, thoracic, and lumbar spine were obtained after the administration of 100 cc of Omnipaque 350 intravenous contrast. The do se-length product (DLP) was 1508.48 mGy-cm. Automated exposure control and iterative reconstruction t echnique were employed. COMPARISON: None FINDINGS: CHEST CT: There are small pleural effusions. There are dependent airspace opacities of the lungs. There are acu te lateral fractures of the right seventh, eighth, and ninth ribs. There are also medial fractures of the right eighth, ninth, and 10th ribs at the articulation with the vertebral body There is a fractu re involving the caudal tip of the right scapular body. There is no pneumothorax. No pathologically e nlarged thoracic lymph nodes are identified. The heart size is normal. Calcified coronary artery athe rosclerosis is noted. There are calcifications of the aortic and mitral valves. ABDOMEN/PELVIS CT: Cysts of the liver measure up to 6 cm in the left hepatic lobe. Changes of cholecystectomy are noted. The spleen, pancreas, and adrenal glands are normal. There is a 3.7 cm cyst of the right kidney. The left kidney is unremarkable. The appendix is normal. No pathologically enlarged abdominal or pelvic lymph nodes are identified. No free intraperitoneal gas or evidence of bowel obstruction. Colonic div erticulosis is present without evidence of diverticulitis. There is a left inguinal hernia containing fat. There is calcified atherosclerosis of the aorta and many of the other arteries. THORACIC SPINE CT: Bone alignment is normal. There are fractures of the right T8 and T9 transverse processes. There is m oderate loss of intervertebral disc space height at multiple levels in the thoracic spine. LUMBAR SPINE CT: There are 4 mm of retrolisthesis of L1 on L2. The vertebral body heights are maintained. There is sev ere loss of intervertebral disc space height at L4-5 and L5-S1 and moderate loss of disc space height throughout the remainder of the lumbar spine. There is no fracture. IMPRESSION: 1. Acute lateral fractures of the right seventh through ninth ribs and medial fractures of the right eighth through 10th ribs. 2. Fracture involving the caudal tip of the right scapular body. 3. Fractures of the right T8 and T9 transverse processes. 4. Small pleural effusions. 5. Dependent airspace opacities of the lungs, consistent with atelectasis versus pneumonia. 6. Severe lumbar spondylosis without acute findings. Reviewed, dictated and finalized at location F. OMER SUPPORT ENGINEER IMPRESSION: 1. Acute lateral fractures of the right seventh through ninth ribs and medial f ractures of the right eighth through 10th ribs. 2. Fracture involving the caudal tip of the right scapular body. 3. Fractures of the right T8 and T9 transverse processes. 4. Small pleural effusions. 5. Dependent airspace opacities of the lungs, consistent with atelectasis versu s pneumonia. 6. Severe lumbar spondylosis without acute findings.
--- NOTE | ~2023-03-30 | CT_ITS ---
EXAMINATION: CT brain wo con INDICATION: Head injury COMPARISON: 02/27/2023 TECHNIQUE: Standard unenhanced head CT. The dose-length product (DLP) was 681.00 mGy-cm. The mA was a djusted according to patient size. Iterative reconstruction technique was employed. FINDINGS: No acute intraparenchymal hemorrhage. No evidence of mass lesion. No evidence of acute infa rction. There is mild periventricular and subcortical hypodensity probably related to small vessel is chemic disease. There is mild prominence of the sulci and ventricles related to cerebral atrophy. Int racranial calcified cerebral atherosclerosis is noted. No extra-axial collections. No mass effect or midline shift. Changes in the globes are likely from ocular lens surgery. The visualized sinuses and mastoid air cells are well aerated. IMPRESSION: 1. No acute intracranial abnormality. 2. Age related findings. Reviewed, dictated and finalized at location F. CONVEYOR FEEDER
[2023-03-30 12:58] VITALS: BP 157/85; PULSE 60; RESP 12; TEMP 36.4; O2SAT 98
--- NOTE | 2023-03-30 16:17 | ED.FALL ---
HPI - Fall General Chief Complaint: Fall Stated Complaint: FALL DIZZY Time Seen by Provider: 03/30/23 16:16 History of Present Illness HPI Narrative: Patient is an 82-year-old male with history of CHF, afib, CKD here with a fall. Patient notes that over the last few months he has been dealing with dizziness. He was admitted for this a few months ago, was told it is likely vestibular related. Yesterday he was evaluated by a rehab provider who plans to start a therapy plan for this next week. Patient notes that he was standing by his recliner and started getting dizzy. He propped himself against his recliner with his walker behind him but proceeded to fall over the edge of his recliner, falling onto his right side. He notes that he hit his back and right shoulder on the heater on the wall on his way down. He notes he alerted staff at his assisted living who then helped him off of the floor. He is currently complaining of upper back pain and right shoulder pain. Denies head injury, denies LOC. Related Data Home Medications Medication Instructions Recorded Confirmed cholecalciferol (vitamin D3) 25 25 mcg PO BID 12/20/22 02/27/23 mcg (1,000 unit) tablet (Vitamin D3) glucosamine sulf dipot 550 cap PO BID 12/20/22 02/27/23 chlr,msm,chond 550 mg-C 30 mg-jaleel 1 mg capsule (Glucosamine Chondroitin) Allergies Allergy/AdvReac Type Severity Reaction Status Date / Time carvedilol Allergy Unknown Unknown Verified 02/27/23 17:34 codeine AdvReac Unknown Hallucinati Verified 02/27/23 17:34 ng Review of Systems Review of Systems: All systems reviewed & are unremarkable except as noted in HPI and below [facility] Past Medical History Medical History Atrial fibrillation BPH (benign prostatic hyperplasia) CHF (congestive heart failure) CKD (chronic kidney disease) HLD (hyperlipidemia) [place] (hard of hearing) IRIS on CPAP Pacemaker Paresis of left vocal cord Surgical History Surgical History History of pacemaker Family History Family History Father Abdominal aneurysm Son Kidney carcinoma Mother Hypertension Social History Social History Social History: Currently lives at home alone. being cared for at a facility. 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 Surrogate decision maker: Ronnie Durand, jay. DNR. Smoking status: Former smoker Alcohol intake: former Substance use: never Do You Feel Safe in your Home?: Yes Lack of Transportation: No Lack of Food: Never True Current Housing: I Have Housing Concerned About Future Housing: No Difficulty Paying Gas/Electric Bills: No Difficulty Paying for Meds: No Currently Unemployed: No Education: High School Diploma/GED Difficulty w/ Childcare or Family Care: No Spiritual care concerns: No Exam Narrative: GENERAL: Well-appearing, well-nourished, and in no acute distress. HEAD: Normocephalic, atraumatic. EYES: PERRLA and EOMI. ENT: Nares clear. Mucous membranes moist. NECK: Supple. CHEST: Clear to auscultation. No respiratory distress. HEART: Regular rate and rhythm. Normal peripheral pulses. ABDOMEN: Soft, nontender, nondistended. EXTREMITIES: Tenderness right paraspinal over the thoracic and lumbar areas. No stepoffs appreciated. No midline tenderness appreciated. Tenderness with decreased ROM of his right shoulder and proximal humerus, no obvious deformities. + PMS distal to injury on the right arm. SKIN: Warm, dry, no rash. NEURO: No focal deficits. Alert and oriented x3. PSYCH: Normal mood and affect. Course Course Emergency Course: Chart review performed. Patient here with dizziness and a fall. Triage vitals normal. Last DC summary from 02/28/23. They note history of Afib, BPH, CHF with EF of
--- NOTE | 2023-03-30 16:19 | ECG_ITS ---
Measurements Intervals [place] Rate: 68 P: 48 WI: 171 QRS: -24 QRSD: 156 T: 71 QT: 483 QTc: 516 Interpretive Statements SINUS RHYTHM LEFT BUNDLE BRANCH BLOCK BASELINE ARTIFACT- V1-V2 ABNORMAL ECG COMPARED TO ECG 02/27/2023 09:10:05 NO SIGNIFICANT CHANGES Electronically Signed On 03-31-2023 8:04:59 TURNING AND BEADING MACHINE OPERATOR by Henry Jerez D.O.
[2023-03-30 16:44] LABS: Appearance Urine Clear (Clear); Bacteria Urine Rare /hpf; Bilirubin Urine Negative (Negative); Blood Urine Negative (Negative); Color Urine Yellow (Yellow); Glucose Urine UA Negative (Negative); Ketones Urine Negative (Negative); Leukocyte Esterase Ur 2+ LEU/UL (Negative); Need Manual Microscopic Reviewed; Nitrate Urine Negative (Negative); Non Pathogenic Casts 0-2; Protein Urine Negative (Negative); Specific Grav Ur 1.015 (1.001-1.035); Squamous Epithelial Cell Urine None seen /hpf (Few); Urobilinogen Urine 0.2 mg/dL (<2.0); WBC Urine 51-100 /hpf; pH Urine 5.5 (5.0-9.0)
[2023-03-30 16:45] LABS: Add Urine Microscopic? YES
[2023-03-30 16:45] LABS: Basophils Percent Auto 0.4 % (0.2-1.2); Eosinophils Absolute Auto 0.1 K/mm3 (0-0.3); Eosinophils Percent Auto 0.9 % (0-4.4); Hematocrit 35.4 % (42.0-52.0); Hemoglobin 11.2 g/dL (14.0-18.0); Immature Granulocyte Absolute 0.13 K/mm3 (0.00-0.031); Immature Granulocyte Percent A 1.4 % (0-0.5); Immature Platelet Fraction Pct 5.3 % (0.9-11.2); Lymphocytes Absolute Auto 1.32 K/mm3 (0.9-3.2); Lymphocytes Percent Auto 13.8 % (18.3-44.2); Mean Corpuscular HGB Conc 31.6 g/dl (32-36); Mean Corpuscular Hemoglobin 31.2 pg (26-34); Mean Corpuscular Volume 98.6 fl (80-100); Mean Platelet Volume 10.9 fl (7.4-10.4); Monocytes Absolute Auto 0.7 K/mm3 (0.1-0.6); Monocytes Percent Auto 7.2 % (2.6-8.5); Neutrophils Absolute Auto 7.3 K/mm3 (1.3-6.7); Neutrophils Percent Auto 76.3 % (45.5-73.1); Platelet Count Result 137 k/mm3 (150-375); Red Blood Count 3.59 M/mm3 (4.6-6.20); Red Cell Distribution Width 15.6 % (11.5-14.5); White Blood Count 9.5 K/mm3 (4.5-10.0)
[2023-03-30 16:54] LABS: INR 1.2
[2023-03-30 16:55] LABS: Partial Thromboplastin Time 36.2 SECONDS (22.3-36.8)
[2023-03-30 16:57] LABS: Alanine Aminotransferase 28 U/L (6-50); Albumin Level 3.5 g/dL (3.5-5.1); Alkaline Phosphatase 91 U/L (38-126); Anion Gap 6 mmol/L (8-16); Aspartate Amino Transferase 31 U/L (17-59); Bilirubin,Total 1.7 mg/dL (0.2-1.3); Blood Urea Nitrogen 19 mg/dL (9-20); Calcium 8.7 mg/dL (8.4-10.2); Carbon Dioxide 26 mmol/L (22-30); Chloride 105 mmol/L (98-107); Estimated CRCL calculation 63 ml/min; Estimated Glomerular Filt Rate > 60; Glucose 90 mg/dL (65-110); Potassium 4.3 mmol/L (3.4-5.0); Sodium 137 mmol/L (137-145)
[2023-03-30 17:09] LABS: Troponin I < 0.012 ng/mL (0.000-0.034)
[2023-03-30] MEDS: ACETAMINOPHEN 500 MG TABLET 1000 MG PO (17:49)
[2023-03-30] MEDS: cefTRIAXone 2 GM/NS 100 ML 2 GM/100 ML BAG IVPB (18:27)
[2023-03-30 18:43] LABS: Creatine Kinase 193 U/L (55-170)
[2023-03-30 19:16] VITALS: BP 156/84; PULSE 70; RESP 15; O2SAT 96
[2023-03-30 19:57] LABS: Troponin I < 0.012 ng/mL (0.000-0.034)
[2023-03-30] MEDS: MORPHINE SULFATE (*CRX) 2 MG/ML INJ IV PUSH ×2 (20:43→23:11)
[2023-03-30 23:02] VITALS: BP 148/98; PULSE 80; RESP 15; O2SAT 100
--- NOTE | 2023-03-30 23:12 | PC.NURSE ---
GIRISHB for 2 mg Morphine by Hiwot Martinez prior to transport of patient.
== END 2023-03-30 23:13 | disposition short-term general hospital (02) ==
PROVIDERS: Emergency Provider Student in an Organized Health Care Education/Training Program; PCP Internal Medicine Geriatric Medicine
DX: S22.41XA Multiple fractures of ribs, right side, initial encounter for closed fracture (principal); S42.111A Displaced fracture of body of scapula, right shoulder, initial encounter for closed fracture; S22.068A Other fracture of T7-T8 thoracic vertebra, initial encounter for closed fracture; S22.078A Other fracture of T9-T10 vertebra, initial encounter for closed fracture; N39.0 Urinary tract infection, site not specified; I50.9 Heart failure, unspecified; I48.91 Unspecified atrial fibrillation; N18.9 Chronic kidney disease, unspecified; N40.0 Benign prostatic hyperplasia without lower urinary tract symptoms; E78.5 Hyperlipidemia, unspecified; G47.33 Obstructive sleep apnea (adult) (pediatric); Z66 Do not resuscitate; Z95.0 Presence of cardiac pacemaker; Z87.891 Personal history of nicotine dependence; Z79.01 Long term (current) use of anticoagulants; I44.7 Left bundle-branch block, unspecified; M47.816 Spondylosis without myelopathy or radiculopathy, lumbar region; M47.812 Spondylosis without myelopathy or radiculopathy, cervical region; W18.39XA Other fall on same level, initial encounter
CPT/HCPCS: 36415; 70450; 71260; 72125; 72129; 72132; 73030; 73060; 74177; 80053; 81001; 82550; 84484; 85025; 85055; 85610; 85730; 87077; 87086; 87088; 93005; 96365; 96375; 96376; 99285; A9270; J0696; J2270; Q9967

== ENCOUNTER 2023-07-09 19:14 | Inpatient (IN) | payer MEDICARE, BC, SELFPAY ==
[2023-07-09] VITALS (11 sets, daily range): BP systolic 105–157; BP diastolic 69–105; PULSE 80–95; RESP 16–30; TEMP 36.8; O2SAT 90–98
--- NOTE | ~2023-07-09 | XR_ITS ---
EXAMINATION: XR chest 2V Exam Date/Time: 07/09/2023 20:00 CDT HISTORY: gen weakness Comparison: 12/10/2022. RESULT: Lines, tubes, and devices: Left chest pacer, intact leads in good position. Lungs and pleura: Senescent changes. Minimal streaky bibasilar atelectasis/scar. Right costophrenic angle blunting. Cardiomediastinal silhouette: Stable. Other: No acute osseous or upper abdominal finding. IMPRESSION: Small right pleural effusion. Reviewed, dictated and finalized at location K.
--- NOTE | ~2023-07-09 | US_ITS ---
EXAMINATION: US venous doppler [facility] DATE: 07/10/2023 14:29 INDICATION: Acute pulmonary emboli. TECHNIQUE: Grayscale ultrasound images without and with compression and Doppler ultrasound images of the bilateral lower extremity veins were obtained. COMPARISON: None. FINDINGS: The visualized portions of right profunda (deep) femoral vein, femoral vein, popliteal vein, peroneal veins, posterior tibial veins, and greater saphenous vein outflow are patent. There is thrombus in r ight common femoral vein. The visualized portions of left common femoral vein, profunda femoral vein, femoral vein, popliteal v ein, peroneal veins, posterior tibial veins, and greater saphenous vein outflow are patent. IMPRESSION: 1. Acute deep vein thrombosis involving right common femoral vein. Reviewed, dictated and finalized at location A.
--- NOTE | ~2023-07-09 | CT_ITS ---
EXAMINATION: CT abdomen pelvis w con DATE: 07/09/2023 22:51 INDICATION: persistent uti TECHNIQUE: Computed tomography (CT) of the abdomen and pelvis was performed with 100 mL Omnipaque-350 intravenous contrast. Automated exposure control and iterative reconstruction technique were employe d. The dose-length product was 1159.26 mGy-cm. COMPARISON: X-ray chest, same date. 03/30/2023 FINDINGS: Lower thorax: Coronary artery and mitral calcification. Pacer leads, in good position. Minimal depend ent atelectasis. Small right pleural effusion. Liver: Multiple hepatic cysts measuring up to 6.4 cm in the left lobe. Multiple subcentimeter hypoden sities, too small to characterize but also likely represent cysts. Biliary/Gallbladder: Gallbladder is absent. No bile duct dilation. Pancreas: Mild fatty atrophy. Spleen: Normal. Adrenals:No mass. Kidneys: No suspicious mass, obstructing stone, or hydronephrosis. Simple right lower pole cyst. GI tract: No small or large bowel dilation. Normal appendix. Diverticulosis without diverticulitis. Mesentery/Peritoneum: No ascites, mass, or free air. Retroperitoneum: No mass. Pelvis: Small calcified and noncalcified bladder diverticula. Prostate calcifications. Soft Tissues: Small fat-containing left inguinal hernia. Bones: No acute osseous finding. Subacute/chronic right rib fractures. IMPRESSION: Small right pleural effusion. No acute abdominopelvic process detected. Reviewed, dictated and finalized at [facility] K.
--- NOTE | ~2023-07-09 | XR_ITS ---
Portable chest x-ray Comparison: 07/09/2023 Clinical History: Aspiration pneumonia Findings: Questionable minimal haziness right upper lobe. Cardiomediastinal silhouette is stable, w ith pacemaker device. Bones and soft tissues are unremarkable. Impression: Questionable minimal haziness right upper lobe. Correlate for developing pneumonia. Reviewed, dictated and finalized at [facility]. Impression: Questionable minimal haziness right upper lobe. Correlate for developing pneumo zelalem.
--- NOTE | ~2023-07-09 | XR_ITS ---
MODIFIED ESOPHAGRAM HISTORY: Aspiration pneumonia. Coughing with moderately thickened liquids. TECHNIQUE: Modified barium esophagram was performed on 07/14/2023. I administered fluoroscopy and perfo rmed the exam with speech pathologist. Patient was seated for lateral fluoroscopic imaging for inges tion of thin liquids, pudding, solids and quantified amounts, followed by thin liquids in uncontrolle d amounts. This was recorded on tape. A single fluoroscopic spot image was also recorded. The DAP for this procedure was 5.925 Gycm2. The amount of fluoroscopy time used during this procedure was 5.7 mi nutes. FINDINGS: Oral stage: Adequate function. Pharyngeal stage: Reduced laryngeal elevation and tongue base retraction. There is vallecular and pir iform sinus residue. There was laryngeal penetration without aspiration with thin liquids. Cervical/esophageal stage: Adequate function. IMPRESSION: Pharyngeal dysphagia with laryngeal penetration without aspiration with thin liquids. Pl ease correlate with speech pathologist findings and specific feeding recommendations. Reviewed, dictated and finalized at location A. IMPRESSION: Pharyngeal dysphagia with laryngeal penetration without aspiration with thin liquids. Please correlate with speech pathologist findings and speci fic feeding recommendations.
--- NOTE | ~2023-07-09 | NM_ITS ---
EXAMINATION: NM lung vent and perfusion DATE: 07/10/2023 13:03 INDICATION: Hypoxia. TECHNIQUE: 22.74 mCi Xenon-133 was administered for inspiration images. 5.4 mCi Tc-99m MAA was admini stered intravenously for perfusion images. Scintigraphic images of the chest were obtained. COMPARISON: Chest 2 views 07/09/2023, CT abdomen and pelvis 07/09/2023 FINDINGS: Ventilation images demonstrate small defects in the upper lobes and lower lobes on the single breath image. [place] images demonstrate retention in the mid and lower lung zones. Perfusion images show la rge defects in right upper lobe, right lower lobe, and right middle lobe. IMPRESSION: 1. High probability for pulmonary embolism. Review of the CT from 07/09/23 demonstrates acute pulmona ry emboli in right lower lobe and right middle lobe. I called this result to Ashley Hoyos. Reviewed, dictated and finalized at location A. IMPRESSION: 1. High probability for pulmonary embolism. Review of the CT from 07/09/23 demo nstrates acute pulmonary emboli in right lower lobe and right middle lobe. I ca lled this result to Ashley Hoyos.
--- NOTE | ~2023-07-09 | CT_ITS ---
EXAMINATION: CT brain wo con DATE: 07/09/2023 20:52 INDICATION: Weakness . TECHNIQUE: Computed tomography (CT) of the head was performed without intravenous contrast. The mA wa s adjusted according to patient size. Iterative reconstruction technique was employed. The dose-lengt h product was 681.00 mGy-cm. COMPARISON: 03/30/2023. FINDINGS: No acute intracranial hemorrhage or extra-axial fluid collection. No hydrocephalus, mass, or herniation. No acute ischemic infarct. Unremarkable dural venous sinus attenuation. No acute osseous abnormality. Trace bilateral mastoid fluid, the remaining aerated spaces are clear. Mild atrophy and chronic white matter change. Atherosclerotic intracranial calcification. Bilateral l ens replacements. IMPRESSION: No acute intracranial process. Reviewed, dictated and finalized at location K.
--- NOTE | ~2023-07-09 | XR_ITS ---
EXAMINATION: XR barium swallow modified DATE: 07/10/2023 09:33 INDICATION: Witnessed choking. TECHNIQUE: The patient was given barium-containing material of multiple consistencies to swallow by t ria speech pathologist while I performed fluoroscopy. Fluoroscopy exposure time was 1.5 minutes. The n umber of fluoroscopy images saved to the PACS was 1. Dose-area product was 1.5 Gy-cm^2. FINDINGS: There is reduced laryngeal elevation and reduced tongue base retraction. There is laryngeal penetrati on with thin liquids and nectar thick liquids. IMPRESSION: 1. Laryngeal penetration with thin liquids and nectar thick liquids. 2. Please refer to the speech therapy report for recommendations. Reviewed, dictated and finalized at location A.
--- NOTE | 2023-07-09 19:55 | ECG_ITS ---
SEE SCANNED COPY FOR CONFIRMED REPORT MTDD
[2023-07-09 20:51] LABS: Basophils Absolute Auto 0.1 K/mm3 (0.0-0.1); Basophils Percent Auto 0.5 % (0.2-1.2); Eosinophils Absolute Auto 0.2 K/mm3 (0-0.3); Eosinophils Percent Auto 1.8 % (0-4.4); Hematocrit 40.9 % (42.0-52.0); Hemoglobin 13.5 g/dL (14.0-18.0); Immature Granulocyte Absolute 0.15 K/mm3 (0.00-0.031); Immature Granulocyte Percent A 1.4 % (0-0.5); Lymphocytes Absolute Auto 1.37 K/mm3 (0.9-3.2); Lymphocytes Percent Auto 12.9 % (18.3-44.2); Mean Corpuscular Hemoglobin 30.4 pg (26-34); Mean Corpuscular Volume 92.1 fl (80-100); Mean Platelet Volume 10.7 fl (7.4-10.4); Monocytes Absolute Auto 0.9 K/mm3 (0.1-0.6); Monocytes Percent Auto 8.9 % (2.6-8.5); Neutrophils Absolute Auto 7.9 K/mm3 (1.3-6.7); Neutrophils Percent Auto 74.5 % (45.5-73.1); Platelet Count Result 202 k/mm3 (150-375); Red Blood Count 4.44 M/mm3 (4.6-6.20); Red Cell Distribution Width 14.1 % (11.5-14.5); White Blood Count 10.6 K/mm3 (4.5-10.0)
[2023-07-09 20:57] LABS: Appearance Urine Clear (Clear); Bacteria Urine None Seen /hpf; Bilirubin Urine Negative (Negative); Blood Urine Negative (Negative); Color Urine Yellow (Yellow); Glucose Urine UA Negative (Negative); Ketones Urine Negative (Negative); Leukocyte Esterase Ur 2+ LEU/UL (Negative); Nitrate Urine Negative (Negative); Non Pathogenic Casts 0-2; Protein Urine Negative (Negative); RBC Urine 0-2 /hpf (0-2); Specific Grav Ur 1.018 (1.001-1.035); Squamous Epithelial Cell Urine None Seen /hpf (Few); WBC Urine 21-50 /hpf (0-3); pH Urine 5.5 (5.0-9.0)
[2023-07-09 21:00] LABS: INR 1.1
[2023-07-09 21:03] LABS: Magnesium 1.9 mg/dL (1.6-2.3)
[2023-07-09 21:08] LABS: Add Urine Microscopic? YES
[2023-07-09 21:16] LABS: Alanine Aminotransferase 34 U/L (6-50); Alkaline Phosphatase 165 U/L (38-126); Anion Gap 11 mmol/L (4-12); Aspartate Amino Transferase 36 U/L (17-59); Bilirubin,Total 1.2 mg/dL (0.2-1.3); Blood Urea Nitrogen 21 mg/dL (9-20); Carbon Dioxide 20 mmol/L (22-30); Chloride 104 mmol/L (98-107); Estimated CRCL calculation 36 ml/min; Estimated Glomerular Filt Rate 41; Glucose 116 mg/dL (65-110); NT Pro B Type Natriuretic Pept 484 pg/mL (19.9-100); Potassium 4.3 mmol/L (3.4-5.0); Sodium 135 mmol/L (137-145); Troponin I 0.013 ng/mL (0.000-0.034)
[2023-07-09 21:28] LABS: Lactic Acid Reflex 1.7 mmol/L (0.7-2.0)
[2023-07-09 21:55] LABS: Influenza A QL RT-PCR Negative (Negative); Influenza B QL RT-PCR Negative (Negative); RSV RNA, RT-PCR Negative (Negative); SARS-CoV-2 RNA PCR Negative (Negative)
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
[2023-07-09] MEDS: FUROSEMIDE INJ 40 MG/4 ML VIAL IV PUSH (23:39)
[2023-07-09] MEDS: PIPERACILLN/TAZ 3.375GM/NS50ML 3.375 GM/50 ML BAG IVPB (23:39)
[2023-07-10] VITALS (17 sets, daily range): BP systolic 113–140; BP diastolic 62–105; PULSE 79–95; RESP 16–22; TEMP 36.1–37.3; O2SAT 92–94; BMI 29.3
[2023-07-10 00:29] LABS: Troponin I 0.022 ng/mL (0.000-0.034)
--- NOTE | 2023-07-10 02:58 | ADMGEN ---
This patient, Socrates Durand, was admitted to Medical Room 257-01. Patient/family oriented to hospital policies and general routines including ID bracelet, bed and alarms, visiting hours, pain management, procedures, bathroom and other care routines, personal items, smoking policy, room service/diet, and visiting hours. Information on how to activate the Rapid Response Team has been discussed. Patient/Family are encouraged to report perceived risks to care and to ask questions if they do not understand what they are told or what they should do.
--- NOTE | 2023-07-10 04:23 | PM.IMHP ---
H&P: HPI History of Present Illness Date/Time: 07/10/23 04:23 Chief Complaint: Weakness Narrative: 82-year-old male with a past medical history of atrial fibrillation, CHF, BPH, overactive bladder, chronic kidney disease, obstructive sleep apnea requiring CPAP, prior pacemaker placement, chronic vertigo, vocal cord paralysis, multiple falls with recent fall in March complicated by multiple rib fractures, subarachnoid hemorrhage, scapular fracture and dens fracture who presented back to the ER from [facility] due to concern for possible tongue swelling by nursing staff. The patient and family members deny sensation of tongue swelling. Since the patient had subarachnoid hemorrhage in March he has had waxing and waning intermittent episodes of weakness, facial droop and slurred speech. This is not a change for him. However he has been more weak than usual for the last 3 days instead of just for transient moments. He is currently receiving B[facility]. He denies having any urinary symptoms were reports that his urine has been darker. He denies any abdominal pain nausea vomiting or diarrhea. He does report chronic urinary frequency but has history of overactive bladder. He is not having any increased urgency from baseline. He reports that he has been feeling more short of breath over the last 24 hours. He states that he has been using a spirometer for the last couple of weeks and is usually able to get volumes of about 2500. But over the last 3 or 4 days his volumes have dropped to about 1500. He denies any fevers or chills. He has not been having any chest pain. In the ER he was incidentally found to be hypoxic the. The patient does have known history of vocal cord paralysis. He reports that he had a swallow eval when he was hospitalized here in the fall which was unremarkable. However nursing staff supply the patient with some water. They then heard the patient choking and coughing quite vigorously. The patient stated that he had taken a drink while laying down. When I tried to get information as to whether not he may be doing this at the prison or having episodes like this at the prison he perseverates on prior hospital stays and does not quite answer the question. Patient is alert oriented x3 and is quite a good historian about some aspects of his recent hospitalizations but is easily distracted infrequently start talking about prior hospitalizations when specifics her asked about his most recent symptoms. The patient reports that after he got out of acute rehab in March he was discharged back to [facility] assisted living. But then he started having worsening symptoms of vertigo. He was subsequently transitioned to [facility]. He states that he has a 1 person assist at the prison but is only been transitioning from the wheelchair to the bed and other seated positions because of his degree of vertigo. He denies any localizing extremity weakness. He has not noticed any lower extremity swelling. He denies orthopnea and in fact when I evaluated the patient he was lying flat on his back with the head of bed only at of 15? Review of Systems Review of Systems: 12 systems were reviewed with pertinent positives and negatives per HPI. Except as documented in the HPI, all other systems were reviewed and are negative. [facility] Past Medical History Medical History (Updated 07/10/23 @ 06:34 by Heidy Love, ) Atrial fibrillation BMI 29.0-29.9,adult BPH (benign prostatic hyperplasia) CHF (congestive heart failure) Cholecystectomy planned CKD (chronic kidney disease) Dens fracture (03/2023) HLD (hyperlipidemia) [place] (hard of hearing) Multiple transverse process fractures (03/2023) IRIS on CPAP Pacemaker Paresis of left vocal cord Scapular fracture (03/2023) Subarachnoid hemorrhage (03/2023) Surgical History Surgical History (Rev
[2023-07-10] MEDS: PIPERACILLIN/TAZ 2.25G/NS 50ML 2.25 GM/50 ML BAG IVPB (05:02)
[2023-07-10 05:47] LABS: Hematocrit 38.9 % (42.0-52.0); Hemoglobin 12.8 g/dL (14.0-18.0); Mean Corpuscular HGB Conc 32.9 g/dl (32-36); Mean Corpuscular Hemoglobin 30.3 pg (26-34); Mean Platelet Volume 9.8 fl (7.4-10.4); Platelet Count Result 181 k/mm3 (150-375); Red Blood Count 4.23 M/mm3 (4.6-6.20); Red Cell Distribution Width 14.1 % (11.5-14.5)
[2023-07-10 05:57] LABS: Anion Gap 5 mmol/L (4-12); Blood Urea Nitrogen 20 mg/dL (9-20); Calcium 8.6 mg/dL (8.4-10.2); Carbon Dioxide 28 mmol/L (22-30); Chloride 101 mmol/L (98-107); Estimated CRCL calculation 31 ml/min; Estimated Glomerular Filt Rate 41; Glucose 117 mg/dL (65-110); Potassium 4.1 mmol/L (3.4-5.0); Sodium 134 mmol/L (137-145)
[2023-07-10] MEDS: AMIODARONE HCL 200 MG TABLET PO ×2 (10:26→16:47)
[2023-07-10] MEDS: PANTOPRAZOLE 40 MG TABLET PO (10:26)
[2023-07-10] MEDS: METOPROLOL SUCCINATE EXT REL 25 MG TABCR PO (10:26)
[2023-07-10] MEDS: MECLIZINE HCL 12.5 MG TABLET PO (10:26)
[2023-07-10] MEDS: TOLNAFTATE 1% POWDER 45 GM BTL 1 APPLIC TOPICAL ×2 (10:27→20:36)
[2023-07-10] MEDS: AZITHROMYCIN 250 MG TABLET 500 MG PO (13:07)
--- NOTE | 2023-07-10 15:23 | PCCCNOTE ---
On 07/10/23, the student, Hortensia Torres, provided care and completed [facility] documentation on this patient. I have reviewed the student's documentation and agree with the findings.
--- NOTE | 2023-07-10 15:27 | P.PNIM_ITS ---
Progress Note: A&P Assessment and Plan (1) Pulmonary embolism: Code(s): I26.99 - Other pulmonary embolism without acute cor pulmonale Status: Acute (2) Aspiration into respiratory tract: Code(s): T17.908A - Unspecified foreign body in respiratory tract, part unspecified causing other injury, initial encounter Status: Acute (3) Acute renal failure superimposed on stage 3 chronic kidney disease: Qualifiers: Acute renal failure type: unspecified Chronic kidney disease stage 3 subtype: stage 3a (GFR 45-59) Qualified Code(s): N17.9 - Acute kidney failure, unspecified; N18.31 - Chronic kidney disease, stage 3a Code(s): N17.9 - Acute kidney failure, unspecified; N18.30 - Chronic kidney disease, stage 3 unspecified Status: Acute (4) Diastolic CHF: Qualifiers: Heart failure chronicity: chronic Qualified Code(s): I50.32 - Chronic diastolic (congestive) heart failure Code(s): I50.30 - Unspecified diastolic (congestive) heart failure Status: Chronic (5) Acute respiratory failure with hypoxia: Code(s): J96.01 - Acute respiratory failure with hypoxia Status: Acute Plan Acute respiratory failure with hypoxia secondary to pulmonary emboli/aspiration pneumonia * Bronchodilators. * Chest x-ray small RT pleural effussion * incentive spirometry while awake. * sputum culture ordered * Rocephin azithromycin * supplemental oxygen therapy to maintain oxygen 92% * monitor for signs of in sepsis aspiration pneumonia * Barium swallow showed penetration * History paresis of left vocal cord * Diet per manager corporate * mildly elevated WBC * Rocephin and azithromycin * Supplemental oxygen as needed continue to wean Acute Pulmonary emboli * V/Q/CT showed a right lower and middle lobe thrombus * History of subarachnoid hemorrhage secondary to fall 2022 * Heparin GTT * Monitor for signs of re-bleed * Transition to PO at discharge * Supplemental oxygen Acute on chronic renal failure * Appears at baseline * Avoid nephrotoxic drugs. * Monitor antihypertensive drug therapy. * Avoid NSAIDs. * Routine CMP monitoring GFR. * Monitor electrolytes especially potassium. HX CHF: Stable resume PO lasix, BB HX AFIB: Resume BB, will be on Heparin gtt HX BPH: Resume Flomax monitor for retention IRIS: CPAP at night HX DENS Fracture: PT/OT Code status: DNR DVT prophylaxis: Heparin Stress ulcer prophylaxis: Protonix 40 daily PT/OT notes: PT/OT pending Disposition: Patient to the telemetry unit with acute respiratory failure with hypoxia secondary to aspiration pneumonia and acute pulmonary embolism. Plan will be patient to return to routine for continued rehab discharge when medically stable. Time Spent With Patient Time with patient: 15 - 25 minutes Subjective Date/time seen: 07/10/23 15:27 Interval history: Admission: Medical Record: 82-year-old male with a past medical history of atrial fibrillation, CHF, BPH, overactive bladder, chronic kidney disease, obstructive sleep apnea requiring CPAP, prior pacemaker placement, chronic vertigo, vocal cord paralysis, multiple falls with recent fall in March complicated by multiple rib fractures, subarachnoid hemorrhage, scapular fracture and dens fracture who presented back to the ER from [facility] due to concern for possible tongue swelling by nursing staff.? The patient and family members deny sensation of tongue swelling.? Si
--- NOTE | 2023-07-10 15:27 | PM.IMPN ---
Progress Note: A&P Assessment and Plan (1) Pulmonary embolism: Code(s): I26.99 - Other pulmonary embolism without acute cor pulmonale Status: Acute (2) Aspiration into respiratory tract: Code(s): T17.908A - Unspecified foreign body in respiratory tract, part unspecified causing other injury, initial encounter Status: Acute (3) Acute renal failure superimposed on stage 3 chronic kidney disease: Qualifiers: Acute renal failure type: unspecified Chronic kidney disease stage 3 subtype: stage 3a (GFR 45-59) Qualified Code(s): N17.9 - Acute kidney failure, unspecified; N18.31 - Chronic kidney disease, stage 3a Code(s): N17.9 - Acute kidney failure, unspecified; N18.30 - Chronic kidney disease, stage 3 unspecified Status: Acute (4) Diastolic CHF: Qualifiers: Heart failure chronicity: chronic Qualified Code(s): I50.32 - Chronic diastolic (congestive) heart failure Code(s): I50.30 - Unspecified diastolic (congestive) heart failure Status: Chronic (5) Acute respiratory failure with hypoxia: Code(s): J96.01 - Acute respiratory failure with hypoxia Status: Acute Plan Acute respiratory failure with hypoxia secondary to pulmonary emboli/aspiration pneumonia Bronchodilators. Chest x-ray small RT pleural effussion incentive spirometry while awake. sputum culture ordered Rocephin azithromycin supplemental oxygen therapy to maintain oxygen 92% monitor for signs of in sepsis aspiration pneumonia Barium swallow showed penetration History paresis of left vocal cord Diet per hr clerk mildly elevated WBC Rocephin and azithromycin Supplemental oxygen as needed continue to wean Acute Pulmonary emboli V/Q/CT showed a right lower and middle lobe thrombus History of subarachnoid hemorrhage secondary to fall 2022 Heparin GTT Monitor for signs of re-bleed Transition to PO at discharge Supplemental oxygen Acute on chronic renal failure Appears at baseline Avoid nephrotoxic drugs. Monitor antihypertensive drug therapy. Avoid NSAIDs. Routine CMP monitoring GFR. Monitor electrolytes especially potassium. HX CHF: Stable resume PO lasix, BB HX AFIB: Resume BB, will be on Heparin gtt HX BPH: Resume Flomax monitor for retention IRIS: CPAP at night HX DENS Fracture: PT/OT Code status: DNR DVT prophylaxis: Heparin Stress ulcer prophylaxis: Protonix 40 daily PT/OT notes: PT/OT pending Disposition: Patient to the telemetry unit with acute respiratory failure with hypoxia secondary to aspiration pneumonia and acute pulmonary embolism. Plan will be patient to return to routine for continued rehab discharge when medically stable. Time Spent With Patient Time with patient: 15 - 25 minutes Subjective Date/time seen: 07/10/23 15:27 Interval history: Admission: Medical Record: 82-year-old male with a past medical history of atrial fibrillation, CHF, BPH, overactive bladder, chronic kidney disease, obstructive sleep apnea requiring CPAP, prior pacemaker placement, chronic vertigo, vocal cord paralysis, multiple falls with recent fall in March complicated by multiple rib fractures, subarachnoid hemorrhage, scapular fracture and dens fracture who presented back to the ER from [facility] due to concern for possible tongue swelling by nursing staff.? The patient and family members deny sensation of tongue swelling.? Since the patient had subarachnoid hemorrhage in March he has had waxing and waning intermittent episodes of weakness, facial droop and slurred speech.? This is not a change for him.? However he has been more weak than usual for the last 3 days instead of just for transient moments.? He is currently receiving Bactrim for urinary tract infection at the [facility].? He denies having any urinary symptoms were reports that his urine has been darker.? He denies any abdom
[2023-07-10 16:35] LABS: INR 1.1; Prothrombin Time 15.2 Seconds (11.1-14.7)
[2023-07-10] MEDS: HEPARIN SOD/D5W 100 UNITS/ML 25,000 UNITS/250 ML BAG 14 UNITS IV CONT (16:47)
[2023-07-10] MEDS: TAMSULOSIN HCL 0.4 MG CAPSULE PO (20:35)
[2023-07-10] MEDS: ATORVASTATIN 20 MG TABLET PO (20:35)
[2023-07-11] VITALS (12 sets, daily range): BP systolic 107–111; BP diastolic 57–63; PULSE 68–85; RESP 18; TEMP 36.3–36.8; O2SAT 93–96
[2023-07-11 07:09] LABS: Hematocrit 35.9 % (42.0-52.0); Hemoglobin 11.6 g/dL (14.0-18.0); Mean Corpuscular HGB Conc 32.3 g/dl (32-36); Mean Corpuscular Hemoglobin 30.2 pg (26-34); Mean Corpuscular Volume 93.5 fl (80-100); Mean Platelet Volume 10.2 fl (7.4-10.4); Platelet Count Result 174 k/mm3 (150-375); Red Blood Count 3.84 M/mm3 (4.6-6.20); Red Cell Distribution Width 14.5 % (11.5-14.5); White Blood Count 8.8 K/mm3 (4.5-10.0)
[2023-07-11 07:24] LABS: Partial Thromboplastin Time 117.1 Seconds (22.3-36.8)
--- NOTE | 2023-07-11 07:47 | P.PNIM_ITS ---
Progress Note: A&P Assessment and Plan (1) Pulmonary embolism: Code(s): I26.99 - Other pulmonary embolism without acute cor pulmonale Status: Acute (2) Aspiration into respiratory tract: Code(s): T17.908A - Unspecified foreign body in respiratory tract, part unspecified causing other injury, initial encounter Status: Acute (3) Acute renal failure superimposed on stage 3 chronic kidney disease: Qualifiers: Acute renal failure type: unspecified Chronic kidney disease stage 3 subtype: stage 3a (GFR 45-59) Qualified Code(s): N17.9 - Acute kidney failure, unspecified; N18.31 - Chronic kidney disease, stage 3a Code(s): N17.9 - Acute kidney failure, unspecified; N18.30 - Chronic kidney disease, stage 3 unspecified Status: Acute (4) Diastolic CHF: Qualifiers: Heart failure chronicity: chronic Qualified Code(s): I50.32 - Chronic diastolic (congestive) heart failure Code(s): I50.30 - Unspecified diastolic (congestive) heart failure Status: Chronic (5) Acute respiratory failure with hypoxia: Code(s): J96.01 - Acute respiratory failure with hypoxia Status: Acute (6) Deep vein thrombosis (DVT) of femoral vein of right lower extremity: Code(s): I82.411 - Acute embolism and thrombosis of right femoral vein Status: Acute Plan Acute respiratory failure with hypoxia secondary to pulmonary emboli/aspiration pneumonia * Bronchodilators. * Chest x-ray small RT pleural effusion * incentive spirometry while awake. * sputum culture ordered * Rocephin azithromycin * Heparin GTT * supplemental oxygen therapy to maintain oxygen 92% wean as tolerated * monitor for signs of in sepsis aspiration pneumonia * Barium swallow showed penetration * History paresis of left vocal cord * Diet per saw repairer * mildly elevated WBC * Rocephin and azithromycin * Supplemental oxygen as needed continue to wean Acute Pulmonary emboli * V/Q/CT showed a right lower and middle lobe thrombus * History of subarachnoid hemorrhage secondary to fall 2022 * Heparin GTT * Monitor for signs of re-bleed * Supplemental oxygen * HX AFIB 07/10: * Transitioned to eliquis PO * Spoke with Dr Vargas Neurologist at [facility] regarding previous HX of subarachnoid hemorrhage states it was minimal and resolved on its own patient would be be safe for anticoagulation. * Requested [facility] records * Neuro Checks Acute DVT * RT Femoral * Heparin gtt * transitioned to eliquis Acute on chronic renal failure * Appears at baseline * Avoid nephrotoxic drugs. * Monitor antihypertensive drug therapy. * Avoid NSAIDs. * Routine CMP monitoring GFR. * Monitor electrolytes especially potassium. HX CHF: Stable resume PO lasix, BB HX AFIB: Resume BB, resumed eliquis HX BPH: Resume Flomax monitor for retention IRIS: CPAP at night HX DENS Fracture: PT/OT Code status: DNR DVT prophylaxis: Heparin Stress ulcer prophylaxis: Protonix 40 daily PT/OT notes: PT/OT pending Disposition: Patient to the telemetry unit with acute respiratory failure with hypoxia secondary to aspiration pneumonia and acute pulmonary embolism and DVT. Plan will be patient to return to [place] for continued rehab at discharge when medically stable. Time Spent With Patient Time with patient: 15 - 25 minutes Subjective Date/time seen: 07/11/23 07:47 Interval history: Admission: Medical Record: 82-
--- NOTE | 2023-07-11 07:47 | PM.IMPN ---
Progress Note: A&P Assessment and Plan (1) Pulmonary embolism: Code(s): I26.99 - Other pulmonary embolism without acute cor pulmonale Status: Acute (2) Aspiration into respiratory tract: Code(s): T17.908A - Unspecified foreign body in respiratory tract, part unspecified causing other injury, initial encounter Status: Acute (3) Acute renal failure superimposed on stage 3 chronic kidney disease: Qualifiers: Acute renal failure type: unspecified Chronic kidney disease stage 3 subtype: stage 3a (GFR 45-59) Qualified Code(s): N17.9 - Acute kidney failure, unspecified; N18.31 - Chronic kidney disease, stage 3a Code(s): N17.9 - Acute kidney failure, unspecified; N18.30 - Chronic kidney disease, stage 3 unspecified Status: Acute (4) Diastolic CHF: Qualifiers: Heart failure chronicity: chronic Qualified Code(s): I50.32 - Chronic diastolic (congestive) heart failure Code(s): I50.30 - Unspecified diastolic (congestive) heart failure Status: Chronic (5) Acute respiratory failure with hypoxia: Code(s): J96.01 - Acute respiratory failure with hypoxia Status: Acute (6) Deep vein thrombosis (DVT) of femoral vein of right lower extremity: Code(s): I82.411 - Acute embolism and thrombosis of right femoral vein Status: Acute Plan Acute respiratory failure with hypoxia secondary to pulmonary emboli/aspiration pneumonia Bronchodilators. Chest x-ray small RT pleural effusion incentive spirometry while awake. sputum culture ordered Rocephin azithromycin Heparin GTT supplemental oxygen therapy to maintain oxygen 92% wean as tolerated monitor for signs of in sepsis aspiration pneumonia Barium swallow showed penetration History paresis of left vocal cord Diet per long chain beamer mildly elevated WBC Rocephin and azithromycin Supplemental oxygen as needed continue to wean Acute Pulmonary emboli V/Q/CT showed a right lower and middle lobe thrombus History of subarachnoid hemorrhage secondary to fall 2022 Heparin GTT Monitor for signs of re-bleed Supplemental oxygen HX AFIB 07/10: Transitioned to eliquis PO Spoke with Dr Vargas Neurologist at [facility] regarding previous HX of subarachnoid hemorrhage states it was minimal and resolved on its own patient would be be safe for anticoagulation. Requested [facility] records Neuro Checks Acute DVT RT Femoral Heparin gtt transitioned to eliquis Acute on chronic renal failure Appears at baseline Avoid nephrotoxic drugs. Monitor antihypertensive drug therapy. Avoid NSAIDs. Routine CMP monitoring GFR. Monitor electrolytes especially potassium. HX CHF: Stable resume PO lasix, BB HX AFIB: Resume BB, resumed eliquis HX BPH: Resume Flomax monitor for retention IRIS: CPAP at night HX DENS Fracture: PT/OT Code status: DNR DVT prophylaxis: Heparin Stress ulcer prophylaxis: Protonix 40 daily PT/OT notes: PT/OT pending Disposition: Patient to the telemetry unit with acute respiratory failure with hypoxia secondary to aspiration pneumonia and acute pulmonary embolism and DVT. Plan will be patient to return to [place] for continued rehab at discharge when medically stable. Time Spent With Patient Time with patient: 15 - 25 minutes Subjective Date/time seen: 07/11/23 07:47 Interval history: Admission: Medical Record: 82-year-old male with a past medical history of atrial fibrillation, CHF, BPH, overactive bladder, chronic kidney disease, obstructive sleep apnea requiring CPAP, prior pacemaker placement, chronic vertigo, vocal cord paralysis, multiple falls with recent fall in March complicated by multiple rib fractures, subarachnoid hemorrhage, scapular fracture and dens fracture who presented back to the ER from [facility] due to concern for possible tongue swelling by nursing staff.? The patient and family member
[2023-07-11] MEDS: AMIODARONE HCL 200 MG TABLET PO ×2 (08:27→17:40)
[2023-07-11] MEDS: PANTOPRAZOLE 40 MG TABLET PO (08:27)
[2023-07-11] MEDS: METOPROLOL SUCCINATE EXT REL 25 MG TABCR PO (08:27)
[2023-07-11] MEDS: AZITHROMYCIN 250 MG TABLET PO (08:28)
[2023-07-11] MEDS: MECLIZINE HCL 12.5 MG TABLET PO (08:28)
[2023-07-11] MEDS: TOLNAFTATE 1% POWDER 45 GM BTL 1 APPLIC TOPICAL ×2 (08:29→20:00)
--- NOTE | 2023-07-11 08:33 | PCPTNOTE ---
attempted eval, waiting 24 hours from time heprin was started for PT eval, RN stated she started heprin at 16:00 on 07/09, will follow
[2023-07-11 13:53] LABS: Partial Thromboplastin Time 47.1 Seconds (22.3-36.8)
[2023-07-11] MEDS: ACETAMINOPHEN 500 MG TABLET 1000 MG PO (20:00)
[2023-07-11] MEDS: ATORVASTATIN 20 MG TABLET PO (20:00)
[2023-07-11] MEDS: APIXABAN 5 MG TABLET 10 MG PO (20:00)
[2023-07-11] MEDS: TAMSULOSIN HCL 0.4 MG CAPSULE PO (20:00)
[2023-07-12] VITALS (13 sets, daily range): BP systolic 101–127; BP diastolic 59–65; PULSE 70–95; RESP 18–20; TEMP 36.2–36.6; O2SAT 94–100
[2023-07-12 04:56] LABS: Hematocrit 34.6 % (42.0-52.0); Hemoglobin 11.1 g/dL (14.0-18.0); Mean Corpuscular HGB Conc 32.1 g/dl (32-36); Mean Corpuscular Hemoglobin 30.1 pg (26-34); Mean Corpuscular Volume 93.8 fl (80-100); Mean Platelet Volume 10.2 fl (7.4-10.4); Platelet Count Result 175 k/mm3 (150-375); Red Blood Count 3.69 M/mm3 (4.6-6.20); Red Cell Distribution Width 14.3 % (11.5-14.5); White Blood Count 9.1 K/mm3 (4.5-10.0)
--- NOTE | 2023-07-12 08:14 | P.PNIM_ITS ---
Progress Note: A&P Assessment and Plan (1) Pulmonary embolism: Code(s): I26.99 - Other pulmonary embolism without acute cor pulmonale Status: Acute (2) Aspiration into respiratory tract: Code(s): T17.908A - Unspecified foreign body in respiratory tract, part unspecified causing other injury, initial encounter Status: Acute (3) Acute renal failure superimposed on stage 3 chronic kidney disease: Qualifiers: Acute renal failure type: unspecified Chronic kidney disease stage 3 subtype: stage 3a (GFR 45-59) Qualified Code(s): N17.9 - Acute kidney failure, unspecified; N18.31 - Chronic kidney disease, stage 3a Code(s): N17.9 - Acute kidney failure, unspecified; N18.30 - Chronic kidney disease, stage 3 unspecified Status: Acute (4) Diastolic CHF: Qualifiers: Heart failure chronicity: chronic Qualified Code(s): I50.32 - Chronic diastolic (congestive) heart failure Code(s): I50.30 - Unspecified diastolic (congestive) heart failure Status: Chronic (5) Acute respiratory failure with hypoxia: Code(s): J96.01 - Acute respiratory failure with hypoxia Status: Acute (6) Deep vein thrombosis (DVT) of femoral vein of right lower extremity: Code(s): I82.411 - Acute embolism and thrombosis of right femoral vein Status: Acute Plan Acute respiratory failure with hypoxia secondary to pulmonary emboli/aspiration pneumonia * Bronchodilators. * Chest x-ray small RT pleural effusion * incentive spirometry while awake. * sputum culture ordered * Rocephin azithromycin * Heparin GTT -stopped-transitioned to eliquis * supplemental oxygen therapy to maintain oxygen 92% wean as tolerated * monitor for signs of sepsis aspiration pneumonia * Barium swallow showed penetration * History paresis of left vocal cord * Diet per ballistic expert * mildly elevated WBC-monitor * Rocephin and azithromycin * Supplemental oxygen as needed continue to wean Acute Pulmonary emboli * V/Q/CT showed a right lower and middle lobe thrombus * History of subarachnoid hemorrhage secondary to fall 2022 * Heparin GTT-stopped 07/10-transitioned to Eliquis * Monitor for signs of re-bleed * Supplemental oxygen * HX AFIB 07/10: * Dr Vargas Neurologist at [facility] regarding previous HX of subarachnoid hemorrhage states it was minimal and resolved on its own patient would be be safe for anticoagulation. * Requested [facility] records * Neuro Checks Acute DVT * RT Femoral * Heparin gtt -transitioned to eliquis Acute on chronic renal failure * Appears at baseline * Avoid nephrotoxic drugs. * Monitor antihypertensive drug therapy. * Avoid NSAIDs. * Routine CMP monitoring GFR. * Monitor electrolytes especially potassium. HX CHF: Stable resume PO lasix, BB HX AFIB: Resume BB, eliquis HX BPH: Resume Flomax monitor for retention IRIS: CPAP at night HX DENS Fracture: PT/OT Code status: DNR DVT prophylaxis: on eliquis Stress ulcer prophylaxis: Protonix 40 daily PT/OT notes: PT/OT pending Disposition: Patient to the telemetry unit with acute respiratory failure with hypoxia secondary to aspiration pneumonia and acute pulmonary embolism and DVT. Plan will be patient to return to [place] for continued rehab at discharge when medically stable. Time Spent With Patient Time with patient: 25 - 35 minutes Subjective Date/time seen: 07/12/23 08:14 Interval history: Admission: Medical Record
--- NOTE | 2023-07-12 08:14 | PM.IMPN ---
Progress Note: A&P Assessment and Plan (1) Pulmonary embolism: Code(s): I26.99 - Other pulmonary embolism without acute cor pulmonale Status: Acute (2) Aspiration into respiratory tract: Code(s): T17.908A - Unspecified foreign body in respiratory tract, part unspecified causing other injury, initial encounter Status: Acute (3) Acute renal failure superimposed on stage 3 chronic kidney disease: Qualifiers: Acute renal failure type: unspecified Chronic kidney disease stage 3 subtype: stage 3a (GFR 45-59) Qualified Code(s): N17.9 - Acute kidney failure, unspecified; N18.31 - Chronic kidney disease, stage 3a Code(s): N17.9 - Acute kidney failure, unspecified; N18.30 - Chronic kidney disease, stage 3 unspecified Status: Acute (4) Diastolic CHF: Qualifiers: Heart failure chronicity: chronic Qualified Code(s): I50.32 - Chronic diastolic (congestive) heart failure Code(s): I50.30 - Unspecified diastolic (congestive) heart failure Status: Chronic (5) Acute respiratory failure with hypoxia: Code(s): J96.01 - Acute respiratory failure with hypoxia Status: Acute (6) Deep vein thrombosis (DVT) of femoral vein of right lower extremity: Code(s): I82.411 - Acute embolism and thrombosis of right femoral vein Status: Acute Plan Acute respiratory failure with hypoxia secondary to pulmonary emboli/aspiration pneumonia Bronchodilators. Chest x-ray small RT pleural effusion incentive spirometry while awake. sputum culture ordered Rocephin azithromycin Heparin GTT -stopped-transitioned to eliquis supplemental oxygen therapy to maintain oxygen 92% wean as tolerated monitor for signs of sepsis aspiration pneumonia Barium swallow showed penetration History paresis of left vocal cord Diet per billiard table mechanic mildly elevated WBC-monitor Rocephin and azithromycin Supplemental oxygen as needed continue to wean Acute Pulmonary emboli V/Q/CT showed a right lower and middle lobe thrombus History of subarachnoid hemorrhage secondary to fall 2022 Heparin GTT-stopped 07/10-transitioned to Eliquis Monitor for signs of re-bleed Supplemental oxygen HX AFIB 07/10: Dr Vargas Neurologist at [facility] regarding previous HX of subarachnoid hemorrhage states it was minimal and resolved on its own patient would be be safe for anticoagulation. Requested [facility] records Neuro Checks Acute DVT RT Femoral Heparin gtt -transitioned to eliquis Acute on chronic renal failure Appears at baseline Avoid nephrotoxic drugs. Monitor antihypertensive drug therapy. Avoid NSAIDs. Routine CMP monitoring GFR. Monitor electrolytes especially potassium. HX CHF: Stable resume PO lasix, BB HX AFIB: Resume BB, eliquis HX BPH: Resume Flomax monitor for retention IRIS: CPAP at night HX DENS Fracture: PT/OT Code status: DNR DVT prophylaxis: on eliquis Stress ulcer prophylaxis: Protonix 40 daily PT/OT notes: PT/OT pending Disposition: Patient to the telemetry unit with acute respiratory failure with hypoxia secondary to aspiration pneumonia and acute pulmonary embolism and DVT. Plan will be patient to return to [place] for continued rehab at discharge when medically stable. Time Spent With Patient Time with patient: 25 - 35 minutes Subjective Date/time seen: 07/12/23 08:14 Interval history: Admission: Medical Record: 82-year-old male with a past medical history of atrial fibrillation, CHF, BPH, overactive bladder, chronic kidney disease, obstructive sleep apnea requiring CPAP, prior pacemaker placement, chronic vertigo, vocal cord paralysis, multiple falls with recent fall in March complicated by multiple rib fractures, subarachnoid hemorrhage, scapular fracture and dens fracture who presented back to the ER from [facility] due to concern for possible tongue swelling by nursing staff.? The p
[2023-07-12] MEDS: MECLIZINE HCL 12.5 MG TABLET PO (09:01)
[2023-07-12] MEDS: PANTOPRAZOLE 40 MG TABLET PO (09:01)
[2023-07-12] MEDS: AMIODARONE HCL 200 MG TABLET PO ×2 (09:01→17:05)
[2023-07-12] MEDS: AZITHROMYCIN 250 MG TABLET PO (09:04)
[2023-07-12] MEDS: APIXABAN 5 MG TABLET 10 MG PO ×2 (09:05→20:28)
[2023-07-12] MEDS: METOPROLOL SUCCINATE EXT REL 25 MG TABCR PO (09:05)
[2023-07-12] MEDS: TOLNAFTATE 1% POWDER 45 GM BTL 1 APPLIC TOPICAL ×2 (11:24→20:28)
--- NOTE | 2023-07-12 15:37 | PCSTNOTE ---
Late entry 07/09 Modified Barium Swallow study completed 07/10/23. Ashley, Hospitalist, and JEANNIE Butcher, notified of results and recommendations and diet order changed to reflect recommendations.
[2023-07-12] MEDS: TAMSULOSIN HCL 0.4 MG CAPSULE PO (20:27)
[2023-07-12] MEDS: ATORVASTATIN 20 MG TABLET PO (20:27)
[2023-07-13] VITALS (12 sets, daily range): BP systolic 107–142; BP diastolic 61–74; PULSE 67–84; RESP 16–20; TEMP 36.2–36.5; O2SAT 96–100
[2023-07-13 05:06] LABS: Hematocrit 36.6 % (42.0-52.0); Hemoglobin 11.6 g/dL (14.0-18.0); Mean Corpuscular HGB Conc 31.7 g/dl (32-36); Mean Corpuscular Hemoglobin 29.8 pg (26-34); Mean Corpuscular Volume 94.1 fl (80-100); Mean Platelet Volume 10.5 fl (7.4-10.4); Platelet Count Result 181 k/mm3 (150-375); Red Blood Count 3.89 M/mm3 (4.6-6.20); White Blood Count 11.1 K/mm3 (4.5-10.0)
[2023-07-13] MEDS: AMIODARONE HCL 200 MG TABLET PO ×2 (10:41→18:12)
[2023-07-13] MEDS: MECLIZINE HCL 12.5 MG TABLET PO (10:41)
[2023-07-13] MEDS: PANTOPRAZOLE 40 MG TABLET PO (10:41)
[2023-07-13] MEDS: TOLNAFTATE 1% POWDER 45 GM BTL 1 APPLIC TOPICAL ×2 (10:42→20:21)
[2023-07-13] MEDS: METOPROLOL SUCCINATE EXT REL 25 MG TABCR PO (10:42)
[2023-07-13] MEDS: AZITHROMYCIN 250 MG TABLET PO (10:42)
[2023-07-13] MEDS: APIXABAN 5 MG TABLET 10 MG PO ×2 (10:42→20:18)
--- NOTE | 2023-07-13 13:12 | P.PNIM_ITS ---
Progress Note: A&P Assessment and Plan (1) Pulmonary embolism: Code(s): I26.99 - Other pulmonary embolism without acute cor pulmonale Status: Acute (2) Aspiration into respiratory tract: Code(s): T17.908A - Unspecified foreign body in respiratory tract, part unspecified causing other injury, initial encounter Status: Acute (3) Acute renal failure superimposed on stage 3 chronic kidney disease: Qualifiers: Acute renal failure type: unspecified Chronic kidney disease stage 3 subtype: stage 3a (GFR 45-59) Qualified Code(s): N17.9 - Acute kidney failure, unspecified; N18.31 - Chronic kidney disease, stage 3a Code(s): N17.9 - Acute kidney failure, unspecified; N18.30 - Chronic kidney disease, stage 3 unspecified Status: Acute (4) Diastolic CHF: Qualifiers: Heart failure chronicity: chronic Qualified Code(s): I50.32 - Chronic diastolic (congestive) heart failure Code(s): I50.30 - Unspecified diastolic (congestive) heart failure Status: Chronic (5) Acute respiratory failure with hypoxia: Code(s): J96.01 - Acute respiratory failure with hypoxia Status: Acute (6) Deep vein thrombosis (DVT) of femoral vein of right lower extremity: Code(s): I82.411 - Acute embolism and thrombosis of right femoral vein Status: Acute (7) Dysphagia: Code(s): R13.10 - Dysphagia, unspecified Status: Chronic Plan Acute respiratory failure with hypoxia secondary to pulmonary emboli/aspiration pneumonia * Bronchodilators. * Chest x-ray small RT pleural effusion * incentive spirometry while awake. * sputum culture ordered * Rocephin azithromycin * Heparin GTT -stopped-transitioned to eliquis * supplemental oxygen therapy to maintain oxygen 92% wean as tolerated * monitor for signs of sepsis aspiration pneumonia/Dysphagia * Barium swallow showed penetration * History paresis of left vocal cord * Diet per leather roller * mildly elevated WBC-monitor * Rocephin and azithromycin * Supplemental oxygen as needed continue to wean 07/12: * Family still concerned about coughing spells could be secondary to Aspiration PNA/PE * ENT consulted for any further recommendations or diagnostic testing * On mucinex/tesslon pearls * This has been a problem for months and getting worse * HX of dysphagia Acute Pulmonary emboli * V/Q/CT showed a right lower and middle lobe thrombus * History of subarachnoid hemorrhage secondary to fall 2022 * Heparin GTT-stopped 07/10-transitioned to Eliquis * Monitor for signs of re-bleed * Supplemental oxygen * HX AFIB 07/10: * Dr Vargas Neurologist at [facility] regarding previous HX of subarachnoid hemorrhage states it was minimal and resolved on its own patient would be be safe for anticoagulation. * Requested [facility] records Neurosurgery stated it appears to be artifactual rather then true SAH * Neuro Checks Acute DVT * RT Femoral * Heparin gtt -transitioned to eliquis Acute on chronic renal failure * Appears at baseline * Avoid nephrotoxic drugs. * Monitor antihypertensive drug therapy. * Avoid NSAIDs. * Routine CMP monitoring GFR. * Monitor electrolytes especially potassium. HX CHF: Stable resume PO lasix, BB HX AFIB: Resume BB, eliquis HX BPH: Resume Flomax monitor for retention IRIS: CPAP at night HX DENS Fracture: PT/OT Code status: DNR DVT prophylaxis: on eliquis Stress ulcer prophylaxis: Protonix 40 daily PT/OT notes: PT/OT pending Disp
--- NOTE | 2023-07-13 13:12 | PM.IMPN ---
Progress Note: A&P Assessment and Plan (1) Pulmonary embolism: Code(s): I26.99 - Other pulmonary embolism without acute cor pulmonale Status: Acute (2) Aspiration into respiratory tract: Code(s): T17.908A - Unspecified foreign body in respiratory tract, part unspecified causing other injury, initial encounter Status: Acute (3) Acute renal failure superimposed on stage 3 chronic kidney disease: Qualifiers: Acute renal failure type: unspecified Chronic kidney disease stage 3 subtype: stage 3a (GFR 45-59) Qualified Code(s): N17.9 - Acute kidney failure, unspecified; N18.31 - Chronic kidney disease, stage 3a Code(s): N17.9 - Acute kidney failure, unspecified; N18.30 - Chronic kidney disease, stage 3 unspecified Status: Acute (4) Diastolic CHF: Qualifiers: Heart failure chronicity: chronic Qualified Code(s): I50.32 - Chronic diastolic (congestive) heart failure Code(s): I50.30 - Unspecified diastolic (congestive) heart failure Status: Chronic (5) Acute respiratory failure with hypoxia: Code(s): J96.01 - Acute respiratory failure with hypoxia Status: Acute (6) Deep vein thrombosis (DVT) of femoral vein of right lower extremity: Code(s): I82.411 - Acute embolism and thrombosis of right femoral vein Status: Acute (7) Dysphagia: Code(s): R13.10 - Dysphagia, unspecified Status: Chronic Plan Acute respiratory failure with hypoxia secondary to pulmonary emboli/aspiration pneumonia Bronchodilators. Chest x-ray small RT pleural effusion incentive spirometry while awake. sputum culture ordered Rocephin azithromycin Heparin GTT -stopped-transitioned to eliquis supplemental oxygen therapy to maintain oxygen 92% wean as tolerated monitor for signs of sepsis aspiration pneumonia/Dysphagia Barium swallow showed penetration History paresis of left vocal cord Diet per manager of human resources mildly elevated WBC-monitor Rocephin and azithromycin Supplemental oxygen as needed continue to wean 07/12: Family still concerned about coughing spells could be secondary to Aspiration PNA/PE ENT consulted for any further recommendations or diagnostic testing On mucinex/tesslon pearls This has been a problem for months and getting worse HX of dysphagia Acute Pulmonary emboli V/Q/CT showed a right lower and middle lobe thrombus History of subarachnoid hemorrhage secondary to fall 2022 Heparin GTT-stopped 07/10-transitioned to Eliquis Monitor for signs of re-bleed Supplemental oxygen HX AFIB 07/10: Dr Vargas Neurologist at [facility] regarding previous HX of subarachnoid hemorrhage states it was minimal and resolved on its own patient would be be safe for anticoagulation. Requested [facility] records Neurosurgery stated it appears to be artifactual rather then true SAH Neuro Checks Acute DVT RT Femoral Heparin gtt -transitioned to eliquis Acute on chronic renal failure Appears at baseline Avoid nephrotoxic drugs. Monitor antihypertensive drug therapy. Avoid NSAIDs. Routine CMP monitoring GFR. Monitor electrolytes especially potassium. HX CHF: Stable resume PO lasix, BB HX AFIB: Resume BB, eliquis HX BPH: Resume Flomax monitor for retention IRIS: CPAP at night HX DENS Fracture: PT/OT Code status: DNR DVT prophylaxis: on eliquis Stress ulcer prophylaxis: Protonix 40 daily PT/OT notes: PT/OT pending Disposition: Patient to the telemetry unit with acute respiratory failure with hypoxia secondary to aspiration pneumonia and acute pulmonary embolism and DVT. Plan will be patient to return to [place] for continued rehab at discharge when medically stable. Time Spent With Patient Time with patient: 15 - 25 minutes Subjective Date/time seen: 07/13/23 13:12 Interval history: Admission: Medical Record: 82-year-old male with a past medical history of atrial fibrillation, CHF, B
--- NOTE | 2023-07-13 17:53 | P.PCNBED_ITS ---
Procedures Other Procedures Procedure 1: Other Procedure: Flexible laryngoscopy. Verbal consent obtained. Nose anesthetized with Afrin lidocaine flexible scope flap past. The pharynx and larynx moved fairly well there is no masses or lesions. The left cord is paretic there is slight move ment. There is significant coating of the right vocal process and compensation there is fairly good glottic closure but there is a gap. Patient tolerated the procedure very well
--- NOTE | 2023-07-13 17:54 | WPDCN ---
Assessment and Plan Assessment and plan (1) Aspiration into respiratory tract: Code(s): T17.908A - Unspecified foreign body in respiratory tract, part unspecified causing other injury, initial encounter Status: Acute Assessment and Plan: ear the cord is slightly less mobile than before. Patient has imaging from February of the neck and more recently of the chest. One could consider reimaging the neck to see if there is masses or lesions causing this issue. The patient verbalized that he would have anything done even if there was. I feel fairly confident saline there was no reason to reimage given the imaging from 4 months ago. For the time being I would consider very aggressive speech therapy to help and educate him on proper swallowing. If the patient was motivated you could consider an awake laryngeal injection to help bulk up the left vocal cord. I would recommend putting the patient asleep unless he is healthy to do so. Awake injection could be performed [facility]. please call me with any questions. (2) Paresis of left vocal cord: Code(s): J38.01 - Paralysis of vocal cords and larynx, unilateral Status: Acute HPI Data of Consult Date/Time: 07/13/23 17:54 Requesting Physician: Heidy Love DO Primary Care Provider: Shaun Dejesus MD Consult Narrative Narrative: Socrates Durand is a 82 year old male with aspiration. Previously seen left paretic hypo mobile cord. Review of Systems Review of Systems: All systems reviewed & are unremarkable except as noted in HPI and below PMFSH Past Medical History Medical History (Updated 07/11/23 @ 07:48 by Ashley Hoyos, HEAD SULFIDE OPERATOR) Atrial fibrillation BMI 29.0-29.9,adult BPH (benign prostatic hyperplasia) CHF (congestive heart failure) Cholecystectomy planned CKD (chronic kidney disease) Dens fracture (03/2023) HLD (hyperlipidemia) [place] (hard of hearing) Multiple transverse process fractures (03/2023) IRIS on CPAP Pacemaker Paresis of left vocal cord Scapular fracture (03/2023) Subarachnoid hemorrhage (03/2023) Surgical History Surgical History History of pacemaker History of right knee joint replacement Hx of hernia repair Family History Family History Father Abdominal aneurysm AAA (abdominal aortic aneurysm) Son Kidney carcinoma Mother Hypertension Sibling COPD (chronic obstructive pulmonary disease) Sibling No problems noted. Social History Social History (Updated 07/10/23 @ 06:00 by Heidy Love DO) Social History: He has been since approximately January 2023. Patient was in his own home alone until fall 2022. At that time he had multiple recurrent hospital stays after which time he transition to assisted living. His while he was hospitalized in January of 2023. He smoked for few years but quit more than 50 years ago. He denies any significant alcohol or illicit substance use. 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 Surrogate decision maker: Ronnie Durand, son. 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
[2023-07-13] MEDS: ATORVASTATIN 20 MG TABLET PO (20:19)
[2023-07-13] MEDS: LORATADINE 10 MG TABLET PO (20:19)
[2023-07-13] MEDS: TAMSULOSIN HCL 0.4 MG CAPSULE PO (20:19)
[2023-07-14] VITALS (12 sets, daily range): BP systolic 106–118; BP diastolic 59–61; PULSE 61–78; RESP 12–26; TEMP 36.5–36.8; O2SAT 92–100
[2023-07-14 05:27] LABS: Hemoglobin 10.9 g/dL (14.0-18.0); Mean Corpuscular HGB Conc 32.1 g/dl (32-36); Mean Corpuscular Hemoglobin 29.9 pg (26-34); Mean Corpuscular Volume 93.4 fl (80-100); Mean Platelet Volume 10.4 fl (7.4-10.4); Platelet Count Result 184 k/mm3 (150-375); Red Blood Count 3.64 M/mm3 (4.6-6.20); Red Cell Distribution Width 13.6 % (11.5-14.5); White Blood Count 10.4 K/mm3 (4.5-10.0)
--- NOTE | 2023-07-14 07:44 | P.PNIM_ITS ---
Progress Note: A&P Assessment and Plan (1) Acute respiratory failure with hypoxia: Code(s): J96.01 - Acute respiratory failure with hypoxia Status: Acute Assessment and Plan: Secondary to patients PE and aspiration pneumonia. * ?Bronchodilators.? * CXR 07/08: small RT pleural effusion * CXR 07/12: Questionable minimal haziness right upper lobe * V/Q/CT showed a right lower and middle lobe thrombus * incentive spirometry while awake.? * sputum culture ordered * Antibiotics: Rocephin (07/09-) and azithromycin (07/10-). Flagyl started for atypical coverage. * Heparin GTT -stopped-transitioned to eliquis * supplemental oxygen therapy to maintain oxygen 92% wean as tolerated * monitor for signs of sepsis (2) Pulmonary embolism: Code(s): I26.99 - Other pulmonary embolism without acute cor pulmonale Status: Acute Assessment and Plan: * V/Q/CT showed a right lower and middle lobe thrombus * History of subarachnoid hemorrhage secondary to fall 2022 * Heparin GTT-stopped 07/10-transitioned to Eliquis * Monitor for signs of re-bleed. No signs of rebleed. * Supplemental oxygen * HX AFIB (3) Aspiration into respiratory tract: Code(s): T17.908A - Unspecified foreign body in respiratory tract, part unspecified causing other injury, initial encounter Status: Acute Assessment and Plan: * History paresis of left vocal cord * Barium swallow showed laryngeal penetration with thin liquids and nectar thick liquids. * Speech obtained a repeat barium swallow today and recommend regular diet, level 7, with mildly thick liquids level 2. * Aggressive speech therapy. Spoke with speech and they plan to revisit patient in the am. * Evaluated by ENT Dr. Griffin who states that due to patients recent imaging in February of the neck there is no need for reimaging at this time. He recommends aggressive speech therapy to help educate him on proper swallowing. He notes that if patient wishes he can obtain a laryngeal injection to help bulk the left vocal cord this can be done at [facility]. * Diet per green end department supervisor * mildly elevated WBC-monitor * CXR 07/12: Questionable minimal haziness right upper lobe * Antibiotics: Rocephin (07/09-) and azithromycin (07/10-). Flagyl started for atypical coverage. * Supplemental oxygen as needed continue to wean (4) Deep vein thrombosis (DVT) of femoral vein of right lower extremity: Code(s): I82.411 - Acute embolism and thrombosis of right femoral vein Status: Acute Assessment and Plan: * Venous doppler 07/09: Acute deep vein thrombosis involving right common femoral vein * Heparin gtt -transitioned to eliquis (5) Acute renal failure superimposed on stage 3 chronic kidney disease: Qualifiers: Acute renal failure type: unspecified Chronic kidney disease stage 3 subtype: stage 3a (GFR 45-59) Qualified Code(s): N17.9 - Acute kidney failure, unspecified; N18.31 - Chronic kidney disease, stage 3a Code(s): N17.9 - Acute kidney failure, unspecified; N18.30 - Chronic kidney disease, stage 3 unspecified Status: Acute Assessment and Plan: * Appears at baseline? * Avoid nephrotoxic drugs.? * Monitor antihypertensive drug therapy.? * Avoid NSAIDs.? * Routine CMP monitoring GFR.? * Monitor electrolytes especially potassium.? (6) Diastolic CHF: Qualifiers: Heart failure chronicity: chronic Qualified Code(s): I50.32 - Chronic diastolic (congestive) heart failure Code(s): I50.30 - Unspecified diastolic (congestive) heart failure Status: Chronic Assessment and Plan: Stable re
--- NOTE | 2023-07-14 07:44 | PM.IMPN ---
Progress Note: A&P Assessment and Plan (1) Acute respiratory failure with hypoxia: Code(s): J96.01 - Acute respiratory failure with hypoxia Status: Acute Assessment and Plan: Secondary to patients PE and aspiration pneumonia. ?Bronchodilators.? CXR 07/08: small RT pleural effusion CXR 07/12: Questionable minimal haziness right upper lobe V/Q/CT showed a right lower and middle lobe thrombus incentive spirometry while awake.? sputum culture ordered Antibiotics: Rocephin (07/09-) and azithromycin (07/10-). Flagyl started for atypical coverage. Heparin GTT -stopped-transitioned to eliquis supplemental oxygen therapy to maintain oxygen 92% wean as tolerated monitor for signs of sepsis (2) Pulmonary embolism: Code(s): I26.99 - Other pulmonary embolism without acute cor pulmonale Status: Acute Assessment and Plan: V/Q/CT showed a right lower and middle lobe thrombus History of subarachnoid hemorrhage secondary to fall 2022 Heparin GTT-stopped 07/10-transitioned to Eliquis Monitor for signs of re-bleed. No signs of rebleed. Supplemental oxygen HX AFIB (3) Aspiration into respiratory tract: Code(s): T17.908A - Unspecified foreign body in respiratory tract, part unspecified causing other injury, initial encounter Status: Acute Assessment and Plan: History paresis of left vocal cord Barium swallow showed laryngeal penetration with thin liquids and nectar thick liquids. Speech obtained a repeat barium swallow today and recommend regular diet, level 7, with mildly thick liquids level 2. Aggressive speech therapy. Spoke with speech and they plan to revisit patient in the am. Evaluated by ENT Dr. Griffin who states that due to patients recent imaging in February of the neck there is no need for reimaging at this time. He recommends aggressive speech therapy to help educate him on proper swallowing. He notes that if patient wishes he can obtain a laryngeal injection to help bulk the left vocal cord this can be done at [facility]. Diet per ship's officer mildly elevated WBC-monitor CXR 07/12: Questionable minimal haziness right upper lobe Antibiotics: Rocephin (07/09-) and azithromycin (07/10-). Flagyl started for atypical coverage. Supplemental oxygen as needed continue to wean (4) Deep vein thrombosis (DVT) of femoral vein of right lower extremity: Code(s): I82.411 - Acute embolism and thrombosis of right femoral vein Status: Acute Assessment and Plan: Venous doppler 07/09: Acute deep vein thrombosis involving right common femoral vein Heparin gtt -transitioned to eliquis (5) Acute renal failure superimposed on stage 3 chronic kidney disease: Qualifiers: Acute renal failure type: unspecified Chronic kidney disease stage 3 subtype: stage 3a (GFR 45-59) Qualified Code(s): N17.9 - Acute kidney failure, unspecified; N18.31 - Chronic kidney disease, stage 3a Code(s): N17.9 - Acute kidney failure, unspecified; N18.30 - Chronic kidney disease, stage 3 unspecified Status: Acute Assessment and Plan: Appears at baseline? Avoid nephrotoxic drugs.? Monitor antihypertensive drug therapy.? Avoid NSAIDs.? Routine CMP monitoring GFR.? Monitor electrolytes especially potassium.? (6) Diastolic CHF: Qualifiers: Heart failure chronicity: chronic Qualified Code(s): I50.32 - Chronic diastolic (congestive) heart failure Code(s): I50.30 - Unspecified diastolic (congestive) heart failure Status: Chronic Assessment and Plan: Stable resume PO lasix, BB (7) BPH (benign prostatic hyperplasia): Code(s): N40.0 - Benign prostatic hyperplasia without lower urinary tract symptoms Status: Chronic Assessment and Plan: Resume Flomax. Monitor for retention. (8) Obstructive sleep apnea: Code(s): G47.33 - Obstructive sleep apnea (adult) (pediatric) Status: Acute Assessment and Plan: CP
[2023-07-14] MEDS: AMIODARONE HCL 200 MG TABLET PO ×2 (08:17→16:32)
[2023-07-14] MEDS: MECLIZINE HCL 12.5 MG TABLET PO (08:17)
[2023-07-14] MEDS: PANTOPRAZOLE 40 MG TABLET PO (08:17)
[2023-07-14] MEDS: AZITHROMYCIN 250 MG TABLET PO (08:17)
[2023-07-14] MEDS: APIXABAN 5 MG TABLET 10 MG PO ×2 (08:18→20:21)
[2023-07-14] MEDS: METOPROLOL SUCCINATE EXT REL 25 MG TABCR PO (08:18)
[2023-07-14] MEDS: metroNIDAZOLE 500 MG/ISO 100ML 500 MG/100 ML BAG 100 MG IVPB ×3 (08:19→23:26)
[2023-07-14] MEDS: TOLNAFTATE 1% POWDER 45 GM BTL 1 APPLIC TOPICAL ×2 (08:19→20:21)
[2023-07-14 09:33] LABS: Alanine Aminotransferase 43 U/L (6-50); Albumin Level 2.9 g/dL (3.5-5.1); Alkaline Phosphatase 116 U/L (38-126); Anion Gap 5 mmol/L (4-12); Aspartate Amino Transferase 39 U/L (17-59); Bilirubin,Total 1.1 mg/dL (0.2-1.3); Blood Urea Nitrogen 22 mg/dL (9-20); Calcium 8.4 mg/dL (8.4-10.2); Carbon Dioxide 25 mmol/L (22-30); Chloride 107 mmol/L (98-107); Estimated CRCL calculation 44 ml/min; Estimated Glomerular Filt Rate > 60; Glucose 96 mg/dL (65-110); Potassium 4.1 mmol/L (3.4-5.0); Sodium 137 mmol/L (137-145)
[2023-07-14] MEDS: ATORVASTATIN 20 MG TABLET PO (20:21)
[2023-07-14] MEDS: LORATADINE 10 MG TABLET PO (20:21)
[2023-07-14] MEDS: TAMSULOSIN HCL 0.4 MG CAPSULE PO (20:21)
[2023-07-15] VITALS (7 sets, daily range): BP systolic 106; BP diastolic 58; PULSE 64–73; RESP 26; TEMP 36.6; O2SAT 91
[2023-07-15 04:15] LABS: Hematocrit 32.2 % (42.0-52.0); Hemoglobin 10.5 g/dL (14.0-18.0); Mean Corpuscular HGB Conc 32.6 g/dl (32-36); Mean Corpuscular Hemoglobin 30.3 pg (26-34); Mean Corpuscular Volume 92.8 fl (80-100); Platelet Count Result 188 k/mm3 (150-375); Red Blood Count 3.47 M/mm3 (4.6-6.20); Red Cell Distribution Width 14.1 % (11.5-14.5)
[2023-07-15 04:29] LABS: Alanine Aminotransferase 39 U/L (6-50); Albumin Level 2.8 g/dL (3.5-5.1); Alkaline Phosphatase 127 U/L (38-126); Anion Gap 5 mmol/L (4-12); Aspartate Amino Transferase 37 U/L (17-59); Bilirubin,Total 0.8 mg/dL (0.2-1.3); Blood Urea Nitrogen 19 mg/dL (9-20); Calcium 8.2 mg/dL (8.4-10.2); Carbon Dioxide 23 mmol/L (22-30); Chloride 111 mmol/L (98-107); Estimated CRCL calculation 44 ml/min; Estimated Glomerular Filt Rate > 60; Glucose 91 mg/dL (65-110); Sodium 139 mmol/L (137-145)
[2023-07-15] MEDS: METOPROLOL SUCCINATE EXT REL 25 MG TABCR PO (08:37)
[2023-07-15] MEDS: metroNIDAZOLE 500 MG/ISO 100ML 500 MG/100 ML BAG 100 MG IVPB (08:37)
[2023-07-15] MEDS: APIXABAN 5 MG TABLET 10 MG PO (08:38)
[2023-07-15] MEDS: TOLNAFTATE 1% POWDER 45 GM BTL 1 APPLIC TOPICAL (08:38)
[2023-07-15] MEDS: AMIODARONE HCL 200 MG TABLET PO (08:38)
[2023-07-15] MEDS: PANTOPRAZOLE 40 MG TABLET PO (08:38)
[2023-07-15] MEDS: MECLIZINE HCL 12.5 MG TABLET PO (08:38)
--- NOTE | 2023-07-15 09:16 | PCSTNOTE ---
Please refer to the repeat Modified Barium Swallow Evaluation in the EMR dated 07/14/23. Per discussion with attending hospitalist and nursing staff, pt. to be seen at a frequency of ST 3-5x/wk for aggressive swallowing therapy.
--- NOTE | 2023-07-15 12:15 | P.DS_ITS ---
DS: Admitting Diagnosis Discharge Date 07/15/2023 Admitting Diagnosis Acute respiratory failure with hypoxia secondary to pulmonary emboli/aspiration pneumonia? DS: Discharge Diagnosis Discharge Diagnosis (1) Pulmonary embolism: Code(s): I26.99 - Other pulmonary embolism without acute cor pulmonale Status: Acute (2) Aspiration into respiratory tract: Code(s): T17.908A - Unspecified foreign body in respiratory tract, part unspecified causing other injury, initial encounter Status: Acute (3) Acute renal failure superimposed on stage 3 chronic kidney disease: Qualifiers: Acute renal failure type: unspecified Chronic kidney disease stage 3 subtype: stage 3a (GFR 45-59) Qualified Code(s): N17.9 - Acute kidney failure, unspecified; N18.31 - Chronic kidney disease, stage 3a Code(s): N17.9 - Acute kidney failure, unspecified; N18.30 - Chronic kidney disease, stage 3 unspecified Status: Acute (4) Diastolic CHF: Qualifiers: Heart failure chronicity: chronic Qualified Code(s): I50.32 - Chronic diastolic (congestive) heart failure Code(s): I50.30 - Unspecified diastolic (congestive) heart failure Status: Chronic (5) Acute respiratory failure with hypoxia: Code(s): J96.01 - Acute respiratory failure with hypoxia Status: Acute (6) Deep vein thrombosis (DVT) of femoral vein of right lower extremity: Code(s): I82.411 - Acute embolism and thrombosis of right femoral vein Status: Acute (7) Dysphagia: Code(s): R13.10 - Dysphagia, unspecified Status: Chronic Plan Acute respiratory failure with hypoxia secondary to pulmonary emboli/aspiration pneumonia * Bronchodilators. * Chest x-ray small RT pleural effusion * incentive spirometry while awake. * sputum culture ordered * Rocephin azithromycin * Heparin GTT -stopped-transitioned to eliquis * supplemental oxygen therapy to maintain oxygen 92% wean as tolerated * monitor for signs of sepsis aspiration pneumonia/Dysphagia * Barium swallow showed penetration * History paresis of left vocal cord * Diet per grain unloader machine * mildly elevated WBC-monitor * Rocephin and azithromycin * Supplemental oxygen as needed continue to wean 07/12: * Family still concerned about coughing spells could be secondary to Aspiration PNA/PE * ENT consulted for any further recommendations or diagnostic testing * On mucinex/tesslon pearls * This has been a problem for months and getting worse * HX of dysphagia Acute Pulmonary emboli * V/Q/CT showed a right lower and middle lobe thrombus * History of subarachnoid hemorrhage secondary to fall 2022 * Heparin GTT-stopped 07/10-transitioned to Eliquis * Monitor for signs of re-bleed * Supplemental oxygen * HX AFIB 07/10: * Dr Vargas Neurologist at [facility] regarding previous HX of subarachnoid hemorrhage states it was minimal and resolved on its own patient would be be safe for anticoagulation. * Requested [facility] records Neurosurgery stated it appears to be artifactual rather then true SAH * Neuro Checks Acute DVT * RT Femoral * Heparin gtt -transitioned to eliquis Acute on chronic renal failure * Appears at baseline * Avoid nephrotoxic drugs. * Monitor antihypertensive drug therapy. * Avoid NSAIDs. * Routine CMP monitoring GFR. * Monitor electrolytes especially potassium. HX CHF: Stable resume PO lasix, BB HX AFIB: Resume BB, eliquis HX BPH: Resume Flomax monitor for retention IRIS: CPAP at night HX DENS Fracture
--- NOTE | 2023-07-15 12:15 | PM.DS ---
DS: Admitting Diagnosis Discharge Date 07/15/2023 Admitting Diagnosis Acute respiratory failure with hypoxia secondary to pulmonary emboli/aspiration pneumonia? DS: Discharge Diagnosis Discharge Diagnosis (1) Pulmonary embolism: Code(s): I26.99 - Other pulmonary embolism without acute cor pulmonale Status: Acute (2) Aspiration into respiratory tract: Code(s): T17.908A - Unspecified foreign body in respiratory tract, part unspecified causing other injury, initial encounter Status: Acute (3) Acute renal failure superimposed on stage 3 chronic kidney disease: Qualifiers: Acute renal failure type: unspecified Chronic kidney disease stage 3 subtype: stage 3a (GFR 45-59) Qualified Code(s): N17.9 - Acute kidney failure, unspecified; N18.31 - Chronic kidney disease, stage 3a Code(s): N17.9 - Acute kidney failure, unspecified; N18.30 - Chronic kidney disease, stage 3 unspecified Status: Acute (4) Diastolic CHF: Qualifiers: Heart failure chronicity: chronic Qualified Code(s): I50.32 - Chronic diastolic (congestive) heart failure Code(s): I50.30 - Unspecified diastolic (congestive) heart failure Status: Chronic (5) Acute respiratory failure with hypoxia: Code(s): J96.01 - Acute respiratory failure with hypoxia Status: Acute (6) Deep vein thrombosis (DVT) of femoral vein of right lower extremity: Code(s): I82.411 - Acute embolism and thrombosis of right femoral vein Status: Acute (7) Dysphagia: Code(s): R13.10 - Dysphagia, unspecified Status: Chronic Plan Acute respiratory failure with hypoxia secondary to pulmonary emboli/aspiration pneumonia Bronchodilators. Chest x-ray small RT pleural effusion incentive spirometry while awake. sputum culture ordered Rocephin azithromycin Heparin GTT -stopped-transitioned to eliquis supplemental oxygen therapy to maintain oxygen 92% wean as tolerated monitor for signs of sepsis aspiration pneumonia/Dysphagia Barium swallow showed penetration History paresis of left vocal cord Diet per sheriff officer mildly elevated WBC-monitor Rocephin and azithromycin Supplemental oxygen as needed continue to wean 07/12: Family still concerned about coughing spells could be secondary to Aspiration PNA/PE ENT consulted for any further recommendations or diagnostic testing On mucinex/tesslon pearls This has been a problem for months and getting worse HX of dysphagia Acute Pulmonary emboli V/Q/CT showed a right lower and middle lobe thrombus History of subarachnoid hemorrhage secondary to fall 2022 Heparin GTT-stopped 07/10-transitioned to Eliquis Monitor for signs of re-bleed Supplemental oxygen HX AFIB 07/10: Dr Vargas Neurologist at [facility] regarding previous HX of subarachnoid hemorrhage states it was minimal and resolved on its own patient would be be safe for anticoagulation. Requested [facility] records Neurosurgery stated it appears to be artifactual rather then true SAH Neuro Checks Acute DVT RT Femoral Heparin gtt -transitioned to eliquis Acute on chronic renal failure Appears at baseline Avoid nephrotoxic drugs. Monitor antihypertensive drug therapy. Avoid NSAIDs. Routine CMP monitoring GFR. Monitor electrolytes especially potassium. HX CHF: Stable resume PO lasix, BB HX AFIB: Resume BB, eliquis HX BPH: Resume Flomax monitor for retention IRIS: CPAP at night HX DENS Fracture: PT/OT Code status: DNR DVT prophylaxis: on eliquis Stress ulcer prophylaxis: Protonix 40 daily PT/OT notes: PT/OT pending Disposition: Patient Discharged to [place] via ambulance will need aggressive speech therapy 3-5 days a weeks. DS: Summary Hospital Course Reason for hospitalization: Acute respiratory failure with hypoxia secondary to pulmonary emboli/aspiration pneumonia? Hospital Course: Admission: Medical Record:
--- NOTE | 2023-07-15 14:48 | PCOTNOTE ---
Pt declined to participate in therapy session on this date. Pt expresses increase fatigue and going to be d/c later today. Pt states that he had a really good workout this AM with PT. HEALTH SOCIAL WORK PROFESSOR reports that pt will be leaving today back to SNF as soon as transport has been secured.
[2023-07-15 15:06] LABS: SARS-CoV-2 RNA PCR Negative (Negative)
== END 2023-07-15 15:30 | DRG 175 ==
LOC: ANHED 07-10 01:53 → ANH2MED 07-10 02:14
PROVIDERS: Nurse Practitioner Family; Student in an Organized Health Care Education/Training Program; Admitting Provider Internal Medicine; Emergency Provider Emergency Medicine; PCP Family Medicine; Visit Provider Internal Medicine
DX: J69.0 Pneumonitis due to inhalation of food and vomit; J96.01 Acute respiratory failure with hypoxia; I26.99 Other pulmonary embolism without acute cor pulmonale; I50.32 Chronic diastolic (congestive) heart failure; N17.9 Acute kidney failure, unspecified; I82.411 Acute embolism and thrombosis of right femoral vein; T17.908A Unspecified foreign body in respiratory tract, part unspecified causing other injury, initial encounter; J38.01 Paralysis of vocal cords and larynx, unilateral; E78.5 Hyperlipidemia, unspecified; G47.33 Obstructive sleep apnea (adult) (pediatric); H91.90 Unspecified hearing loss, unspecified ear; I48.91 Unspecified atrial fibrillation; N18.31 Chronic kidney disease, stage 3a; N40.0 Benign prostatic hyperplasia without lower urinary tract symptoms; N32.81 Overactive bladder; R42 Dizziness and giddiness; Z11.52 Encounter for screening for COVID-19; Z20.822 Contact with and (suspected) exposure to COVID-19; Z95.0 Presence of cardiac pacemaker; Z91.81 History of falling; Z99.89 Dependence on other enabling machines and devices; Z96.651 Presence of right artificial knee joint; Z66 Do not resuscitate; Z87.891 Personal history of nicotine dependence
CPT/HCPCS: 36415; 70450; 71045; 71046; 74177; 78582; 80048; 80053; 81001; 83605; 83735; 83880; 84484; 85025; 85027; 85610; 85730; 87040; 87086; 87635; 87637; 92526; 92611; 93005; 93970; 96365; 96366; 96367; 96375; 97110; 97161; 97165; 97530; 97535; 99291; A9270; A9540; A9558; G0378; J0696; J1644; J1836; J1940; J2543; Q9967

== ENCOUNTER 2023-07-21 09:59 | Emergency (ER) | payer MEDICARE, BC, SELFPAY ==
[2023-07-21] VITALS (7 sets, daily range): BP systolic 93–127; BP diastolic 59–80; PULSE 60–81; RESP 13–25; TEMP 36.6–36.7; O2SAT 96–99
--- NOTE | ~2023-07-21 | CT_ITS ---
CORRECTED REPORT Addendum moved to this report [facility] 07/30/23 This report was recreated on 07/30/23. Original report was ADDENDUM The odontoid process fracture of C2 was present on prior CT cervical spine examination of 03/30/2023. No new cervical spine fracture is detected. EXAMINATION: CT facial & cervical spine wo DATE: 07/21/2023 10:29 INDICATION: Fall. Abrasion to nose, nasal deviation. TECHNIQUE: Computed tomography (CT) of the facial bones and maxillofacial region and cervical spine was performed without intravenous contrast. Automated exposure control and iterative reconstruction technique were employed. Exam dose: 443.81 mGy-cm total exam DLP. COMPARISON: None. FINDINGS: Bilateral nasal plate fractures. There is rightward displacement of the left nasal bone fracture and depression of the distal nasal bone. Prominently leftward deviated nasal septum. The frontal convexities are intact. Orbital rims and larson, maxillary sinus larson, zygomatic arches are intact. No fluid levels of the paranasal sinuses. Normal alignment of the temporal mandibular joints. No mandibular fracture. There is a transverse fracture of the odontoid process and C2. There is severe degenerative disc disease from C3-4 through C6-7. There is fusion and/or severe degenerative change of the possible joints throughout the cervical spine. There is associated mild anterolisthesis at C3-4, C4-5, C5-6, C6-7 and C7-T1. Probable degenerative disc disease in the included upper thoracic spine. Patchy infiltrate and/or interstitial fibrotic change within the right upper lobe. IMPRESSION: Bilateral nasal plate fractures Fracture of the odontoid process of C2 Severe cervical spondylosis Dr. RASHID telephoned the report including C2 odontoid process fracture, bilateral nasal plate fractures and severe cervical spondylosis to emergency room physician Dr. Beverly on 07/21/2023 at 1049 hours. Reviewed, dictated and finalized at [facility]. Reviewed, dictated and finalized at [facility]. The odontoid process fracture of C2 was present on prior CT cervical spine examination of 03/30/2023. No new cervical spine fracture is detected. MTDD IMPRESSION: Bilateral nasal plate fractures Fracture of the odontoid process of C2 Severe cervical spondylosis Dr. RASHID telephoned the report including C2 odontoid process fracture, bilateral nasal plate fractures and severe cervical spondylosis to emergency room physici an Dr. Beverly on 07/21/2023 at 1049 hours.
--- NOTE | ~2023-07-21 | CT_ITS ---
EXAMINATION: CT brain wo con DATE: 07/21/2023 10:29 INDICATION: Fall. Abrasion to nose. Patient on anticoagulant. TECHNIQUE: Computed tomography (CT) of the head was performed without intravenous contrast. The mA wa s adjusted according to patient size. Iterative reconstruction technique was employed. Exam dose: 68 1.00 mGy-cm total exam DLP. COMPARISON: July 09, 2023 CT brain FINDINGS: Bilateral vertebral artery calcifications, basilar artery and prominent bilateral carotid s iphon internal carotid artery calcifications. There is nonspecific diminished attenuation of the cerebral white matter, likely due to chronic small vessel ischemic changes. No intracranial mass lesion or hemorrhage or cerebrovascular accident, midline shift or mass effect i s detected. No subdural or epidural hematoma is detected. There are just a few mastoid air cells on each side with fluid. The mastoid air cells and paranasal s inuses are otherwise well-developed and aerated. There are bilateral nasal bone fractures. No fracture or bone destruction of the cranial vault. IMPRESSION: Bilateral nasal bone fractures No acute intracranial finding or skull fracture is noted Reviewed, dictated and finalized at [facility]. Reviewed, dictated and finalized at [facility].
--- NOTE | 2023-07-21 11:21 | ECG_ITS ---
SEE SCANNED COPY FOR CONFIRMED REPORT MTDD
[2023-07-21 12:07] LABS: Basophils Percent Auto 0.4 % (0.2-1.2); Eosinophils Absolute Auto 0.5 K/mm3 (0-0.3); Hematocrit 35.9 % (42.0-52.0); Hemoglobin 11.2 g/dL (14.0-18.0); Immature Granulocyte Absolute 0.15 K/mm3 (0.00-0.031); Immature Granulocyte Percent A 1.5 % (0-0.5); Lymphocytes Absolute Auto 1.06 K/mm3 (0.9-3.2); Mean Corpuscular HGB Conc 31.2 g/dl (32-36); Mean Corpuscular Hemoglobin 29.9 pg (26-34); Monocytes Absolute Auto 0.6 K/mm3 (0.1-0.6); Monocytes Percent Auto 5.8 % (2.6-8.5); Neutrophils Absolute Auto 7.4 K/mm3 (1.3-6.7); Neutrophils Percent Auto 76.3 % (45.5-73.1); Platelet Count Result 267 k/mm3 (150-375); Red Blood Count 3.74 M/mm3 (4.6-6.20); White Blood Count 9.7 K/mm3 (4.5-10.0)
[2023-07-21 12:19] LABS: Alanine Aminotransferase 35 U/L (6-50); Albumin Level 3.1 g/dL (3.5-5.1); Alkaline Phosphatase 120 U/L (38-126); Anion Gap 6 mmol/L (4-12); Aspartate Amino Transferase 38 U/L (17-59); Bilirubin,Total 0.9 mg/dL (0.2-1.3); Blood Urea Nitrogen 13 mg/dL (9-20); Calcium 8.3 mg/dL (8.4-10.2); Carbon Dioxide 23 mmol/L (22-30); Chloride 108 mmol/L (98-107); Estimated Glomerular Filt Rate 58; Glucose 97 mg/dL (65-110); Potassium 3.6 mmol/L (3.4-5.0); Sodium 137 mmol/L (137-145)
--- NOTE | 2023-07-21 12:35 | ED.FALL ---
HPI - Fall General Chief Complaint: Fall Stated Complaint: fall Time Seen by Provider: 07/21/23 10:07 Source: patient Mode of arrival: EMS Limitations: no limitations History of Present Illness HPI Narrative: 82-year-old with a history of hypertension, AF on Eliquis, CKD, orthostatic hypertension, odontoid fracture , presently residing in a halfway for rehab he is wheelchair-bound was brought in by EMS with the complaints of fall. Patient states that he was trying to reached something on the floor fell forward. Complains of facial pain and bleeding from the nose. No LOC. Denies any neck pain. MD complaint: fall Fall from: wheelchair Fall witnessed: yes, by living facility staff Place fall occurred: halfway/SNF Loss of consciousness: none Prolonged down time: no Location of injury: face Related Data Home Medications Medication Instructions Recorded Confirmed acetaminophen 500 mg tablet 1,000 mg PO Q6H PRN Pain (Scale 04/10/23 07/10/23 Score 1-3) calcium carbonate 500 mg-vitamin 1 tablet PO DAILY 04/10/23 07/10/23 D3 10 mcg (400 unit) tablet (Oyster Shell Calcium-Vitamin D3) polyethylene glycol 3350 17 gram 17 g PO BID PRN Constipation 04/10/23 07/10/23 oral powder packet sennosides 8.6 mg-docusate sodium 2 tab-cap PO BID PRN Constipation 04/10/23 07/10/23 50 mg tablet (Senna Plus) furosemide 20 mg tablet 20 mg PO DAILY 07/10/23 07/10/23 meclizine 12.5 mg tablet 12.5 mg PO DAILY 07/10/23 07/10/23 metoprolol succinate 25 mg 25 mg PO DAILY 07/10/23 07/10/23 tablet,extended release 24 hr nystatin 100,000 unit/gram topical 1 applic topical BID 07/10/23 07/10/23 powder vibegron 75 mg tablet (Gemtesa) 75 mg PO DAILY 07/10/23 07/10/23 Allergies Allergy/AdvReac Type Severity Reaction Status Date / Time carvedilol Allergy Unknown Unknown Verified 04/26/23 10:10 codeine AdvReac Unknown Hallucinati Verified 04/26/23 10:10 ng Review of Systems Review of Systems: All systems reviewed & are unremarkable except as noted in HPI and below Constitutional: Constitutional: Reports no additional constitutional complaints Eyes: Eyes: Reports no additional eye complaints ENT: Reports as per HPI Cardiovascular: Cardiovascular: Reports no additional cardiovascular complaints Respiratory: Respiratory: Reports no additional respiratory complaints Gastrointestinal: Gastrointestinal: Reports no additional gastrointestinal complaints Musculoskeletal: Musculoskeletal: Reports no additional musculoskeletal complaints Integumentary/Breasts: Skin/Breast: Reports system reviewed and no additional complaints, except as docu Neurologic: Reports system reviewed and no additional complaints, except as documented [facility] Past Medical History Medical History Atrial fibrillation BMI 29.0-29.9,adult BPH (benign prostatic hyperplasia) CHF (congestive heart failure) Cholecystectomy planned CKD (chronic kidney disease) Dens fracture (03/2023) HLD (hyperlipidemia) [place] (hard of hearing) Multiple transverse process fractures (03/2023) IRIS on CPAP Pacemaker Paresis of left vocal cord Scapular fracture (03/2023) Subarachnoid hemorrhage (03/2023) Surgical History Surgical History History of pacemaker History of right knee joint replacement Hx of hernia repair Family History Family History Father Abdominal aneurysm AAA (abdominal aortic aneurysm) Son Kidney carcinoma Mother Hypertension Sibling COPD (chronic obstructive pulmonary disease) Sibling No problems noted. Social History Social History (Updated 07/10/23 @ 06:00 by Heidy Love DO) Social History: He has been since approximately January 2023. Patient was in his own home alone until fall 2022. At that time he had multiple recurren
--- NOTE | 2023-07-21 12:37 | PC.NURSE ---
nurse from [facility] called at [phone] for patient update.
--- NOTE | 2023-07-21 13:40 | PC.NURSE ---
attempted to Give report to nurse at [facility] with no answer. called at [phone] and again at [phone]. left a voicemail with call back number. patient and family verbalizes discharge teaching.
--- NOTE | 2023-07-21 13:45 | PC.NURSE ---
JEANNIE Matos from [facility] called at [phone] and I was able to give report and patient update
== END 2023-07-21 13:42 ==
PROVIDERS: Emergency Provider Family Medicine; PCP Family Medicine
DX: S02.2XXA Fracture of nasal bones, initial encounter for closed fracture (principal); S01.21XA Laceration without foreign body of nose, initial encounter; I48.91 Unspecified atrial fibrillation; I13.0 Hypertensive heart and chronic kidney disease with heart failure and stage 1 through stage 4 chronic kidney disease, or unspecified chronic kidney disease; N18.9 Chronic kidney disease, unspecified; I50.9 Heart failure, unspecified; E78.5 Hyperlipidemia, unspecified; N40.0 Benign prostatic hyperplasia without lower urinary tract symptoms; G47.33 Obstructive sleep apnea (adult) (pediatric); S12.100D Unspecified displaced fracture of second cervical vertebra, subsequent encounter for fracture with routine healing; Z99.3 Dependence on wheelchair; Z66 Do not resuscitate; Z95.0 Presence of cardiac pacemaker; Z96.651 Presence of right artificial knee joint; Z87.891 Personal history of nicotine dependence; Z79.01 Long term (current) use of anticoagulants; M47.812 Spondylosis without myelopathy or radiculopathy, cervical region; X58.XXXD Exposure to other specified factors, subsequent encounter; W05.0XXA Fall from non-moving wheelchair, initial encounter
CPT/HCPCS: 12011; 36415; 70450; 70486; 72125; 80053; 85025; 93005; 99284

== ENCOUNTER 2024-05-08 12:20 | Emergency (ER) | payer MEDICARE, BC, SELFPAY ==
[2024-05-08 12:29] VITALS: BP 131/81; PULSE 88; RESP 19; TEMP 36.4; O2SAT 99
--- NOTE | 2024-05-08 13:23 | ED.SOB ---
HPI - SOB/Dyspnea General Chief Complaint: Shortness of Breath/Dyspnea <Zakia Deleon PA-C - Last Filed: 05/09/24 09:14> Stated Complaint: SOB, cough <Zakia Deleon PA-C - Last Filed: 05/09/24 09:14> Time Seen by Provider: 05/08/24 13:23 <Zakia Deleon PA-C - Last Filed: 05/09/24 09:14> Focused HPI: This is a 83 year old male that presents to the ER for shortness of breath. Reports he has been coughing, has a sore throat. Feels like he cant get a good deep breath. Denies fever, chest pain. GENERAL: Elderly, well-nourished, and in no acute distress. HEAD: Normocephalic, atraumatic. CHEST: No respiratory distress. Diffuse wheezing HEART: Regular rate and rhythm.? NEURO: ?Alert and oriented x3. Patient screened in triage and initial orders placed.? ?Additional care and disposition to be based upon?diagnostic testing and treatment. <Zakia Deleon PA-C - Last Filed: 05/09/24 09:14> History of Present Illness HPI Narrative: Patient is a 83-year-old gentleman presents emergency department chief complaint of shortness of breath. Patient reports he has had a cough and has had a strange feeling of his mouth. Family reports that his voice seems to be different than it normally is patient has prior history of CVA <Nathanael Ribera MD - Last Filed: 05/08/24 21:32> Related Data Home Medications: Home Medications ?Medication ?Instructions ?Recorded ?Confirmed ?Last Taken ?Type acetaminophen 500 mg tablet 1,000 mg PO Q6H PRN Pain (Scale 04/10/23 07/10/23 Unknown History Score 1-3) calcium 500 mg (as 1 tablet PO DAILY 04/10/23 07/10/23 Unknown History carbonate)-vitamin D3 10 mcg (400 unit) tablet (Oyster Shell Calcium-Vitamin D3) polyethylene glycol 3350 17 gram 17 g PO BID PRN Constipation 04/10/23 07/10/23 Unknown History oral powder packet sennosides 8.6 mg-docusate sodium 2 tab-cap PO BID PRN Constipation 04/10/23 07/10/23 Unknown History 50 mg tablet (Senna Plus) furosemide 20 mg tablet 20 mg PO DAILY 07/10/23 07/10/23 Unknown History meclizine 12.5 mg tablet 12.5 mg PO DAILY 07/10/23 07/10/23 Unknown History metoprolol succinate 25 mg 25 mg PO DAILY 07/10/23 07/10/23 Unknown History tablet,extended release 24 hr nystatin 100,000 unit/gram topical 1 applic topical BID 07/10/23 07/10/23 Unknown History powder vibegron 75 mg tablet (Gemtesa) 75 mg PO DAILY 07/10/23 07/10/23 Unknown History <Zakia Deleon PA-C - Last Filed: 05/09/24 09:14> Allergies/Adverse Reactions: Allergies Allergy/AdvReac Type Severity Reaction Status Date / Time carvedilol Allergy Unknown Unknown Verified 05/08/24 12:32 codeine AdvReac Unknown Hallucinati Verified 05/08/24 12:32 ng <Zakia Deleon PA-C - Last Filed: 05/09/24 09:14> Review of Systems Review of Systems: A 10 system review of systems was completed on the patient and is negative except for what is stated in the HPI. Nursing and ancillary documentation was reviewed. <Nathanael Ribera MD - Last Filed: 05/08/24 21:32> REPLACED BY [facility] Past Medical History Medical History: Medical History Cholecystectomy planned BMI 29.0-29.9,adult Dens fracture (03/2023) Multiple transverse process fractures (03/2023) Scapular fracture (03/2023) Subarachnoid hemorrhage (03/2023) CKD (chronic kidney disease) Paresis of left vocal cord Pacemaker CHF (congestive heart failure) IRIS on CPAP BPH (benign prostatic hyperplasia) HLD (hyperlipidemia) [place] (hard of hearing) Atrial fibrillation <Zakia Deleon PA-C - Last Filed: 05/09/24 09:14> Surgical History Surgical History: Surgical History Hx of hernia repair History of right knee joint replacement History of pacemaker <Zakia Deleon PA-C - Last Filed: 05/09/24 09:14> Family History Family History: Family History Father Abdominal aneurysm AAA (abdominal aortic aneurysm) Son Kidney carcinoma Mother Hypertension Sibling COPD (chronic obstructive pulmonary disease) Sibling No problems noted. <Zakia Deleon PA-C - Last Filed: 05/09/24 09:14> Social History Social History: Social History Social History: He has been since approximately January 2023. Patient was in his own home alone until fall 2022. At that time he had multiple recurrent hospital stays after which time he transition to assisted living. His while he was hospitalized in January of 2023. He smoked for few years but quit more than 50 years ago. He denies any significant alcohol or illicit substance use. 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 Surrogate decision maker: Ronnie Durand, jay. 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 HEAD: Normocephalic, atraumatic. EYES: PERRLA and EOMI. ENT: Nares clear, no rhinorrhea or epistaxis. Mucous membranes moist. NECK: Supple. CHEST: Clear to auscultation. No respiratory distress. HEART: Regular rate and rhythm. No murmur heard. Normal peripheral pulses. ABDOMEN: Soft, nontender, nondistended, normal active bowel sounds. EXTREMITIES: Normal range of motion. No edema. SKIN: Warm, dry, no rash. NEURO: No focal deficits. Alert and oriented x3. PSYCH: Normal mood and affect. <Nathanael Ribera MD - Last Filed: 05/08/24 21:32> Course Vital Signs Vital signs: Vital Signs Temperature 97.6 F 05/08/24 12:29 Pulse Rate 88 05/08/24 12:29 Respiratory Rate 19 05/08/24 12:29 Blood Pressure 131/81 05/08/24 12:29 Pulse Oximetry 99 05/08/24 12:29 Oxygen Delivery Room Air 05/08/24 12:29 Temperature 97.6 F 05/08/24 12:29 Pulse Rate 78 05/09/24 00:04 Respiratory Rate 13 05/09/24 00:04 Blood Pressure 117/84 05/09/24 00:04 Pulse Oximetry 100 05/09/24 00:04 Oxygen Delivery Room Air 05/08/24 14:41 <Zakia Deleon PA-C - Last Filed: 05/09/24 09:14> Vital Signs Temperature 97.6 F 05/08/24 12:29 Pulse Rate 88 05/08/24 12:29 Respiratory Rate 19 05/08/24 12:29 Blood Pressure 131/81 05/08/24 12:29 Pulse Oximetry 99 05/08/24 12:29 Oxygen Delivery Room Air 05/08/24 12:29 Temperature 97.6 F 05/08/24 12:29 Pulse Rate 78 05/09/24 00:04 Respiratory Rate 13 05/09/24 00:04 Blood Pressure 117/84 05/09/24 00:04 Pulse Oximetry 100 05/09/24 00:04 Oxygen Delivery Room Air 05/08/24 14:41 <Nathanael Ribera MD - Last Filed: 05/08/24 21:32> MDM - SOB/Dyspnea MDM Narrative Medical decision making narrative: Differential diagnosis includes CVA, vocal cord paralysis, upper respiratory infection, There is no signs of airway compromise CT scan of the soft tissue neck showed no airway obstruction The patient is on a anticoagulant CT head showed no acute abnormality Patient has no focal motor deficits of extremities The patient has prior history of vocal cord paralysis the concern is that the patient either had a no other cerebrovascular event or has an underlying infection that has caused his underlying vocal cord paralysis to worsen patient has a pacemaker and is not compatible with our MRI quit our facility it was discussed with the patient and the patient's family at this time they would like to be transferred to [facility] preferentially if worse he does not have availability they would prefer [facility]. The case was discussed with the [facility] transfer Center who was graciously able to accept patient to [facility] <Nathanael Ribera MD - Last Filed: 05/08/24 21:32> Lab Data Result diagrams: 05/08/24 13:37 05/08/24 13:37 <Zakia Deleon PA-C - Last Filed: 05/09/24 09:14> Labs: Lab Results 05/08/24 05/08/24 05/08/24 Range/Units 13:37 17:00 18:43 WBC 12.2 H (4.5-10.0) K/mm3 RBC 4.63 (4.6-6.20) M/mm3 Hgb 14.5 D (14.0-18.0) g/dL Hct 43.7 (42.0-52.0) % MCV 94.4 (80-100) fl MCH 31.3 (26-34) pg MCHC 33.2 (32-36) g/dl RDW 13.7 (11.5-14.5) % Plt Count 172 (150-375) k/mm3 MPV 10.6 H (7.4-10.4) fl Immature Gran % (Auto) 0.7 H (0-0.5) % Neut % (Auto) 77.5 H (45.5-73.1) % Lymph % (Auto) 13.7 L (18.3-44.2) % [place] % (Auto) 6.6 (2.6-8.5) % Eos % (Auto) 1.2 (0-4.4) % Baso % (Auto) 0.3 (0.2-1.2) % Lymph # (Auto) 1.66 (0.9-3.2) K/mm3 [place] # (Auto) 0.8 H (0.1-0.6) K/mm3 Eos # (Auto) 0.2 (0-0.3) K/mm3 Baso # (Auto) 0.0 (0.0-0.1) K/mm3 Abs Immat Gran (auto) 0.08 H (0.00-0.031) K/mm3 Absolute Neuts (auto) 9.4 H (1.3-6.7) K/mm3 Absolute Nucleated RBC 0.000 (0.0-0.012) K/mm3 Nucleated RBC % 0.0 (0.0-0.2) % PT 17.1 H (11.1-14.7) Seconds INR 1.3 APTT 34.8 (22.3-36.8) Seconds Sodium 136 L (137-145) mmol/L Potassium 4.3 (3.4-5.0) mmol/L Chloride 103 (98-107) mmol/L Carbon Dioxide 26 (22-30) mmol/L Anion Gap 7 (4-12) mmol/L BUN 15 (9-20) mg/dL Creatinine 0.98 (0.7-1.3) mg/dL Estim Creat Clear Calc Not Reportable Estimated GFR > 60 (59 - ) Glucose 91 (65-110) mg/dL Calcium 8.8 (8.4-10.2) mg/dL Total Bilirubin 1.7 H (0.2-1.3) mg/dL AST 25 (17-59) U/L ALT 20 (6-50) U/L Alkaline Phosphatase 114 (38-126) U/L Troponin I < 0.012 < 0.012 (0.000-0.034) ng/mL NT-Pro-B Natriuret Pep 535 H (19.9-100) pg/mL Total Protein 7.0 (6.3-8.2) g/dL Albumin 3.8 (3.5-5.1) g/dL Urine Color Yellow (Yellow) Urine Appearance Clear (Clear) Urine pH 7.0 (5.0-9.0) Ur Specific [place] 1.021 (1.001-1.035) Urine Protein Negative (Negative) mg/dL Urine Glucose (UA) Negative (Negative) mg/dL Urine Ketones Negative (Negative) mg/dL Ur Blood (Man) Negative (Negative) Urine Nitrate Negative (Negative) Urine Bilirubin Negative (Negative) Urine Urobilinogen 0.2 (<2.0) mg/dL Add Ur Microanalysis Reviewed Leukocyte Esterase Rfl 1+ H (Negative) CARINE/UL Urine RBC 0-2 (0-2) /hpf Urine WBC 0-5 (0-3) /hpf Ur Squamous Epith Cells None seen (Few) /hpf Urine Bacteria 4+ H /hpf Urine Casts 0-2 Influenza A (RT-PCR) Negative (Negative) Influenza B (RT-PCR) Negative (Negative) RSV (RT-PCR) Negative (Negative) SARS-CoV-2 RNA (RT-PCR) Negative (Negative) <Zakia Deleon PA-C - Last Filed: 05/09/24 09:14> Lab Results 05/08/24 05/08/24 05/08/24 Range/Units 13:37 17:00 18:43 WBC 12.2 H (4.5-10.0) K/mm3 RBC 4.63 (4.6-6.20) M/mm3 Hgb 14.5 D (14.0-18.0) g/dL Hct 43.7 (42.0-52.0) % MCV 94.4 (80-100) fl MCH 31.3 (26-34) pg MCHC 33.2 (32-36) g/dl RDW 13.7 (11.5-14.5) % Plt Count 172 (150-375) k/mm3 MPV 10.6 H (7.4-10.4) fl Immature Gran % (Auto) 0.7 H (0-0.5) % Neut % (Auto) 77.5 H (45.5-73.1) % Lymph % (Auto) 13.7 L (18.3-44.2) % [place] % (Auto) 6.6 (2.6-8.5) % Eos % (Auto) 1.2 (0-4.4) % Baso % (Auto) 0.3 (0.2-1.2) % Lymph # (Auto) 1.66 (0.9-3.2) K/mm3 [place] # (Auto) 0.8 H (0.1-0.6) K/mm3 Eos # (Auto) 0.2 (0-0.3) K/mm3 Baso # (Auto) 0.0 (0.0-0.1) K/mm3 Abs Immat Gran (auto) 0.08 H (0.00-0.031) K/mm3 Absolute Neuts (auto) 9.4 H (1.3-6.7) K/mm3 Absolute Nucleated RBC 0.000 (0.0-0.012) K/mm3 Nucleated RBC % 0.0 (0.0-0.2) % PT 17.1 H (11.1-14.7) Seconds INR 1.3 APTT 34.8 (22.3-36.8) Seconds Sodium 136 L (137-145) mmol/L Potassium 4.3 (3.4-5.0) mmol/L Chloride 103 (98-107) mmol/L Carbon Dioxide 26 (22-30) mmol/L Anion Gap 7 (4-12) mmol/L BUN 15 (9-20) mg/dL Creatinine 0.98 (0.7-1.3) mg/dL Estim Creat Clear Calc Not Reportable Estimated GFR > 60 (59 - ) Glucose 91 (65-110) mg/dL Calcium 8.8 (8.4-10.2) mg/dL Total Bilirubin 1.7 H (0.2-1.3) mg/dL AST 25 (17-59) U/L ALT 20 (6-50) U/L Alkaline Phosphatase 114 (38-126) U/L Troponin I < 0.012 < 0.012 (0.000-0.034) ng/mL NT-Pro-B Natriuret Pep 535 H (19.9-100) pg/mL Total Protein 7.0 (6.3-8.2) g/dL Albumin 3.8 (3.5-5.1) g/dL Urine Color Yellow (Yellow) Urine Appearance Clear (Clear) Urine pH 7.0 (5.0-9.0) Ur Specific [place] 1.021 (1.001-1.035) Urine Protein Negative (Negative) mg/dL Urine Glucose (UA) Negative (Negative) mg/dL Urine Ketones Negative (Negative) mg/dL Ur Blood (Man) Negative (Negative) Urine Nitrate Negative (Negative) Urine Bilirubin Negative (Negative) Urine Urobilinogen 0.2 (<2.0) mg/dL Add Ur Microanalysis Reviewed Leukocyte Esterase Rfl 1+ H (Negative) CARINE/UL Urine RBC 0-2 (0-2) /hpf Urine WBC 0-5 (0-3) /hpf Ur Squamous Epith Cells None seen (Few) /hpf Urine Bacteria 4+ H /hpf Urine Casts 0-2 Influenza A (RT-PCR) Negative (Negative) Influenza B (RT-PCR) Negative (Negative) RSV (RT-PCR) Negative (Negative) SARS-CoV-2 RNA (RT-PCR) Negative (Negative) <Nathanael Ribera MD - Last Filed: 05/08/24 21:32> Imaging Data Radiologist's impression: ITS Impressions Chest X-Ray 05/08/24 14:22 IMPRESSION: 1. No acute cardiopulmonary disease. Head CT 05/08/24 15:57 IMPRESSION: 1. Normal aging brain. Soft Tissue Neck CT 05/08/24 15:59 IMPRESSION: 1. No specific etiology for the patient's symptoms. <Zakia Deleon PA-C - Last Filed: 05/09/24 09:14> Critical Care Time Critical Care Time Critical Care Time: No <Zakia Deleon PA-C - Last Filed: 05/09/24 09:14> Discharge Plan Discharge Clinical Impression: Vocal cord paralysis <Zakia Deleon PA-C - Last Filed: 05/09/24 09:14> Patient Disposition: Acute Care Hospital <Zakia Deleon PA-C - Last Filed: 05/09/24 09:14> Condition: Stable <Zakia Deleon PA-C - Last Filed: 05/09/24 09:14> Patient Language: Chinese <CODY Peacock Last Filed: 05/09/24 09:14> Prescriptions: No Action meclizine 12.5 mg tablet 12.5 mg PO DAILY furosemide 20 mg tablet 20 mg PO DAILY metoprolol succinate 25 mg Tablet Extended Release 24 Hr 25 mg PO DAILY nystatin 100,000 unit/gram powder 1 applic TOPICAL BID Rx Instructions: jing area and scrotum Gemtesa 75 mg Tablet 75 mg PO DAILY Eliquis 5 mg Tablet 5 mg PO Q12HR Qty: 1 0RF Rx Instructions: 2 Tablets (10mg) BID PO through 07/17 0900 (6 more doses) then 1 tab (5MG) BID PO starting on 07/17 at 2100 loratadine 10 mg Tablet 10 mg PO QHS Qty: 1 0RF amoxicillin-pot clavulanate 875-125 mg tablet 1 tablet PO Q12H Qty: 4 0RF acetaminophen 500 mg tablet 1,000 mg PO Q6H PRN (Reason: Pain (Scale Score 1-3)) polyethylene glycol 3350 17 gram Powder In Packet 17 g PO BID PRN (Reason: Constipation) sennosides-docusate sodium [Senna Plus] 8.6-50 mg Tablet 2 tab-cap PO BID PRN (Reason: Constipation) calcium carbonate-vitamin D3 [Oyster Shell Calcium-Vit D3] 500 mg-10 mcg (400 unit) Tablet 1 tablet PO DAILY meclizine 12.5 mg Tablet 25 mg PO Q12H PRN (Reason: Dizziness) Qty: 30 0RF methocarbamol 500 mg Tablet 500 mg PO TID Qty: 30 0RF atorvastatin 20 mg tablet 20 mg PO HS Qty: 90 0RF amiodarone [Pacerone] 200 mg tablet 200 mg PO BID Qty: 180 0RF tamsulosin 0.4 mg capsule 0.4 mg PO HS Qty: 90 0RF <Zakia Deleon PA-C - Last Filed: 05/09/24 09:14> Follow-up/Referrals: Shaun Dejesus MD [Primary Care Provider] - <Zakia Deleon PA-C - Last Filed: 05/09/24 09:14>
[2024-05-08] MEDS: methylPREDNISolone SOD SUCC 125 MG VIAL IV PUSH (13:40)
[2024-05-08] MEDS: IPRATROPIUM 0.5 MG/ALBUTEROL SULFATE 2.5 MG AMPUL.NEB 3 ML INHALATION (13:49)
[2024-05-08 13:50] LABS: Basophils Percent Auto 0.3 % (0.2-1.2); Eosinophils Absolute Auto 0.2 K/mm3 (0-0.3); Eosinophils Percent Auto 1.2 % (0-4.4); Hematocrit 43.7 % (42.0-52.0); Hemoglobin 14.5 g/dL (14.0-18.0); Immature Granulocyte Absolute 0.08 K/mm3 (0.00-0.031); Immature Granulocyte Percent A 0.7 % (0-0.5); Lymphocytes Absolute Auto 1.66 K/mm3 (0.9-3.2); Lymphocytes Percent Auto 13.7 % (18.3-44.2); Mean Corpuscular HGB Conc 33.2 g/dl (32-36); Mean Corpuscular Hemoglobin 31.3 pg (26-34); Mean Corpuscular Volume 94.4 fl (80-100); Mean Platelet Volume 10.6 fl (7.4-10.4); Monocytes Absolute Auto 0.8 K/mm3 (0.1-0.6); Monocytes Percent Auto 6.6 % (2.6-8.5); Neutrophils Absolute Auto 9.4 K/mm3 (1.3-6.7); Neutrophils Percent Auto 77.5 % (45.5-73.1); Platelet Count Result 172 k/mm3 (150-375); Red Blood Count 4.63 M/mm3 (4.6-6.20); Red Cell Distribution Width 13.7 % (11.5-14.5); White Blood Count 12.2 K/mm3 (4.5-10.0)
[2024-05-08 14:00] LABS: Alanine Aminotransferase 20 U/L (6-50); Albumin Level 3.8 g/dL (3.5-5.1); Alkaline Phosphatase 114 U/L (38-126); Anion Gap 7 mmol/L (4-12); Aspartate Amino Transferase 25 U/L (17-59); Bilirubin,Total 1.7 mg/dL (0.2-1.3); Blood Urea Nitrogen 15 mg/dL (9-20); Calcium 8.8 mg/dL (8.4-10.2); Carbon Dioxide 26 mmol/L (22-30); Chloride 103 mmol/L (98-107); Estimated Glomerular Filt Rate > 60; Glucose 91 mg/dL (65-110); Potassium 4.3 mmol/L (3.4-5.0); Sodium 136 mmol/L (137-145)
[2024-05-08 14:06] LABS: INR 1.3; Prothrombin Time 17.1 Seconds (11.1-14.7)
[2024-05-08 14:07] LABS: Partial Thromboplastin Time 34.8 Seconds (22.3-36.8)
[2024-05-08 14:26] LABS: Influenza A QL RT-PCR Negative (Negative); Influenza B QL RT-PCR Negative (Negative); RSV RNA, RT-PCR Negative (Negative); SARS-CoV-2 RNA PCR Negative (Negative)
[2024-05-08 14:41] VITALS: O2SAT 100
[2024-05-08 15:54] LABS: Troponin I < 0.012 ng/mL (0.000-0.034)
[2024-05-08 17:20] LABS: NT Pro B Type Natriuretic Pept 535 pg/mL (19.9-100)
[2024-05-08 17:26] LABS: Troponin I < 0.012 ng/mL (0.000-0.034)
[2024-05-08 17:36] VITALS: BP 156/89; PULSE 86; RESP 16; O2SAT 100
[2024-05-08 18:20] VITALS: BP 183/90; PULSE 85; RESP 16; O2SAT 100
[2024-05-08 19:19] LABS: Add Urine Microscopic? YES; Appearance Urine Clear (Clear); Bacteria Urine 4+ /hpf; Bilirubin Urine Negative (Negative); Blood Urine Negative (Negative); Color Urine Yellow (Yellow); Glucose Urine UA Negative (Negative); Ketones Urine Negative (Negative); Leukocyte Esterase Ur 1+ LEU/UL (Negative); Need Manual Microscopic Reviewed; Nitrate Urine Negative (Negative); Non Pathogenic Casts 0-2; Protein Urine Negative (Negative); RBC Urine 0-2 /hpf (0-2); Specific Grav Ur 1.021 (1.001-1.035); Squamous Epithelial Cell Urine None Seen /hpf (Few); Urobilinogen Urine 0.2 mg/dL (<2.0); WBC Urine 0-5 /hpf (0-3)
[2024-05-08 19:33] VITALS: BP 130/77; PULSE 91; RESP 18; O2SAT 99
--- NOTE | 2024-05-08 21:06 | PC.NURSE ---
Person to notify for updates: Judy ([phone])
[2024-05-08 22:56] VITALS: BP 128/73; PULSE 69; RESP 15; O2SAT 99
[2024-05-09 00:04] VITALS: BP 117/84; PULSE 78; RESP 13; O2SAT 100
== END 2024-05-09 00:55 | disposition short-term general hospital (02) ==
PROVIDERS: Physician Assistant; Emergency Provider Emergency Medicine; PCP Family Medicine
DX: J38.00 Paralysis of vocal cords and larynx, unspecified (principal); Z20.822 Contact with and (suspected) exposure to COVID-19; N18.9 Chronic kidney disease, unspecified; I50.9 Heart failure, unspecified; I48.91 Unspecified atrial fibrillation; E78.5 Hyperlipidemia, unspecified; N40.0 Benign prostatic hyperplasia without lower urinary tract symptoms; G47.33 Obstructive sleep apnea (adult) (pediatric); Z66 Do not resuscitate; Z95.0 Presence of cardiac pacemaker; Z96.651 Presence of right artificial knee joint; Z77.22 Contact with and (suspected) exposure to environmental tobacco smoke (acute) (chronic); Z79.01 Long term (current) use of anticoagulants; Z79.899 Other long term (current) drug therapy; I44.7 Left bundle-branch block, unspecified
CPT/HCPCS: 36415; 70450; 70491; 71046; 80053; 81001; 83880; 84484; 85025; 85610; 85730; 87086; 87181; 87637; 93005; 94640; 96374; 99285; J2919; Q9967

== ENCOUNTER 2025-01-28 18:01 | Emergency (ER) | payer MEDICARE, BC, SELFPAY ==
--- NOTE | ~2025-01-28 | CT_ITS ---
EXAMINATION: CTA chest PE protocol DATE: 01/28/2025 20:52 INDICATION: Shortness of breath. Atrial fibrillation. TECHNIQUE: Computed tomography angiography (CTA) of the chest was performed with 100 mL Omnipaque-350 intravenous contrast timed to evaluate the pulmonary arteries. Coronal maximum intensity projection 3D-reconstructions were created by the technologist. Automated exposure control and iterative reconstruction technique were employed. The dose-length product was 667.13 mGy-cm. COMPARISON: Chest x-ray dated 01/28/2025. CT abdomen pelvis dated 07/09/2023. FINDINGS: No acute pulmonary findings. No evidence of pulmonary emboli. Thoracic aorta shows no acute findings. Multiple large cystic masses of the liver are stable in appearance from previous CT examination. IMPRESSION: 1. No evidence of pulmonary emboli. Thoracic aorta shows no acute findings. Reviewed, dictated and finalized at location T. 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
--- NOTE | ~2025-01-28 | XR_ITS ---
EXAMINATION: XR chest 1V portable DATE: 01/28/2025 18:26 INDICATION: Chest pain TECHNIQUE: A single frontal view of the chest was obtained. COMPARISON: Chest x-ray dated 05/08/2024 FINDINGS: Heart size is normal. Atherosclerotic aorta. Lungs are free of acute processes. Pacemaker device in place. IMPRESSION: 1. No acute findings. Atherosclerotic aorta. Pacemaker in place. Reviewed, dictated and finalized at location T. [employer]
--- NOTE | 2025-01-28 18:07 | ECG_ITS ---
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
[2025-01-28 18:10] VITALS: BP 157/91; PULSE 91; RESP 16; TEMP 36.3; O2SAT 99
[2025-01-28 18:17] VITALS: BP 147/96; PULSE 85; RESP 20; O2SAT 99
[2025-01-28 18:24] LABS: Hematocrit 47.1 % (42.0-52.0); Hemoglobin 15.5 g/dL (14.0-18.0); Immature Granulocyte Percent A 0.8 % (0-0.5); Lymphocytes Absolute Auto 3.16 K/mm3 (0.9-3.2); Mean Corpuscular HGB Conc 32.9 g/dl (32-36); Mean Corpuscular Hemoglobin 31.1 pg (26-34); Mean Corpuscular Volume 94.4 fl (80-100); Nucleated Red Blood Cells Absolute Auto 0.000 K/mm3 (0.0-0.012); Nucleated Red Blood Cells Perc 0.0 % (0.0-0.2); Platelet Count Result 157 k/mm3 (150-375); Red Blood Count 4.99 M/mm3 (4.6-6.20); White Blood Count 9.5 K/mm3 (4.5-10.0)
[2025-01-28 18:37] LABS: Alanine Aminotransferase 24 U/L (6-50); Albumin Level 4.4 g/dL (3.5-5.1); Alkaline Phosphatase 114 U/L (38-126); Anion Gap 9 mmol/L (4-12); Aspartate Amino Transferase 33 U/L (17-59); Bilirubin,Total 1.8 mg/dL (0.2-1.3); Blood Urea Nitrogen 18 mg/dL (9-20); Calcium 8.8 mg/dL (8.4-10.2); Carbon Dioxide 25 mmol/L (22-30); Chloride 101 mmol/L (98-107); Estimated CRCL calculation 54 ml/min; Estimated Glomerular Filt Rate > 60; Glucose 90 mg/dL (65-110); INR 1.2; Lipase 97 U/L (23-300); Partial Thromboplastin Time 33.8 Seconds (22.3-36.8); Potassium 4.2 mmol/L (3.4-5.0); Prothrombin Time 15.6 Seconds (11.1-14.7); Sodium 135 mmol/L (137-145); Total Protein 7.9 g/dL (6.3-8.2)
[2025-01-28 18:48] LABS: NT Pro B Type Natriuretic Pept 196 pg/mL (19.9-100); Troponin I < 0.012 ng/mL (0.000-0.034)
--- NOTE | 2025-01-28 19:01 | ED_ITS ---
HPI - Chest Pain General Chief Complaint: Chest Pain Stated Complaint: CP, SOB, HTN Time Seen by Provider: 01/28/25 18:17 History of Present Illness HPI narrative: Patient is an 84-year-old male who presents to the ER with shortness of breath and chest pressure. He reports his symptoms started this morning. Patient reports ?it's hard to inhale. He reports the pain is to the left side of his mid sternum. Patient reports he had diarrhea this morning and took two Imodium. He endorses significant fatigue. Patient endorses a history of a pacemaker, atrial fibrillation, vocal cord paralysis, and a hemorrhagic stroke. He denies any recent fevers, wheezing, or acute back pain. Related Data Home Medications ?Medication ?Instructions ?Recorded ?Confirmed ?Last Taken ?Type acetaminophen 500 mg tablet 1,000 mg PO Q6H PRN Pain ( Scale 04/10/23 07/17/24 Unknown History Score 1-3) calcium 500 mg (as 1 tablet PO DAILY 04/10/23 0 07/17/24 Unknown History carbonate)-vitamin D3 10 mcg (400 unit) tablet (Oyster Shell Calcium-Vitamin D3) sennosides 8.6 mg-docusate sodium 2 tab-cap PO BID PRN Constipation 04/10/23 07/17/24 Unknown History 50 mg tablet (Senna Plus) furosemide 20 mg tablet 20 mg PO DAILY 07/10/2311/03 Unknown History meclizine 12.5 mg tablet 12.5 mg PO DAILY 07/10/23 Unknown History metoprolol succinate 25 mg 25 mg PO DAILY 07/10/2311/03 Unknown History tablet,extended release 24 hr Allergies Allergy/AdvReac Type Severity Reaction Status Date / Time carvedilol Allergy Unknown Unknown Verified 01/28/25 18:33 codeine AdvReac Unknown Hallucinati Verified 01/28/25 18:33 ng Review of Systems 2 Review of Systems: All systems reviewed & are unremarkable except as noted in HPI and below PMFSH Past Medical History Medical History Cholecystectomy planned BMI 29.0-29.9,adult Dens fracture (03/2023) Multiple transverse process fractures (03/2023) Scapular fracture (03/2023) Subarachnoid hemorrhage (03/2023) CKD (chronic kidney disease) Paresis of left vocal cord Pacemaker CHF (congestive heart failure) IRIS on CPAP BPH (benign prostatic hyperplasia) HLD (hyperlipidemia) ELIM IRA (hard of hearing) Atrial fibrillation Surgical History Surgical History Hx of hernia repair History of right knee joint replacement History of pacemaker Family History Family History Father Abdominal aneurysm AAA (abdominal aortic aneurysm) Son Kidney carcinoma Mother Hypertension Sibling COPD (chronic obstructive pulmonary disease) Sibling No problems noted. Social History Social History Social History: He has been since approximately January 2023. Patient was in his own home alone until fall 2022. At that time he had multiple recurrent hospital stays after which time he transition to assisted living. His while he was hospitalized in January of 2023. He smoked for few years but quit more than 50 years ago. He denies any significant alcohol or illicit substance use. 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 Surrogate decision maker: Ronnie Durand, son. 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 HEAD: Normocephalic, atraumatic. NECK: Supple. No adenopathy, no masses. RESPIRATORY: Airway patent, respirations nonlabored. Clear to auscultation bilaterally, no rales, rhonchi, wheezing. CARDIOVASCULAR: Regular rate and rhythm without murmurs, rubs, or gallops. Peripheral pulses 2+ and equal bilaterally. ABDOMINAL: Soft, nontender, nondistended, no hepatosplenomegaly. Normoactive BS. MUSCULOSKELETAL: Moves all extremities. Strength/ROM intact without gross deformities. SKIN: Warm, dry, normal color. No rashes. NEURO: A&O X3. Speech clear. Cranial nerves II-XII intact. No ataxic movements. PSYCHIATRIC: Appropriate mood and affect. Normal interaction. Course Vital Signs Vital signs: Vital Signs Temperature 36.3 C L 01/28/25 18:10 Pulse Rate 91 01/28/25 18:10 Respiratory Rate 16 01/28/25 18:10 Blood Pressure 157/91 H 01/28/25 18:10 Pulse Oximetry 99 01/28/25 18:10 Oxygen Delivery Room Air 01/28/25 18:10 Temperature 36.3 C L 01/28/25 18:10 Pulse Rate 80 01/28/25 19:30 Respiratory Rate 16 01/28/25 19:30 Blood Pressure 147/96 H 01/28/25 18:17 Pulse Oximetry 98 01/28/25 19:22 Oxygen Delivery Room Air 01/28/25 19:22 Fraction of Inspired Oxygen 21 01/28/25 19:22 MDM - Chest Pain MDM Narrative Medical decision making narrative: Patient is an 84-year-old male who presents to the ER with shortness of breath and chest pressure. He reports his symptoms started this morning. Patient reports ?it's hard to inhale. He reports the pain is to the left side of his mid sternum. Patient reports he had diarrhea this morning and took two Imodium. He endorses significant fatigue. Patient endorses a history of a pacemaker, atrial fibrillation, vocal cord paralysis, and a hemorrhagic stroke. He denies any recent fevers, wheezing, or acute back pain. Labs Ordered: CBC, CMP, proBNP, COVID/flu/RSV, troponin, UA, lipase, PTT, INR Imaging Ordered: Chest x-ray, chest CTA PE protocol Medications Ordered: DuoNeb, Keflex p.o. Results: Pt's CT scan indicates No acute pulmonary findings. No evidence of pulmonary emboli. Thoracic aorta shows no acute findings. Multiple large cystic masses of the liver are stable in appearance from previous CT examination. Diagnosis: Urinary tract infection, shortness of breath Patient Education/Shared MDM: Results of lab work and imaging shared with patient. He endorses improvement of symptoms following DuoNeb administration. Patient strongly advised to maintain hydration status upon discharge and follow- up with his PCP as soon as possible for further evaluation. He will be discharged home with a prescription for an albuterol inhaler and Keflex. Strict return precautions provided. Patient verbalized understanding and is in agreement with plan. Vital signs stable at time of discharge. All questions answered. Differential Diagnosis Differential diagnosis: Likely atypical chest pain, st elevation myocardial infarction, costochondritis and other (Urinary tract infection, PE, CHF exacerbation) Lab Data Attestation: I reviewed the patient's lab results. 01/28/25 18:18 01/28/25 18:18 Labs: Lab Results 01/28/25 01/28/25 01/28/25 Range/Units 18:18 18:18 21:09 WBC 9.5 (4.5-10.0) K/mm3 RBC 4.99 (4.6-6.20) M/mm3 Hgb 15.5 (14.0-18.0) g/dL Hct 47.1 (42.0-52.0) % MCV 94.4 (80-100) fl MCH 31.1 (26-34) pg MCHC 32.9 (32-36) g/dl RDW 13.9 (11.5-14.5) % Plt Count 157 (150-375) k/mm3 MPV 11.1 H (7.4-10.4) fl Immature Gran % (Auto) 0.8 H (0-0.5) % Neut % (Auto) 53.5 (45.5-73.1) % Lymph % (Auto) 33.3 (18.3-44.2) % [place] % (Auto) 8.4 (2.6-8.5) % Eos % (Auto) 3.5 (0-4.4) % Baso % (Auto) 0.5 (0.2-1.2) % Lymph # (Auto) 3.16 (0.9-3.2) K/mm3 [place] # (Auto) 0.8 H (0.1-0.6) K/mm3 Eos # (Auto) 0.3 (0-0.3) K/mm3 Baso # (Auto) 0.1 (0.0-0.1) K/mm3 Abs Immat Gran (auto) 0.08 H (0.00-0.031) K/mm3 Absolute Neuts (auto) 5.1 (1.3-6.7) K/mm3 Absolute Nucleated RBC 0.000 (0.0-0.012) K/mm3 Nucleated RBC % 0.0 (0.0-0.2) % PT 15.6 H (11.1-14.7) Seconds INR 1.2 APTT 33.8 (22.3-36.8) Seconds Sodium 135 L (137-145) mmol/L Potassium 4.2 (3.4-5.0) mmol/L Chloride 101 (98-107) mmol/L Carbon Dioxide 25 (22-30) mmol/L Anion Gap 9 (4-12) mmol/L BUN 18 (9-20) mg/dL Creatinine 1.07 (0.7-1.3) mg/dL Estim Creat Clear Calc 54 ml/min Estimated GFR > 60 (59 - ) Glucose 90 (65-110) mg/dL Calcium 8.8 (8.4-10.2) mg/dL Total Bilirubin 1.8 H (0.2-1.3) mg/dL AST 33 (17-59) U/L ALT 24 (6-50) U/L Alkaline Phosphatase 114 (38-126) U/L Troponin I < 0.012 (0.000-0.034) ng/mL NT-Pro-B Natriuret Pep 196 H Cancelled (19.9-100) pg/mL Total Protein 7.9 (6.3-8.2) g/dL Albumin 4.4 (3.5-5.1) g/dL Lipase 97 (23-300) U/L Urine Color Yellow (Yellow) Urine Appearance Clear (Clear) Urine pH 5.5 (5.0-9.0) Ur Specific [place] 1.025 (1.001-1.035) Urine Protein Negative (Negative) mg/dL Urine Glucose (UA) Negative (Negative) mg/dL Urine Ketones Negative (Negative) mg/dL Ur Blood (Man) Negative (Negative) Urine Nitrate Negative (Negative) Urine Bilirubin Negative (Negative) Urine Urobilinogen 0.2 (<2.0) mg/dL Leukocyte Esterase Rfl 2+ H (Negative) CARINE/UL Urine RBC 0-2 (0-2) /hpf Urine WBC 11-20 H (0-3) /hpf Ur Squamous Epith Cells None seen (Few) /hpf Urine Bacteria None seen /hpf Urine Casts 0-2 Influenza A (RT-PCR) Negative (Negative) Influenza B (RT-PCR) Negative (Negative) RSV (RT-PCR) Negative (Negative) SARS-CoV-2 RNA (RT-PCR) Negative (Negative) 01/28/25 Range/Units 21:22 WBC (4.5-10.0) K/mm3 RBC (4.6-6.20) M/mm3 Hgb (14.0-18.0) g/dL Hct (42.0-52.0) % MCV (80-100) fl MCH (26-34) pg MCHC (32-36) g/dl RDW (11.5-14.5) % Plt Count (150-375) k/mm3 MPV (7.4-10.4) fl Immature Gran % (Auto) (0-0.5) % Neut % (Auto) (45.5-73.1) % Lymph % (Auto) (18.3-44.2) % [place] % (Auto) (2.6-8.5) % Eos % (Auto) (0-4.4) % Baso % (Auto) (0.2-1.2) % Lymph # (Auto) (0.9-3.2) K/mm3 [place] # (Auto) (0.1-0.6) K/mm3 Eos # (Auto) (0-0.3) K/mm3 Baso # (Auto) (0.0-0.1) K/mm3 Abs Immat Gran (auto) (0.00-0.031) K/mm3 Absolute Neuts (auto) (1.3-6.7) K/mm3 Absolute Nucleated RBC (0.0-0.012) K/mm3 Nucleated RBC % (0.0-0.2) % PT (11.1-14.7) Seconds INR APTT (22.3-36.8) Seconds Sodium (137-145) mmol/L Potassium (3.4-5.0) mmol/L Chloride (98-107) mmol/L Carbon Dioxide (22-30) mmol/L Anion Gap (4-12) mmol/L BUN (9-20) mg/dL Creatinine (0.7-1.3) mg/dL Estim Creat Clear Calc ml/min Estimated GFR (59 - ) Glucose (65-110) mg/dL Calcium (8.4-10.2) mg/dL Total Bilirubin (0.2-1.3) mg/dL AST (17-59) U/L ALT (6-50) U/L Alkaline Phosphatase (38-126) U/L Troponin I < 0.012 (0.000-0.034) ng/mL NT-Pro-B Natriuret Pep (19.9-100) pg/mL Total Protein (6.3-8.2) g/dL Albumin (3.5-5.1) g/dL Lipase (23-300) U/L Urine Color (Yellow) Urine Appearance (Clear) Urine pH (5.0-9.0) Ur Specific [place] (1.001-1.035) Urine Protein (Negative) mg/dL Urine Glucose (UA) (Negative) mg/dL Urine Ketones (Negative) mg/dL Ur Blood (Man) (Negative) Urine Nitrate (Negative) Urine Bilirubin (Negative) Urine Urobilinogen (<2.0) mg/dL Leukocyte Esterase Rfl (Negative) CARINE/UL Urine RBC (0-2) /hpf Urine WBC (0-3) /hpf Ur Squamous Epith Cells (Few) /hpf Urine Bacteria /hpf Urine Casts Influenza A (RT-PCR) (Negative) Influenza B (RT-PCR) (Negative) RSV (RT-PCR) (Negative) SARS-CoV-2 RNA (RT-PCR) (Negative) Imaging Data Attestation: I personally reviewed and interpreted this imaging study as follows: Radiologist's impression: Impressions Chest X-Ray 01/28/25 18:31 IMPRESSION: 1. No acute findings. Atherosclerotic aorta. Pacemaker in place. Chest CTA 01/28/25 20:53 IMPRESSION: 1. No evidence of pulmonary emboli. Thoracic aorta shows no acute findings. Discharge Plan Discharge Clinical Impression: Acute UTI, Atypical chest pain, Chronic anticoagulation, Shortness of breath Patient Disposition: [facility] Jail[facility]As[facility] Living Condition: Stable Instructions: Antibiotic Form, Urinary Tract Infection in Men (ED) Additional Instructions: Please return to the ER with any worsening symptoms. Follow-up with primary care provider as soon as possible for further evaluation. Take all medications as prescribed, including regularly scheduled medications. Complete your full dose of antibiotics. You may use an inhaler if your shortness of breath returns. Patient Language: [place] Prescriptions: New cephalexin 500 mg capsule 500 mg PO Q8H 7 Days Qty: 21 0RF albuterol sulfate 90 mcg/actuation aerosol powdr breath activated 2 inh inhalation Q4-6H PRN (Reason: shortness of breath or wheezing) Qty: 1 0RF cephalexin 500 mg capsule 500 mg PO Q8H Qty: 21 0RF albuterol sulfate [Ventolin HFA] 90 mcg/actuation HFA aerosol inhaler 2 puff inhalation QID PRN (Reason: shortness of breath or wheezing) Qty: 8.5 0RF No Action meclizine 12.5 mg tablet 12.5 mg PO DAILY furosemide 20 mg tablet 20 mg PO DAILY metoprolol succinate 25 mg Tablet Extended Release 24 Hr 25 mg PO DAILY Eliquis 5 mg Tablet 5 mg PO Q12HR Qty: 1 0RF Rx Instructions: 2 Tablets (10mg) BID PO through 07/17 0900 (6 more doses) then 1 tab (5MG) BID PO starting on 07/17 at 2100 loratadine 10 mg Tablet 10 mg PO QHS Qty: 1 0RF fluticasone propionate [Flonase Allergy Relief] 50 mcg/actuation spray,suspension 2 spray intranasal BID Qty: 16 3RF Rx Instructions: administer into each nostril. Aim back/up/out acetaminophen 500 mg tablet 1,000 mg PO Q6H PRN (Reason: Pain (Scale Score 1-3)) sennosides-docusate sodium [Senna Plus] 8.6-50 mg Tablet 2 tab-cap PO BID PRN (Reason: Constipation) calcium carbonate-vitamin D3 [Oyster Shell Calcium-Vit D3] 500 mg-10 mcg (400 unit) Tablet 1 tablet PO DAILY methocarbamol 500 mg Tablet 500 mg PO TID Qty: 30 0RF atorvastatin 20 mg tablet 20 mg PO HS Qty: 90 0RF tamsulosin 0.4 mg capsule 0.4 mg PO HS Qty: 90 0RF Follow-up/Referrals: Shaun Dejesus MD [Primary Care Provider, [facility]] Stand Alone Forms: Group Home Discharge Time of Disposition: 22:10
[2025-01-28 19:22] VITALS: PULSE 79; RESP 16; O2SAT 98
[2025-01-28] MEDS: IPRATROPIUM 0.5 MG/ALBUTEROL SULFATE 2.5 MG (BASE) AMPUL.NEB 3 ML INHALATION (19:22)
[2025-01-28 19:30] VITALS: PULSE 80; RESP 16
--- NOTE | 2025-01-28 21:17 | ECG_ITS ---
Test Date: 2025-01-28 21:23:30 Measurements Intervals [place] Rate: 78 P: 49 SC: 160 QRS: -24 QRSD: 143 T: 125 QT: 418 QTc: 476 Interpretive Statements SINUS RHYTHM LEFT BUNDLE BRANCH BLOCK Electronically Signed On 01-28-2025 21:44:06 SIZE TESTER by Bradly Rashid D.O
[2025-01-28 21:23] LABS: Add Urine Microscopic? YES; Appearance Urine Clear (Clear); Glucose Urine UA Negative (Negative); Leukocyte Esterase Ur 2+ LEU/UL (Negative); Nitrate Urine Negative (Negative); Non Pathogenic Casts 0-2; Specific Grav Ur 1.025 (1.001-1.035)
[2025-01-28 21:53] LABS: Troponin I < 0.012 ng/mL (0.000-0.034)
[2025-01-28 21:56] LABS: Influenza A QL RT-PCR Negative (Negative); Influenza B QL RT-PCR Negative (Negative); RSV RNA, RT-PCR Negative (Negative); SARS-CoV-2 RNA PCR Negative (Negative)
[2025-01-28] MEDS: CEPHALEXIN 500 MG CAPSULE PO (22:57)
[2025-01-28 23:22] VITALS: BP 128/71; PULSE 92; RESP 15; O2SAT 98
== END 2025-01-28 23:25 ==
PROVIDERS: Emergency Medicine; Emergency Provider Registered Nurse; PCP Family Medicine
DX: N39.0 Urinary tract infection, site not specified (principal); R07.89 Other chest pain; R06.02 Shortness of breath; Z20.822 Contact with and (suspected) exposure to COVID-19; Z95.0 Presence of cardiac pacemaker; I48.91 Unspecified atrial fibrillation; N18.9 Chronic kidney disease, unspecified; I50.9 Heart failure, unspecified; G47.33 Obstructive sleep apnea (adult) (pediatric); Z99.89 Dependence on other enabling machines and devices; E78.5 Hyperlipidemia, unspecified; Z87.891 Personal history of nicotine dependence; Z79.01 Long term (current) use of anticoagulants
CPT/HCPCS: 36415; 71045; 71275; 80053; 81001; 83690; 83880; 84484; 85025; 85610; 85730; 87077; 87086; 87186; 87637; 93005; 94640; 99284; A9270; Q9967